=== PATIENT | male | born 1960 ===

== ENCOUNTER 2018-02-12 09:02 | Emergency (ER) | payer OTHER ==
[2018-02-12 09:08] VITALS: RESP 18
[2018-02-12] MEDS ORDERED: HYDROcodone/APAP 5-325MG 1 EACH TAB PO STA (09:36)
--- NOTE | 2018-02-12 09:37 | ED ---
Fall HPI - General Chief Complaint: Fall Stated Complaint: Fall, chest pain Time Seen by Provider: 02/12/18 09:25 Source: patient, RN notes reviewed Mode of arrival: ambulatory Limitations: no limitations - History of Present Illness Initial Comments: This a 57-year-old male presents emergency Department chief complaint rib injury. Patient states on Sunday he was working on a trailer states that he fell onto the edge of the trailer. Patient states she struck the center to left side of his lower ribs. He states it was sore but has progressively gotten worse. Hurts to take deep inspiration and when he bends forward over his ribs. Patient states he has no abdominal pain denies any hematuria or melena. Patient denies any head injury, loss conscious or any extremity injuries.. - Related Data Home Medications Medication Instructions Recorded Confirmed Flexeril(Unknown Dose) 1 tab PO ONCE PRN 02/12/18 02/12/18 Previous Rx's Medication Instructions Recorded Hydrocodone/Acetaminophen [[place] 1 tab PO Q6HR PRN #12 tab 02/12/18 5-325] Ibuprofen [Motrin] 600 mg PO Q8HR PRN #30 tab 02/12/18 Allergies Allergy/AdvReac Type Severity Reaction Status Date / Time No Known Allergies Allergy Verified 02/12/18 09:12 Review of Systems ROS Statement: Those systems with pertinent positive or pertinent negative responses have been documented in the HPI. ROS Other: All systems not noted in ROS Statement are negative. Past Medical History Past Medical History: No Reported History History of Any Multi-Drug Resistant Organisms: None Reported Past Surgical History: No Surgical Hx Reported Past Psychological History: No Psychological Hx Reported Smoking Status: Former smoker Past Alcohol Use History: Occasional Past Drug Use History: None Reported General Exam Limitations: no limitations General appearance: alert, in no apparent distress Head exam: Present: atraumatic, normocephalic, normal inspection Eye exam: Present: normal appearance, PERRL, EOMI. Absent: scleral icterus, conjunctival injection, periorbital swelling ENT exam: Present: normal exam, normal oropharynx, mucous membranes moist Neck exam: Present: normal inspection, full ROM. Absent: tenderness, meningismus, lymphadenopathy Respiratory exam: Present: normal lung sounds bilaterally, chest wall tenderness (Tenderness to the left anterior lateral lower ribs). Absent: respiratory distress, wheezes, rales, rhonchi, stridor Cardiovascular Exam: Present: regular rate, normal rhythm, normal heart sounds. Absent: systolic murmur, diastolic murmur, rubs, gallop, clicks GI/Abdominal exam: Present: soft, normal bowel sounds. Absent: distended, tenderness, guarding, rebound, rigid Extremities exam: Present: normal inspection, full ROM, normal capillary refill. Absent: tenderness, pedal edema, joint swelling, calf tenderness Back exam: Present: full ROM. Absent: tenderness, CVA tenderness (R), CVA tenderness (L) Skin exam: Present: warm, dry, intact, normal color. Absent: rash Course Vital Signs 02/12/18 02/12/18 02/12/18 09:05 11:17 12:38 Temperature 98.3 F 97.8 F Pulse Rate 86 74 64 Respiratory 18 18 18 Rate Blood Pressure 208/100 195/99 169/88 O2 Sat by Pulse 99 98 97 Oximetry Medical Decision Making - Medical Decision Making 57-year-old male presents from for fall, rib injury. There is no acute fracture. Patient was found be hypertensive patient had further workup at this time including labwork EKG and troponin. Patient thyroid is unremarkable EKG unremarkable. Patient blood pressure is elevated secondary to pain. Patient's blood pressure did trend down. He'll be given primary care physician to follow up with, provided pain control. We did discuss incentive spirometry. - Lab Data Result diagrams: 02/12/18 12:24 02/12/18 12:24 Lab Results 02/12/18 02/12/18 02/12/18 Range/Units 12:24 12:24 12:24 WBC 7.6 (3.8-10.6) k/uL RBC 4.98 (4.30-5.90) m/uL Hgb 15.6 (13.0-17.5) gm/dL Hct 46.8 (39.0-53.0) % MCV 93.9 (80.0-100.0) fL MCH 31.3 (25.0-35.0) pg MCHC 33.4 (31.0-37.0) g/dL RDW 13.7 (11.5-15.5) % Plt Count 250 (150-450) k/uL Neutrophils % 72 % Lymphocytes % 16 % Monocytes % 8 % Eosinophils % 1 % Basophils % 1 % Neutrophils # 5.5 (1.3-7.7) k/uL Lymphocytes # 1.2 (1.0-4.8) k/uL Monocytes # 0.6 (0-1.0) k/uL Eosinophils # 0.1 (0-0.7) k/uL Basophils # 0.1 (0-0.2) k/uL Sodium 140 (137-145) mmol/L Potassium 4.4 (3.5-5.1) mmol/L Chloride 101 (98-107) mmol/L Carbon Dioxide 27 (22-30) mmol/L Anion Gap 12 mmol/L BUN 11 (9-20) mg/dL Creatinine 0.79 (0.66-1.25) mg/dL Est GFR (CKD-EPI)AfAm >90 (>60 ml/min/1.73 sqM) Est GFR (CKD-EPI)NonAf >90 (>60 ml/min/1.73 sqM) Glucose 116 H (74-99) mg/dL Calcium 9.5 (8.4-10.2) mg/dL Total Bilirubin 1.2 (0.2-1.3) mg/dL AST 48 (17-59) U/L ALT 36 (21-72) U/L Alkaline Phosphatase 85 (38-126) U/L Troponin I <0.012 (0.000-0.034) ng/mL Total Protein 7.5 (6.3-8.2) g/dL Albumin 4.3 (3.5-5.0) g/dL Disposition Clinical Impression: Fall, Rib contusion, Hypertension Disposition: HOME SELF-CARE Condition: Stable Instructions: Rib Contusion (ED) Additional Instructions: Please return to the Emergency Department if symptoms worsen or any other concerns. Prescriptions: Hydrocodone/Acetaminophen [[place] 5-325] 1 tab PO Q6HR PRN #12 tab PRN Reason: Pain Ibuprofen [Motrin] 600 mg PO Q8HR PRN #30 tab PRN Reason: Pain Is patient prescribed a controlled substance at d/c from ED?: Yes If prescribed controlled substance>3 days was MAPS reviewed?: No When asked, does pt state using other controlled substances?: No Referrals: Charity Lind MD [REFERRING] - 1-2 days Time of Disposition: 13:46
--- NOTE | 2018-02-12 10:22 | XR ---
EXAMINATION TYPE: XR ribs LT w pa chest xray DATE OF EXAM: 02/12/2018 CLINICAL HISTORY: Chest and left-sided rib pain after injury. TECHNIQUE: Single frontal view of the chest is obtained. A frontal and oblique images of the left-jimmy ed ribs are acquired. COMPARISON: None FINDINGS: Somewhat low lung volumes are seen with patchy bibasilar linear atelectasis. No pleural eff usion or pneumothorax is appreciated bilaterally. The cardiac silhouette size is within normal limit s. The osseous structures are intact. Dedicated images left-sided ribs show no acute displaced fracture. Overlying soft tissue is unremarka ble. IMPRESSION: 1. Low lung volumes with patchy bibasilar atelectasis. 2. No acute displaced left-sided rib fractures are seen.
[2018-02-12] MEDS ORDERED: KETOROLAC 30 MG/ML 1 ML VIAL IVP STA (11:24)
[2018-02-12 13:04] LABS: Basophils # (A) 0.1 k/uL (0-0.2); Basophils % (A) 1 %; Eosinophils # (A) 0.1 k/uL (0-0.7); Eosinophils % (A) 1 %; HCT 46.8 % (39.0-53.0); HGB 15.6 gm/dL (13.0-17.5); Lymphocytes # (A) 1.2 k/uL (1.0-4.8); Lymphocytes % (A) 16 %; MCH 31.3 pg (25.0-35.0); MCHC 33.4 g/dL (31.0-37.0); MCV 93.9 fL (80.0-100.0); Mean Platelet Volume 7.1; Monocytes # (A) 0.6 k/uL (0-1.0); Monocytes % (A) 8 %; Neutrophils # (A) 5.5 k/uL (1.3-7.7); Neutrophils % (A) 72 %; Platelet Count 250 k/uL (150-450); RBC 4.98 m/uL (4.30-5.90); RDW 13.7 % (11.5-15.5); WBC 7.6 k/uL (3.8-10.6)
[2018-02-12 13:12] LABS: ALT 36 U/L (21-72); AST 48 U/L (17-59); Albumin 4.3 g/dL (3.5-5.0); Alkaline Phosphatase 85 U/L (38-126); Anion Gap 12 mmol/L; Blood Urea Nitrogen 11 mg/dL (9-20); Calcium 9.5 mg/dL (8.4-10.2); Carbon Dioxide 27 mmol/L (22-30); Chloride 101 mmol/L (98-107); Glucose 116 mg/dL (74-99); Potassium 4.4 mmol/L (3.5-5.1); Sodium 140 mmol/L (137-145); Total Bilirubin 1.2 mg/dL (0.2-1.3); Total Protein 7.5 g/dL (6.3-8.2)
[2018-02-12 14:07] VITALS: BP 173/88; PULSE 68; TEMP 97.9
== END 2018-02-12 14:15 | disposition home or self-care (01) ==
LOC: EC 09:02
DX: S20.212A Contusion of left front wall of thorax, initial encounter (principal); I10 Essential (primary) hypertension; Z87.891 Personal history of nicotine dependence; W17.89XA Other fall from one level to another, initial encounter; Y93.89 Activity, other specified
CPT/HCPCS: 36415; 93005; 80053; 84484; 85025; 71101; 99284; 96374; J1885

== ENCOUNTER 2022-01-21 15:04 | Inpatient (IN) | payer OTHER ==
[2022-01-21] MEDS ORDERED: SODIUM CHLORIDE 0.9% 1,000 ML IV STA ×2 (16:52→19:45)
[2022-01-21] MEDS ORDERED: ONDANSETRON 4 MG/2 ML VIAL IVP STA (16:52)
[2022-01-21] MEDS ORDERED: KETOROLAC 15 MG/ML 1 ML VIAL IVP STA (16:52)
--- NOTE | 2022-01-21 17:07 | ED ---
General Adult HPI - General Chief complaint: Abdominal Pain Stated complaint: Abd pain Time Seen by Provider: 01/21/22 16:41 Source: patient, RN notes reviewed Mode of arrival: ambulatory Limitations: no limitations - History of Present Illness Initial comments: 61-year-old male presents to the emergency department for evaluation of lower abdominal pain, onset 2 weeks ago which was preceded by eating a sandwich he suspects was spoiled. Reports he then developed nausea, vomiting, and diarrhea, and has had ongoing lower abdominal discomfort since. Describes the pain as discomfort, not cramping or burning. Reports ongoing episodes of diarrhea along with normal formed stool. States he has been experiencing some shortness of breath with activity over the past few days. Denies fever, chills, body aches, headache, dizziness, chest pain, cough, hematochezia, dysuria, or hematuria. - Related Data Home Medications Medication Instructions Recorded Confirmed Acetaminophen [Tylenol] 1,000 mg PO Q4-6H PRN 01/21/22 01/21/22 Previous Rx's Medication Instructions Recorded Ibuprofen [Motrin] 600 mg PO Q8HR PRN #30 tab 02/12/18 Allergies Allergy/AdvReac Type Severity Reaction Status Date / Time No Known Allergies Allergy Verified 01/21/22 20:50 Review of Systems ROS Statement: Those systems with pertinent positive or pertinent negative responses have been documented in the HPI. ROS Other: All systems not noted in ROS Statement are negative. Past Medical History Past Medical History: No Reported History Additional Past Medical History / Comment(s): Diverticulitis History of Any Multi-Drug Resistant Organisms: None Reported Past Surgical History: No Surgical Hx Reported Past Psychological History: No Psychological Hx Reported Smoking Status: Never smoker Past Alcohol Use History: Occasional Past Drug Use History: Marijuana General Exam Limitations: no limitations (Well-developed, well-nourished male in no acute distress. Initial temperature 97.1, pulse 102, respirations 18, blood pressure 146/78, pulse ox 100% on room air.) General appearance: alert, in no apparent distress Eye exam: Present: normal appearance, PERRL, EOMI. Absent: scleral icterus, con junctival injection, periorbital swelling ENT exam: Present: normal exam, normal oropharynx, mucous membranes moist Neck exam: Present: normal inspection, full ROM. Absent: tenderness, meningismus, lymphadenopathy Respiratory exam: Present: normal lung sounds bilaterally. Absent: respiratory distress, wheezes, rales, rhonchi, stridor, chest wall tenderness Cardiovascular Exam: Present: regular rate, normal rhythm, normal heart sounds. Absent: systolic murmur, diastolic murmur, rubs, gallop, clicks GI/Abdominal exam: Present: soft, normal bowel sounds. Absent: distended, tenderness, guarding, rebound, rigid Back exam: Present: normal inspection. Absent: CVA tenderness (R), CVA tenderness (L) Neurological exam: Present: alert, oriented X3, normal gait Psychiatric exam: Present: normal affect, normal mood Skin exam: Present: warm, dry, intact, normal color Course Vital Signs 01/21/22 01/21/22 01/21/22 15:11 16:52 21:00 Temperature 97.1 F L 97.8 F Pulse Rate 102 H 88 75 Respiratory 18 18 18 Rate Blood Pressure 146/78 138/72 121/71 O2 Sat by Pulse 100 100 100 Oximetry - Reevaluation(s) Reevaluation #1: 01/21/22 19:15 Patient updated on results at this point. Discussed hospital admission. He is agreeable with this plan of care. 01/21/22 19:[address] Espinosa regarding CT findings. 01/21/22 19:[address] Ho regarding this patient's care and CT results. Patient will be NPO and antibiotic therapy initiated. Medicine consulted. Patient and spouse updated on plan of care. He remains comfortable with no complaints of pain at this time. Medical Decision Making - Medical Decision Making This is a pleasant 61-year-old male with no significant past medical history who presents to the emergency department for evaluation of abdominal discomfort accompanied by nausea and vomiting x2 weeks. Upon exam, patient is pleasant and is in no acute distress. Patient appears somewhat pale and complains of lower abdominal pain, though is mildly uncomfortable across the mid abdomen upon palpation. He is not experiencing any vomiting at this time. He did complain of shortness of breath with activity; chest x-ray was unremarkable and EKG shows normal sinus rhythm with no ectopy. Patient was given IV fluids, Toradol and Zofran with significant improvement. Laboratory studies were obtained showing leukocytosis, hyponatremia, mild lactic acidosis, and hemoglobin 7.5. CT is concerning for small perforation and possible developing abscess. I did speak with Dr. Ho regarding these findings. Patient will be admitted and IV antibiotic treatment will be initiated. Attending: Thad. - Lab Data Result diagrams: 01/21/22 17:24 01/21/22 17:24 Lab Results 01/21/22 01/21/22 01/21/22 Range/Units 17:24 17:24 17:24 WBC 18.5 H (3.8-10.6) k/uL RBC 2.94 L (4.30-5.90) m/uL Hgb 7.5 L (13.0-17.5) gm/dL Hct 24.2 L (39.0-53.0) % MCV 82.2 (80.0-100.0) fL MCH 25.6 (25.0-35.0) pg MCHC 31.2 (31.0-37.0) g/dL RDW 23.5 H (11.5-15.5) % Plt Count 420 (150-450) k/uL MPV 7.3 Neutrophils % 81 % Lymphocytes % 10 % Monocytes % 6 % Eosinophils % 1 % Basophils % 0 % Neutrophils # 15.0 H (1.3-7.7) k/uL Lymphocytes # 1.8 (1.0-4.8) k/uL Monocytes # 1.1 H (0-1.0) k/uL Eosinophils # 0.1 (0-0.7) k/uL Basophils # 0.1 (0-0.2) k/uL Hypochromasia Marked Anisocytosis Moderate Microcytosis Slight Sodium 126 L (137-145) mmol/L Potassium 3.6 (3.5-5.1) mmol/L Chloride 97 L (98-107) mmol/L Carbon Dioxide 22 (22-30) mmol/L Anion Gap 7 mmol/L BUN 14 (9-20) mg/dL Creatinine 0.89 (0.66-1.25) mg/dL Est GFR (CKD-EPI)AfAm >90 (>60 ml/min/1.73 sqM) Est GFR (CKD-EPI)NonAf >90 (>60 ml/min/1.73 sqM) Glucose 127 H (74-99) mg/dL Lactic Ac Sepsis Rflx Plasma Lactic Acid Karl 2.4 H* (0.7-2.0) mmol/L Calcium 7.3 L (8.4-10.2) mg/dL Total Bilirubin 4.6 H (0.2-1.3) mg/dL AST 48 (17-59) U/L ALT 18 (4-49) U/L Alkaline Phosphatase 258 H (38-126) U/L Troponin I (0.000-0.034) ng/mL Total Protein 7.0 (6.3-8.2) g/dL Albumin 2.3 L (3.5-5.0) g/dL Lipase 35 (23-300) U/L Coronavirus (PCR) (Not Detectd) 01/21/22 01/21/22 01/21/22 Range/Units 17:24 17:33 17:54 WBC (3.8-10.6) k/uL RBC (4.30-5.90) m/uL Hgb (13.0-17.5) gm/dL Hct (39.0-53.0) % MCV (80.0-100.0) fL MCH (25.0-35.0) pg MCHC (31.0-37.0) g/dL RDW (11.5-15.5) % Plt Count (150-450) k/uL MPV Neutrophils % % Lymphocytes % % Monocytes % % Eosinophils % % Basophils % % Neutrophils # (1.3-7.7) k/uL Lymphocytes # (1.0-4.8) k/uL Monocytes # (0-1.0) k/uL Eosinophils # (0-0.7) k/uL Basophils # (0-0.2) k/uL Hypochromasia Anisocytosis Microcytosis Sodium (137-145) mmol/L Potassium (3.5-5.1) mmol/L Chloride (98-107) mmol/L Carbon Dioxide (22-30) mmol/L Anion Gap mmol/L BUN (9-20) mg/dL Creatinine (0.66-1.25) mg/dL Est GFR (CKD-EPI)AfAm (>60 ml/min/1.73 sqM) Est GFR (CKD-EPI)NonAf (>60 ml/min/1.73 sqM) Glucose (74-99) mg/dL Lactic Ac Sepsis Rflx Y Plasma Lactic Acid Karl (0.7-2.0) mmol/L Calcium (8.4-10.2) mg/dL Total Bilirubin (0.2-1.3) mg/dL AST (17-59) U/L ALT (4-49) U/L Alkaline Phosphatase (38-126) U/L Troponin I <0.012 (0.000-0.034) ng/mL Total Protein (6.3-8.2) g/dL Albumin (3.5-5.0) g/dL Lipase (23-300) U/L Coronavirus (PCR) Not Detected (Not Detectd) - EKG Data EKG shows normal: sinus rhythm Rate: normal EKG Comments: EKG obtained at 1730 shows sinus rhythm. Ventricular rate 82, KS interval 149, QRS duration 101, QT/QTC 406/445. Interpretation normal ECG. - Radiology Data Radiology results: report reviewed, image reviewed CT of the abdomen and pelvis with contrast was obtained. Report was reviewed in its entirety. Impression per Dr. Velasquez is there is abdominal ascites. There is extraluminal air bubbles seen in the left posterior abdomen as well as some complex density that is suggestive of developing abscess. This is best seen on axial image 50-53. Ultrasound of the right upper quadrant was obtained. Report was reviewed in its entirety. Impression per Dr. Espinosa is no gallstones or dilated ducts. Minimal gallbladder wall thickening could relate to cholecystitis without a gallstone present. Two-view chest x-ray was obtained. Report was reviewed in its entirety. I mpression per Dr. Espinosa is minimal subsegmental atelectasis. Normal heart. Disposition Clinical Impression: Nausea, Abdominal pain, Acute abdomen Disposition: ADMITTED IP TO THIS HOSP Condition: Serious Decision Date: 01/21/22 Decision Time: 19:56
[2022-01-21 17:38] LABS: Anisocytosis Moderate; Basophils # (A) 0.1 k/uL (0-0.2); Basophils % (A) 0 %; Eosinophils # (A) 0.1 k/uL (0-0.7); Eosinophils % (A) 1 %; HCT 24.2 % (39.0-53.0); HGB 7.5 gm/dL (13.0-17.5); Hypochromasia Marked; Lymphocytes # (A) 1.8 k/uL (1.0-4.8); Lymphocytes % (A) 10 %; MCH 25.6 pg (25.0-35.0); MCHC 31.2 g/dL (31.0-37.0); MCV 82.2 fL (80.0-100.0); Mean Platelet Volume 7.3; Microcytosis Slight; Monocytes # (A) 1.1 k/uL (0-1.0); Monocytes % (A) 6 %; Neutrophils % (A) 81 %; Platelet Count 420 k/uL (150-450); RBC 2.94 m/uL (4.30-5.90); RDW 23.5 % (11.5-15.5); WBC 18.5 k/uL (3.8-10.6)
[2022-01-21 17:52] LABS: ALT 18 U/L (4-49); AST 48 U/L (17-59); African American GFR (CKD) >90 (>60 ml/min/1.73 sqM); Albumin 2.3 g/dL (3.5-5.0); Alkaline Phosphatase 258 U/L (38-126); Anion Gap 7 mmol/L; Blood Urea Nitrogen 14 mg/dL (9-20); Calcium 7.3 mg/dL (8.4-10.2); Carbon Dioxide 22 mmol/L (22-30); Chloride 97 mmol/L (98-107); Glucose 127 mg/dL (74-99); Lipase 35 U/L (23-300); Non-African American GFR(CKD) >90 (>60 ml/min/1.73 sqM); Potassium 3.6 mmol/L (3.5-5.1); Sodium 126 mmol/L (137-145); Total Bilirubin 4.6 mg/dL (0.2-1.3)
--- NOTE | 2022-01-21 18:13 | XR ---
EXAMINATION TYPE: XR chest 2V DATE OF EXAM: 01/21/2022 COMPARISON: NONE HISTORY: Short of breath TECHNIQUE: 2 views FINDINGS: There is small linear density left lung base. Heart is normal. There is no heart failure. There are chest leads. Costophrenic angles are clear. IMPRESSION: Minimal subsegmental atelectasis. Normal heart.
--- NOTE | 2022-01-21 19:31 | CT ---
EXAMINATION TYPE: CT abdomen pelvis w con DATE OF EXAM: 01/21/2022 COMPARISON: None HISTORY: Generalized abdominal pain. CT DLP: 1492.5 mGycm Automated exposure control for dose reduction was used. CONTRAST: Performed with IV Contrast, patient injected with 100ml mL of Isovue 300. Images obtained from the diaphragm to the floor the pelvis with IV contrast. There is some calcified pleural plaque at the right lung base. There is no pleural effusion. Heart si ze is normal. No pericardial effusion. Liver and spleen are intact. Stomach is intact. There is no evidence of pancreatic mass. Gallbladder appears normal. There is no adrenal mass. Kidneys show satisfactory contrast opacification. There is no hydronephrosi s. There is no retroperitoneal adenopathy. Bladder distends smoothly. There is no inguinal hernia. There is mild abdominal ascites fluid. There is no evidence of a bowel obstruction. There is some fat stranding and extraluminal air and unusual fluid accumulation in the left mid abdomen. The lumbar vertebrae have normal alignment. Posterior elements show spondylolysis at L5 level. No spo ndylolisthesis.. The bony pelvis is intact. IMPRESSION: There is abdominal ascites. There is extraluminal air bubbles seen in the left posterior abdomen as w ell as some complex density that is suggestive of developing abscess. This is best seen on axial imag e 50-53. This exam was discussed with the emergency room attending staff at 7:30 PM.
[2022-01-21] MEDS ORDERED: ONDANSETRON 4 MG/2 ML VIAL IVP PRN (19:47)
[2022-01-21] MEDS ORDERED: NALOXONE 0.4 MG/ML 1 ML VIAL IV PRN (19:47)
[2022-01-21] MEDS ORDERED: HYDROmorphone 0.5 MG/0.5 ML SYRINGE IVP PRN (19:47)
[2022-01-21] MEDS ORDERED: PIPERACILLIN-TAZOBACTAM 3.375 GM in SODIUM CHLORIDE 0.9% 100 ML IVPB ONE (20:00)
[2022-01-21] MEDS ORDERED: metroNIDAZOLE-NS PMX 500 MG in SALINE 1 100ML.BAG IVPB STA (20:17)
--- NOTE | 2022-01-21 20:56 | US ---
EXAMINATION TYPE: US abdomen limited DATE OF EXAM: 01/21/2022 COMPARISON: NONE CLINICAL HISTORY: vomiting, elevated bilirubin. EXAM MEASUREMENTS: Liver Length: 17.9 cm Gallbladder Wall: 0.4 cm CBD: 0.4 cm Right Kidney: 11.7 x 6.0 x 5.2 cm Extensive overlying bowel gas, large body habitus, technically difficult, limited study. Pancreas: Obscured by bowel gas Liver: Increased attenuation, decreased visualization of vessels suggestive of fatty infiltrate, upp er limits of normal in size Gallbladder: possible sludge, wall slightly thickened Evidence for sonographic Naav's sign: no CBD: very limited visualization Right Kidney: limited views appear wnl IMPRESSION: No gallstones or dilated ducts. Minimal gallbladder wall thickening could relate to cholecystitis wit hout a gallstone present.
[2022-01-21] MEDS: SODIUM CHLORIDE 0.9% 1,000 ML IV SCH (21:18)
[2022-01-21 21:38] LABS: INR 1.2 (<1.2); Prothrombin Time 12.4 sec (9.0-12.0)
[2022-01-21 21:51] LABS: Appearance,Urine Clear (Clear); Bilirubin,Urine 1+ (Negative); Blood,Urine Negative (Negative); Color,Urine Yellow; Glucose,Urine (UA) Negative (Negative); Ketones,Urine Negative (Negative); Leukocyte Esterase,Urine Negative (Negative); Nitrite,Urine Negative (Negative); Protein,Urine Negative (Negative)
[2022-01-22] MEDS: PIPERACILLIN-TAZOBACTAM 3.375 GM in SODIUM CHLORIDE 0.9% 100 ML IVPB SCH ×4 (00:54→23:34)
[2022-01-22] MEDS: HEPARIN SODIUM,PORCINE/PF 5,000 UNIT/0.5 ML SYRINGE SQ SCH ×4 (00:55→23:35)
[2022-01-22] MEDS: SODIUM CHLORIDE 0.9% 1,000 ML IV SCH ×3 (05:00→22:37)
--- NOTE | 2022-01-22 09:24 | P.GSHP ---
History of Present Illness H&P Date: 01/22/22 Chief Complaint: Bowel perforation 61-year-old male came to the hospital with complaints of lower abdominal pain left slightly more than right. Patient states symptoms of an going on for the last few weeks poor increasing somewhat. Apparently in the ER he felt better after the initial IV fluids and pain medicine and wanted to go home. He was noted to have an elevated white blood cell count, elevated bilirubin and alkaline phosphatase. CAT scan was performed which shows free fluid within the abdomen and multiple small extraluminal pockets of air adjacent to the proximal sigmoid colon extending in the retroperitoneum. Patient states his pain today is a 2 out of 10. No history of known diverticulitis or bowel issues. No colonoscopy. Denies fevers or chills. He is afebrile overnight. No tachycardia. Repeat labs pending. INR is normal. Patient says he has been drinking for years and drinks 2-3 beers on a daily basis. In the past he did drink liquor more heavily. Was never told that he has any issues with his liver. - Review of Systems Comment: The patient denies any acute changes in vision or hearing, no dysphagia or odynophagia, no chest pain or shortness of breath, no dysuria or hematuria, no headache, no runny nose, no rectal bleeding or melena, no unexplained weight loss Past Medical History Past Medical History: No Reported History Additional Past Medical History / Comment(s): Diverticulitis History of Any Multi-Drug Resistant Organisms: None Reported Past Surgical History: No Surgical Hx Reported Past Psychological History: No Psychological Hx Reported Smoking Status: Never smoker Past Alcohol Use History: Occasional Past Drug Use History: Marijuana Medications and Allergies Home Medications Medication Instructions Recorded Confirmed Type Ibuprofen [Motrin] 600 mg PO Q8HR PRN #30 tab 02/12/18 01/21/22 Rx Acetaminophen [Tylenol] 1,000 mg PO Q4-6H PRN 01/21/22 01/21/22 History Allergies Allergy/AdvReac Type Severity Reaction Status Date / Time No Known Allergies Allergy Verified 01/21/22 20:50 Surgical - Exam Vital Signs Temp Pulse Resp BP Pulse Ox 97.1 F L 102 H 18 146/78 100 01/21/22 15:11 01/21/22 15:11 01/21/22 15:11 01/21/22 15:11 01/21/22 15:11 Physical exam: General: Well-developed, well-nourished HEENT: Normocephalic, sclerae nonicteric Abdomen: Mild bilateral lower quadrant tenderness, nondistended Extremities: No edema Neuro: Alert and oriented Results - Labs 01/21/22 17:24 01/21/22 17:24 Abnormal Lab Results - Last 24 Hours (Table) 01/21/22 01/21/22 01/21/22 Range/Units 17:24 17:24 17:24 WBC 18.5 H (3.8-10.6) k/uL RBC 2.94 L (4.30-5.90) m/uL Hgb 7.5 L (13.0-17.5) gm/dL Hct 24.2 L (39.0-53.0) % RDW 23.5 H (11.5-15.5) % Neutrophils # 15.0 H (1.3-7.7) k/uL Monocytes # 1.1 H (0-1.0) k/uL PT (9.0-12.0) sec INR (<1.2) Sodium 126 L (137-145) mmol/L Chloride 97 L (98-107) mmol/L Glucose 127 H (74-99) mg/dL Plasma Lactic Acid Karl 2.4 H* (0.7-2.0) mmol/L Calcium 7.3 L (8.4-10.2) mg/dL Total Bilirubin 4.6 H (0.2-1.3) mg/dL Alkaline Phosphatase 258 H (38-126) U/L Albumin 2.3 L (3.5-5.0) g/dL Urine Bilirubin (Negative) 01/21/22 01/21/22 Range/Units 20:57 21:22 WBC (3.8-10.6) k/uL RBC (4.30-5.90) m/uL Hgb (13.0-17.5) gm/dL Hct (39.0-53.0) % RDW (11.5-15.5) % Neutrophils # (1.3-7.7) k/uL Monocytes # (0-1.0) k/uL PT 12.4 H (9.0-12.0) sec INR 1.2 H (<1.2) Sodium (137-145) mmol/L Chloride (98-107) mmol/L Glucose (74-99) mg/dL Plasma Lactic Acid Karl (0.7-2.0) mmol/L Calcium (8.4-10.2) mg/dL Total Bilirubin (0.2-1.3) mg/dL Alkaline Phosphatase (38-126) U/L Albumin (3.5-5.0) g/dL Urine Bilirubin 1+ H (Negative) Diabetes panel 01/21/22 Range/Units 17:24 Sodium 126 L (137-145) mmol/L Potassium 3.6 (3.5-5.1) mmol/L Chloride 97 L (98-107) mmol/L Carbon Dioxide 22 (22-30) mmol/L BUN 14 (9-20) mg/dL Creatinine 0.89 (0.66-1.25) mg/dL Glucose 127 H (74-99) mg/dL Calcium 7.3 L (8.4-10.2) mg/dL AST 48 (17-59) U/L ALT 18 (4-49) U/L Alkaline Phosphatase 258 H (38-126) U/L Total Protein 7.0 (6.3-8.2) g/dL Albumin 2.3 L (3.5-5.0) g/dL Calcium panel 01/21/22 Range/Units 17:24 Calcium 7.3 L (8.4-10.2) mg/dL Albumin 2.3 L (3.5-5.0) g/dL Pituitary panel 01/21/22 Range/Units 17:24 Sodium 126 L (137-145) mmol/L Potassium 3.6 (3.5-5.1) mmol/L Chloride 97 L (98-107) mmol/L Carbon Dioxide 22 (22-30) mmol/L BUN 14 (9-20) mg/dL Creatinine 0.89 (0.66-1.25) mg/dL Glucose 127 H (74-99) mg/dL Calcium 7.3 L (8.4-10.2) mg/dL Adrenal panel 01/21/22 Range/Units 17:24 Sodium 126 L (137-145) mmol/L Potassium 3.6 (3.5-5.1) mmol/L Chloride 97 L (98-107) mmol/L Carbon Dioxide 22 (22-30) mmol/L BUN 14 (9-20) mg/dL Creatinine 0.89 (0.66-1.25) mg/dL Glucose 127 H (74-99) mg/dL Calcium 7.3 L (8.4-10.2) mg/dL Total Bilirubin 4.6 H (0.2-1.3) mg/dL AST 48 (17-59) U/L ALT 18 (4-49) U/L Alkaline Phosphatase 258 H (38-126) U/L Total Protein 7.0 (6.3-8.2) g/dL Albumin 2.3 L (3.5-5.0) g/dL Assessment and Plan (1) Bowel perforation Narrative/Plan: 61-year-old male with presentation of the ER for lower abdominal pain. Patient's CAT scan looks far worse than the patient. His exam and his subjective complaints are quite benign. CAT scan suggests probable perforated diverticulitis localized to the retroperitoneum. Discussed options with patient and his at the bedside. We'll continue with a nonoperative approach given the patient's exam findings. Continue broad-spectrum antibiotics. Begin clear liquid diet. Suspect fluid in the abdomen is related to chronic liver disease and ascites from that. We'll consult GI to evaluate for possible liver disease. Current Visit: Yes Status: Acute Code(s): K63.1 - PERFORATION OF INTESTINE (NONTRAUMATIC) SNOMED Code(s): 94195856
[2022-01-22 09:38] LABS: African American GFR (CKD) 112.5 (60.0-200.0); Anion Gap 9.6 mmol/L (10.00-18.00); BUN/Creat Ratio 12.88 Ratio (12.00-20.00); Blood Urea Nitrogen 10.3 mg/dL (9.0-27.0); Calcium 7.3 mg/dL (8.7-10.3); Carbon Dioxide 21.4 mmol/L (20.0-27.5); Non-African American GFR(CKD) 97.1 (60.0-200.0); Potassium 3.8 mmol/L (3.5-5.5)
[2022-01-22 10:52] LABS: Basophils # (A) 0.06 X 10*3/uL (0.00-0.10); Basophils % (A) 0.4 %; Eosinophils # (A) 0.31 X 10*3/uL (0.04-0.35); Eosinophils % (A) 1.8 %; Immature Grans, Automated 0.6 %; Lymphocytes # (A) 2.02 X 10*3/uL (0.90-5.00); Lymphocytes % (A) 11.9 %; Monocytes # (A) 1.61 X 10*3/uL (0.20-1.00); Monocytes % (A) 9.5 %; NRBC Per 100 WBC 0 /100 WBCS (0.0-0.0); Neutrophils # (A) 12.82 X 10*3/uL (1.80-7.70); Neutrophils % (A) 75.8 %
[2022-01-22 10:54] LABS: HCT 21.3 % (39.6-50.0); HGB 6.3 g/dL (13.0-17.0); Hypochromasia (M) 2+; MCH 24.1 pg (27.0-32.0); MCHC 29.6 g/dL (32.0-37.0); MCV 81.6 fL (80.0-97.0); Mean Platelet Volume 10.2 fL (9.5-12.2); Platelet Count 348 X 10*3/uL (140-440); RBC 2.61 X 10*6/uL (4.40-5.60); RDW 27.7 % (11.5-14.5); Target Cells 2+; WBC 16.92 X 10*3/uL (4.50-10.00)
[2022-01-22] MEDS: metroNIDAZOLE-NS PMX 500 MG in SALINE 1 100ML.BAG IVPB SCH ×2 (17:18→23:35)
--- NOTE | 2022-01-22 17:18 | P.CONS ---
History of Present Illness - Reason for Consult Consult date: 01/22/22 Medical management Requesting physician: Colt Ho - Chief Complaint Abdominal pain - History of Present Illness Past medical history that presents the ED for bilateral lower quadrant abdominal pain. Patient reports pain that started 2 weeks ago that is progressively been getting worse. Pain is cramping in nature, 5 out of 10 in severity and nonradiating. He reports no nausea or vomiting. He reports no hematemesis or melena. He does report a history of drinking daily 2-3 beers. He reports no history of alcohol withdrawal. He denies any headache, lower shunt edema, fever or chills, cough, chest pain, shortness of breath, palpitations, changes in urination. No changes in appetite or weight. He denies any dizziness, numbness/weakness/tingling of the extremities. In the ED, his vital signs were stable. CBC showed a leukocytosis of 18.5 and hemoglobin of 7.5. INR was 1.2. CMP showed sodium 126, chloride of 97, glucose 127, calcium 7.3, total bilirubin of 4.6, alkaline phosphatase 258. Troponin was less than 0.012 with EKG showing no ST changes. Urinalysis positive for 1+ bilirubin. COVID-[address] abdomen and pelvis showed abdominal ascites, extraluminal air bubbles seen in the left posterior abdomen as well as some complex density suggestive of developing abscess. Gallbladder ultrasound shows no gallstones or dilated ducts, minimal gallbladder wall thickening could be related to cholecystitis. Patient is admitted to surgery with medicine on consult. Review of systems have been reviewed and no additional remarkable complaints except as discussed above. General: [non toxic], [no distress], [appears at stated age] Derm: [warm], [dry] Head: [atraumatic], [normocephalic], [symmetric] Eyes: [EOMI], [no lid lag], [icteric sclera] Mouth: [no lip lesion], [mucus membranes moist] Cardiovascular: [S1S2 reg], [no murmur] Lungs: [CTA bilateral], [no rhonchi, no rales] , [no accessory muscle use] Abdominal: [soft], [ nontender to palpation], [no guarding] Ext: [no gross muscle atrophy], [no edema], [no contractures] Neuro: [no focal neuro deficits] Psych: [Alert], [oriented], [appropriate affect] #Perforated diverticulitis #Possible abdominal abscess #Acute blood loss anemia #Hyponatremia #Transaminitis #Chronic alcohol abuse #Morbid obesity Patient presents with abdominal pain that has been ongoing for the past 2 weeks. His abdominal exam is benign. He is hemodynamically stable. CT shows possible perforated diverticulitis and possible abdominal abscess formation. He has been started on Zosyn and Flagyl IV. Blood cultures have been collected. General surgery has evaluated the patient and recommends conservative management for now. GI has also been consulted for further management of this patient. His hemoglobin has dropped from 7.5-6.3. He'll be transfused 1 unit PRBC and CBC will be ordered tomorrow. His transaminitis and elevated total bilirubin is likely related to long-standing alcohol abuse. There are signs of cirrhosis. This could also be the cause for his hyponatremia. There is also a component of dehydration. He will be hydrated with normal saline at 130 mL/h. BMP will be repeated tomorrow morning. Thank you for this consult. Please call sound physicians with additional q uestions or concerns. DVT prophylaxis: SCD boots. Patient names his Chantelle decision maker. He can make decisions for himself. Patient would like to be full code. Past Medical History Past Medical History: No Reported History Additional Past Medical History / Comment(s): Diverticulitis History of Any Multi-Drug Resistant Organisms: None Reported Past Surgical History: No Surgical Hx Reported Past Psychological History: No Psychological Hx Reported Smoking Status: Never smoker Past Alcohol Use History: Occasional Past Drug Use History: Marijuana Medications and Allergies Home Medications Medication Instructions Recorded Confirmed Type Ibuprofen [Motrin] 600 mg PO Q8HR PRN #30 tab 02/12/18 01/21/22 Rx Acetaminophen [Tylenol] 1,000 mg PO Q4-6H PRN 01/21/22 01/21/22 History Allergies Allergy/AdvReac Type Severity Reaction Status Date / Time No Known Allergies Allergy Verified 01/21/22 20:50 Physical Exam Vitals: Vital Signs Temp Pulse Pulse Resp BP BP Pulse Ox 01/22/22 17:08 98.9 F 85 16 115/71 96 01/22/22 15:16 98.2 F 89 16 139/80 01/22/22 14:46 99.4 F 86 16 129/76 99 01/22/22 14:36 99.1 F 91 18 151/83 99 01/22/22 14:00 97.6 F 92 18 100/57 99 01/22/22 08:00 98.8 F 74 16 106/66 98 01/22/22 02:00 98.6 F 80 16 123/67 97 01/21/22 22:25 97.8 F 83 17 127/66 98 01/21/22 21:00 75 18 121/71 100 Intake and Output 01/22/22 01/22/22 01/22/22 06:59 14:59 22:59 Intake Total 0 310 Balance 0 310 Intake: Blood Product 0 310 Rc As-1 Unit 0 310 [id number] Other: # Voids 1 Results CBC & Chem 7: 01/22/22 03:41 01/22/22 03:41 Labs: Abnormal Lab Results - Last 24 Hours (Table) 01/21/22 01/21/22 01/21/22 Range/Units 17:24 17:24 17:24 WBC 18.5 H (3.8-10.6) k/uL RBC 2.94 L (4.30-5.90) m/uL Hgb 7.5 L (13.0-17.5) gm/dL Hct 24.2 L (39.0-53.0) % MCH (27.0-32.0) pg MCHC (32.0-37.0) g/dL RDW 23.5 H (11.5-15.5) % Immature Gran # (0.00-0.04) X 10*3/uL Neutrophils # 15.0 H (1.3-7.7) k/uL Monocytes # 1.1 H (0-1.0) k/uL PT (9.0-12.0) sec INR (<1.2) Sodium 126 L (137-145) mmol/L Chloride 97 L (98-107) mmol/L Anion Gap (10.00-18.00) mmol/L Glucose 127 H (74-99) mg/dL Plasma Lactic Acid Karl 2.4 H* (0.7-2.0) mmol/L Calcium 7.3 L (8.4-10.2) mg/dL Total Bilirubin 4.6 H (0.2-1.3) mg/dL Alkaline Phosphatase 258 H (38-126) U/L Albumin 2.3 L (3.5-5.0) g/dL Urine Bilirubin (Negative) Crossmatch 01/21/22 01/21/22 01/21/22 Range/Units 20:57 20:57 21:22 WBC (3.8-10.6) k/uL RBC (4.30-5.90) m/uL Hgb (13.0-17.5) gm/dL Hct (39.0-53.0) % MCH (27.0-32.0) pg MCHC (32.0-37.0) g/dL RDW (11.5-15.5) % Immature Gran # (0.00-0.04) X 10*3/uL Neutrophils # (1.3-7.7) k/uL Monocytes # (0-1.0) k/uL PT 12.4 H (9.0-12.0) sec INR 1.2 H (<1.2) Sodium (137-145) mmol/L Chloride (98-107) mmol/L Anion Gap (10.00-18.00) mmol/L Glucose (74-99) mg/dL Plasma Lactic Acid Karl (0.7-2.0) mmol/L Calcium (8.4-10.2) mg/dL Total Bilirubin (0.2-1.3) mg/dL Alkaline Phosphatase (38-126) U/L Albumin (3.5-5.0) g/dL Urine Bilirubin 1+ H (Negative) Crossmatch See Detail 01/22/22 01/22/22 Range/Units 03:41 03:41 WBC 16.92 H (3.8-10.6) k/uL RBC 2.61 L (4.30-5.90) m/uL Hgb 6.3 L* (13.0-17.5) gm/dL Hct 21.3 L (39.0-53.0) % MCH 24.1 L (27.0-32.0) pg MCHC 29.6 L (32.0-37.0) g/dL RDW 27.7 H (11.5-15.5) % Immature Gran # 0.10 H (0.00-0.04) X 10*3/uL Neutrophils # 12.82 H (1.3-7.7) k/uL Monocytes # 1.61 H (0-1.0) k/uL PT (9.0-12.0) sec INR (<1.2) Sodium 131 L (137-145) mmol/L Chloride (98-107) mmol/L Anion Gap 9.60 L (10.00-18.00) mmol/L Glucose (74-99) mg/dL Plasma Lactic Acid Karl (0.7-2.0) mmol/L Calcium 7.3 L (8.4-10.2) mg/dL Total Bilirubin (0.2-1.3) mg/dL Alkaline Phosphatase (38-126) U/L Albumin (3.5-5.0) g/dL Urine Bilirubin (Negative) Crossmatch
[2022-01-22] MEDS ORDERED: SODIUM CHLORIDE 0.9% 500 ML 500 ML IV ONE (18:43)
[2022-01-22] MEDS ORDERED: ACETAMINOPHEN TAB 325 MG TAB PO PRN (20:28)
[2022-01-23] MEDS: SODIUM CHLORIDE 0.9% 1,000 ML IV SCH ×3 (05:28→23:43)
[2022-01-23] MEDS: HEPARIN SODIUM,PORCINE/PF 5,000 UNIT/0.5 ML SYRINGE SQ SCH ×3 (08:42→23:29)
[2022-01-23] MEDS: metroNIDAZOLE-NS PMX 500 MG in SALINE 1 100ML.BAG IVPB SCH ×3 (08:42→23:29)
[2022-01-23] MEDS: PIPERACILLIN-TAZOBACTAM 3.375 GM in SODIUM CHLORIDE 0.9% 100 ML IVPB SCH ×3 (10:56→23:29)
[2022-01-23 11:10] LABS: Basophils # (A) 0.09 X 10*3/uL (0.00-0.10); Basophils % (A) 0.6 %; Eosinophils # (A) 0.32 X 10*3/uL (0.04-0.35); HCT 25.8 % (39.6-50.0); Immature Grans, Automated 0.8 %; Lymphocytes # (A) 2.43 X 10*3/uL (0.90-5.00); Lymphocytes % (A) 15.5 %; MCH 25.5 pg (27.0-32.0); MCV 82.2 fL (80.0-97.0); Mean Platelet Volume 9.7 fL (9.5-12.2); Monocytes % (A) 10.2 %; NRBC Per 100 WBC 0 /100 WBCS (0.0-0.0); Neutrophils # (A) 11.15 X 10*3/uL (1.80-7.70); Neutrophils % (A) 70.9 %; Platelet Count 352 X 10*3/uL (140-440); RBC 3.14 X 10*6/uL (4.40-5.60); RDW 26.6 % (11.5-14.5); WBC 15.71 X 10*3/uL (4.50-10.00)
[2022-01-23 11:22] LABS: African American GFR (CKD) 118.9 (60.0-200.0); Albumin 1.8 g/dL (3.8-4.9); Albumin/Globulin Ratio 0.45 (1.60-3.17); BUN/Creat Ratio 8.86 Ratio (12.00-20.00); Blood Urea Nitrogen 6.2 mg/dL (9.0-27.0); Calcium 7.1 mg/dL (8.7-10.3); Non-African American GFR(CKD) 102.6 (60.0-200.0); Potassium 3.3 mmol/L (3.5-5.5); Total Bilirubin 3.4 mg/dL (0.30-1.20); Total Protein 5.8 g/dL (6.2-8.2)
[2022-01-23] MEDS ORDERED: POTASSIUM CHLORIDE ER 20 MEQ TAB.ER PO STA (11:32)
--- NOTE | 2022-01-23 11:40 | P.PN ---
Subjective Progress Note Date: 01/23/22 CHIEF COMPLAINT: Bowel perforation HISTORY OF PRESENT ILLNESS: Patient reports that his lower abdominal pain has resolved. He denies any nausea or vomiting. He did report having a bowel movement. He is tolerating clear liquids. Currently Afebrile. Did have a low- grade temp of 99.7 during the night. WBC trending down from 16.9 today 15.71 hemoglobin did go up from 6.3-8.0 after 1 unit of blood platelets 352. Sodium 1:30 potassium 3.3 creatinine 0.7. GI service consult is regarding liver cirrho sis. However, GI service is not available this week. PHYSICAL EXAM: VITAL SIGNS: Reviewed. GENERAL: Well-developed in no acute distress. HEENT: No sclera icterus. Extraocular movements grossly intact. Moist buccal mucosa. Head is atraumatic, normocephalic. ABDOMEN: Soft. Nondistended. Nontender. NEUROLOGIC: Alert and oriented. Cranial nerves II through XII grossly intact. ASSESSMENT: 1. Lower abdominal pain 2. Probable perforated diverticulitis localized to the retroperitoneum 3. Fluid in the abdomen possibly related to chronic liver disease and ascites. Patient does report history of alcohol abuse. He reports he quit drinking over a week ago. 4. Hypokalemia PLAN: -Continue to monitor -Continue antibiotics -Continue clear liquid diet -Continue supportive care -Replace potassium -Repeat CBC and potassium in a.m. -Further recommendations forthcoming per surgical Physician Nutrition Representative note has been reviewed by physician. Signing provider agrees with the documented findings, assessment, and plan of care. I have personally seen and examined the patient, reviewed the PROCESS PUMPER /PAs history, exam and MDM and agree with the assessment and plan as written. Based on total visit time, I have performed more than 50% of the visit. As above: Patient says his pain again is about a 2 out of 10. Labs noted. Hemoglobin improved after transfusion. No active bleeding. Apparently GI not available for liver consultation. This can be performed in the outpatient setting. We'll advance to full liquids. Continue antibiotics. Possible discharge tomorrow if doing well. We'll consider follow-up computed tomography scan next week. Objective - Vital Signs Vital signs: Vital Signs Temp 98.5 F 01/23/22 08:00 Pulse 71 01/23/22 08:00 Resp 18 01/23/22 08:00 BP 110/59 04/11/22 08:00 Pulse Ox 93 L 01/23/22 08:00 Intake & Output 01/22/22 01/23/22 01/23/22 18:59 06:59 18:59 Intake Total 310 Output Total 550 Balance 310 -550 Intake: Blood Product 310 Rc As-1 Unit 310 [id number] Output: Urine 550 Other: # Voids 0 - Labs CBC & Chem 7: 01/23/22 07:57 01/23/22 07:57 Labs: Abnormal Lab Results - Last 24 Hours (Table) 01/21/22 01/23/22 01/23/22 Range/Units 20:57 07:57 07:57 WBC 15.71 H (4.50-10.00) X 10*3/uL RBC 3.14 L (4.40-5.60) X 10*6/uL Hgb 8.0 L (13.0-17.0) g/dL Hct 25.8 L (39.6-50.0) % MCH 25.5 L (27.0-32.0) pg MCHC 31.0 L (32.0-37.0) g/dL RDW 26.6 H (11.5-14.5) % Immature Gran # 0.12 H (0.00-0.04) X 10*3/uL Neutrophils # 11.15 H (1.80-7.70) X 10*3/uL Monocytes # 1.60 H (0.20-1.00) X 10*3/uL Sodium 130 L (135-145) mmol/L Potassium 3.3 L (3.5-5.5) mmol/L Anion Gap 9.00 L (10.00-18.00) mmol/L BUN 6.2 L (9.0-27.0) mg/dL BUN/Creatinine Ratio 8.86 L (12.00-20.00) Ratio Glucose 116 H (70-110) mg/dL Calcium 7.1 L (8.7-10.3) mg/dL Total Bilirubin 3.40 H (0.30-1.20) mg/dL AST 36 H (14-35) U/L Alkaline Phosphatase 203 H (41-126) U/L Total Protein 5.8 L (6.2-8.2) g/dL Albumin 1.8 L (3.8-4.9) g/dL Globulin 4.0 H (1.6-3.3) g/dL Albumin/Globulin Ratio 0.45 L (1.60-3.17) g/dL Crossmatch See Detail Microbiology - Last 24 Hours (Table) 01/21/22 20:57 Blood Culture - Preliminary Blood No Growth after 24 hours
[2022-01-23 13:26] VITALS: BMI 31.6
--- NOTE | 2022-01-23 16:42 | P.PN ---
Subjective Progress Note Date: 01/23/22 No significant events overnight. Pain has significantly improved, patient's tolerating full liquid diet, no nausea vomiting. Admitted for perforated diverticulitis with possible abdominal abscess. Currently on IV Zosyn and Flagyl, no plans for surgical intervention at this time. Hemoglobin 8.5 from 6.3 yesterday after 1 unit PRBC transfusion. Patient is had normal bowel movement today, no blood in stool. He has been afebrile with normal vital signs Objective - Vital Signs Vital signs: Vital Signs Temp 97.7 F 01/23/22 14:00 Pulse 83 01/23/22 14:00 Resp 18 01/23/22 08:00 BP 116/59 01/23/22 14:00 Pulse Ox 98 01/23/22 14:00 Intake & Output 01/22/22 01/23/22 01/23/22 18:59 06:59 18:59 Intake Total 310 Output Total 550 Balance 310 -550 Weight 86.183 kg Intake: Blood Product 310 Rc As-1 Unit 310 [id number] Output: Urine 550 Other: # Voids 0 - Constitutional General appearance: Present: cooperative, no acute distress, obese - EENT Eyes: Present: EOMI, PERRLA, scleral icterus - Respiratory Respiratory: negative: rales, rhonchi, wheezing - Cardiovascular Rhythm: regular Heart sounds: normal: S1, S2 Abnormal Heart Sounds: Absent: systolic murmur, diastolic murmur - Gastrointestinal General gastrointestinal: Present: distended, hyperactive bowel sounds. Absent: tenderness - Neurologic Neurologic: Present: CNII-XII intact. Absent: focal deficits - Musculoskeletal Musculoskeletal: Present: strength equal bilaterally - Psychiatric Psychiatric: Present: A&O x's 3, appropriate affect - Labs CBC & Chem 7: 01/23/22 07:57 01/23/22 07:57 Labs: Abnormal Lab Results - Last 24 Hours (Table) 01/21/22 01/23/22 01/23/22 Range/Units 20:57 07:57 07:57 WBC 15.71 H (4.50-10.00) X 10*3/uL RBC 3.14 L (4.40-5.60) X 10*6/uL Hgb 8.0 L (13.0-17.0) g/dL Hct 25.8 L (39.6-50.0) % MCH 25.5 L (27.0-32.0) pg MCHC 31.0 L (32.0-37.0) g/dL RDW 26.6 H (11.5-14.5) % Immature Gran # 0.12 H (0.00-0.04) X 10*3/uL Neutrophils # 11.15 H (1.80-7.70) X 10*3/uL Monocytes # 1.60 H (0.20-1.00) X 10*3/uL Sodium 130 L (135-145) mmol/L Potassium 3.3 L (3.5-5.5) mmol/L Anion Gap 9.00 L (10.00-18.00) mmol/L BUN 6.2 L (9.0-27.0) mg/dL BUN/Creatinine Ratio 8.86 L (12.00-20.00) Ratio Glucose 116 H (70-110) mg/dL Calcium 7.1 L (8.7-10.3) mg/dL Total Bilirubin 3.40 H (0.30-1.20) mg/dL AST 36 H (14-35) U/L Alkaline Phosphatase 203 H (41-126) U/L Total Protein 5.8 L (6.2-8.2) g/dL Albumin 1.8 L (3.8-4.9) g/dL Globulin 4.0 H (1.6-3.3) g/dL Albumin/Globulin Ratio 0.45 L (1.60-3.17) g/dL Crossmatch See Detail Microbiology - Last 24 Hours (Table) 01/21/22 20:57 Blood Culture - Preliminary Blood No Growth after 24 hours Assessment and Plan Plan: Perforated diverticulitis -With possible abscess formation -Patient is improving with conservative management and IV antibiotics -No plans for surgical intervention at this time -Continue supportive care, advance diet as tolerated #Acute anemia -Possibly related to above, although there is no signs of active bleeding -Check stool for blood -Check iron studies -Hemoglobin increased to 8.5 after 1 unit transfusion yesterday Chronic liver disease with ascites -Secondary to chronic alcohol abuse -Patient counseled extensively on the importance of cessation from alcohol consumption -Continue to monitor liver enzymes and liver function Time with Patient: Less than 30
[2022-01-24] MEDS: SODIUM CHLORIDE 0.9% 1,000 ML IV SCH ×2 (02:06→19:13)
[2022-01-24] MEDS: metroNIDAZOLE-NS PMX 500 MG in SALINE 1 100ML.BAG IVPB SCH ×3 (08:53→23:02)
[2022-01-24] MEDS: PIPERACILLIN-TAZOBACTAM 3.375 GM in SODIUM CHLORIDE 0.9% 100 ML IVPB SCH ×3 (08:56→23:02)
[2022-01-24] MEDS: HEPARIN SODIUM,PORCINE/PF 5,000 UNIT/0.5 ML SYRINGE SQ SCH ×3 (08:57→23:03)
[2022-01-24 09:18] LABS: Basophils % (A) 0.6 %; Eosinophils # (A) 0.32 X 10*3/uL (0.04-0.35); Eosinophils % (A) 1.8 %; HCT 23.3 % (39.6-50.0); HGB 7.2 g/dL (13.0-17.0); Immature Grans, Automated 0.8 %; Lymphocytes # (A) 2.59 X 10*3/uL (0.90-5.00); Lymphocytes % (A) 14.5 %; MCH 25.1 pg (27.0-32.0); MCHC 30.9 g/dL (32.0-37.0); MCV 81.2 fL (80.0-97.0); Mean Platelet Volume 9.4 fL (9.5-12.2); Monocytes # (A) 2.06 X 10*3/uL (0.20-1.00); Monocytes % (A) 11.6 %; NRBC Per 100 WBC 0 /100 WBCS (0.0-0.0); Neutrophils # (A) 12.62 X 10*3/uL (1.80-7.70); Neutrophils % (A) 70.7 %; Platelet Count 290 X 10*3/uL (140-440); RBC 2.87 X 10*6/uL (4.40-5.60); RDW 28.2 % (11.5-14.5); WBC 17.83 X 10*3/uL (4.50-10.00)
[2022-01-24 09:20] LABS: African American GFR (CKD) 118.9 (60.0-200.0); Albumin 1.7 g/dL (3.8-4.9); Albumin/Globulin Ratio 0.44 (1.60-3.17); Anion Gap 8.9 mmol/L (10.00-18.00); BUN/Creat Ratio 5.29 Ratio (12.00-20.00); Blood Urea Nitrogen 3.7 mg/dL (9.0-27.0); Calcium 7.2 mg/dL (8.7-10.3); Carbon Dioxide 18.1 mmol/L (20.0-27.5); Globulin 3.9 g/dL (1.6-3.3); Non-African American GFR(CKD) 102.6 (60.0-200.0); Potassium 3.5 mmol/L (3.5-5.5); Total Bilirubin 2.6 mg/dL (0.30-1.20); Total Protein 5.6 g/dL (6.2-8.2)
[2022-01-24 10:23] LABS: INR 1.29 (0.90-1.11)
[2022-01-24] MEDS ORDERED: POTASSIUM CHLORIDE ER 20 MEQ TAB.ER PO STA (12:24)
--- NOTE | 2022-01-24 12:28 | P.PN ---
Subjective Progress Note Date: 01/24/22 CHIEF COMPLAINT: Bowel perforation HISTORY OF PRESENT ILLNESS: Patient denies any abdominal pain. Denies any nausea or vomiting. He is tolerating a full liquid diet. Afebrile. WBC going up from 13.71-17.83 hemoglobin dropped from 8-7.2 platelets are 290 INR 1.29 sodium 128 creatinine 0.7 total bilirubin down from 3.42.6 AST 34 ALT 12 alk phos 190. Patient's IV has infiltrated and left arm is swollen. Nursing staff will place a new IV PHYSICAL EXAM: VITAL SIGNS: Reviewed. GENERAL: Well-developed in no acute distress. HEENT: No sclera icterus. Extraocular movements grossly intact. Moist buccal mucosa. Head is atraumatic, normocephalic. ABDOMEN: Soft. Nondistended. Nontender. NEUROLOGIC: Alert and oriented. Cranial nerves II through XII grossly intact. ASSESSMENT: 1. Lower abdominal pain 2. Probable perforated diverticulitis localized to the retroperitoneum 3. Fluid in the abdomen possibly related to chronic liver disease and ascites. Patient does report history of alcohol abuse. He reports he quit drinking over a week ago. 4. Hypokalemia PLAN: -Further recommendations forthcoming per surgeon -Continue to monitor -Continue antibiotics -Continue full liquids -Continue supportive care -Replace potassium -Check magnesium -Patient to follow-up outpatient with GI service regarding possible liver cirrhosis Physician Nailhead Puncher note has been reviewed by physician. Signing provider agrees with the documented findings, assessment, and plan of care. I have personally seen and examined the patient, reviewed the TRAINING PERSONNEL SUPERVISOR /PAs history, exam and MDM and agree with the assessment and plan as written. Based on total visit time, I have performed more than 50% of the visit. As above: Labs noted. White blood cell count increased somewhat. Patient looks good. He does have some mild left hand and wrist swelling from an IV that went bad yesterday. No fevers. Abdominal exam is benign. Recheck labs tomorrow. Continue IV antibiotics. Objective - Vital Signs Vital signs: Vital Signs Temp 97.8 F 01/24/22 09:54 Pulse 80 01/24/22 09:54 Resp 18 01/24/22 09:54 BP 114/68 01/24/22 09:54 Pulse Ox 96 01/24/22 09:54 Intake & Output 01/23/22 01/24/22 01/24/22 18:59 06:59 18:59 Intake Total 1650 Balance 1650 Weight 86.183 kg Intake: Intake, IV Titration 1100 Amount Piperacillin-Tazobactam 3 200 .375 gm In Sodium Chloride 0.9% 100 ml @ 25 mls/hr IVPB Q8HR [facility] Rx# :[id number] Sodium Chloride 0.9% 1, 700 000 ml @ 130 mls/hr IV . Q7H42M [facility] Rx#:[id number] metroNIDAZOLE-NS PMX 500 200 mg In Saline 1 100ml.bag @ 100 mls/hr IVPB Q8HR [facility] Rx#:[id number] Oral 550 Other: Voiding Method Toilet Urinal # Voids 2 1 - Labs CBC & Chem 7: 01/24/22 06:17 01/24/22 06:17 Labs: Abnormal Lab Results - Last 24 Hours (Table) 01/24/22 01/24/22 01/24/22 Range/Units 06:17 06:17 06:17 WBC 17.83 H (4.50-10.00) X 10*3/uL RBC 2.87 L (4.40-5.60) X 10*6/uL Hgb 7.2 L (13.0-17.0) g/dL Hct 23.3 L (39.6-50.0) % MCH 25.1 L (27.0-32.0) pg MCHC 30.9 L (32.0-37.0) g/dL RDW 28.2 H (11.5-14.5) % MPV 9.4 L (9.5-12.2) fL Immature Gran # 0.14 H (0.00-0.04) X 10*3/uL Neutrophils # 12.62 H (1.80-7.70) X 10*3/uL Monocytes # 2.06 H (0.20-1.00) X 10*3/uL PT 14.0 H (9.9-11.9) sec INR 1.29 H (0.90-1.11) Sodium 128 L (135-145) mmol/L Carbon Dioxide 18.1 L (20.0-27.5) mmol/L Anion Gap 8.90 L (10.00-18.00) mmol/L BUN 3.7 L (9.0-27.0) mg/dL BUN/Creatinine Ratio 5.29 L (12.00-20.00) Ratio Calcium 7.2 L (8.7-10.3) mg/dL Total Bilirubin 2.60 H (0.30-1.20) mg/dL Alkaline Phosphatase 190 H (41-126) U/L Total Protein 5.6 L (6.2-8.2) g/dL Albumin 1.7 L (3.8-4.9) g/dL Globulin 3.9 H (1.6-3.3) g/dL Albumin/Globulin Ratio 0.44 L (1.60-3.17) g/dL Microbiology - Last 24 Hours (Table) 01/21/22 20:57 Blood Culture - Preliminary Blood No Growth after 48 hours
--- NOTE | 2022-01-24 17:56 | P.PN ---
Subjective Progress Note Date: 01/24/22 (delayed charting seen at 1330) Principal diagnosis: abdominal pain Patient is a 61-year-old male with no known past medical history who has been admitted for diverticulitis with possible microperforation. Patient seen and examined at bedside with family present. He is tolerating his diet well without additional nausea, vomiting, or belly pain. He's been having normal bowel movements. He has no plans at this time and is wanting to go home. General: non toxic, no distress, appears at stated age Derm: warm, dry Head: atraumatic, normocephalic, symmetric Eyes: EOMI, no lid lag, anicteric sclera Mouth: no lip lesion, mucus membranes moist Cardiovascular: S1S2 reg, no murmur, positive posterior tibial pulse bilateral, Lungs: CTA bilateral, no rhonchi, no rales , no accessory muscle use Abdominal: soft, distended non tender to palpation, no guarding, no appreciable organomegaly Ext: no gross muscle atrophy, no edema, no contractures Neuro: CN II-XI grossly intact, no focal neuro deficits Psych: Alert, oriented, appropriate affect Assessment/plan: Perforated diverticulitis -With possible abscess formation - surgery recs - continue with zosyn and flagyl - d/w him at length the improtanceof outpatient f/u for colonoscopy Acute anemia -Possibly related to above, although there is no signs of active bleeding -Check iron studies - follow CBC Chronic liver disease with ascites -Secondary to chronic alcohol abuse -Continue to monitor liver enzymes and liver function Hyponatremia with cirrhosis - due to flud overlad - stop IVF fluids - Lasix X 1 Objective - Vital Signs Vital signs: Vital Signs Temp 98.3 F 01/24/22 13:51 Pulse 81 01/24/22 13:51 Resp 18 01/24/22 09:54 BP 137/74 01/24/22 13:51 Pulse Ox 96 01/24/22 09:54 Intake & Output 01/23/22 01/24/22 01/24/22 18:59 06:59 18:59 Intake Total 1650 300 Balance 1650 300 Weight 86.183 kg Intake: Intake, IV Titration 1100 300 Amount Piperacillin-Tazobactam 3 200 100 .375 gm In Sodium Chloride 0.9% 100 ml @ 25 mls/hr IVPB Q8HR [facility] Rx# :[id number] Sodium Chloride 0.9% 1, 700 000 ml @ 130 mls/hr IV . Q7H42M [facility] Rx#:[id number] metroNIDAZOLE-NS PMX 500 200 200 mg In Saline 1 100ml.bag @ 100 mls/hr IVPB Q8HR [facility] Rx#:[id number] Oral 550 Other: Voiding Method Toilet Urinal # Voids 2 1 - Labs CBC & Chem 7: 01/24/22 06:17 01/24/22 06:17 Labs: Abnormal Lab Results - Last 24 Hours (Table) 01/24/22 01/24/22 01/24/22 Range/Units 06:17 06:17 06:17 WBC 17.83 H (4.50-10.00) X 10*3/uL RBC 2.87 L (4.40-5.60) X 10*6/uL Hgb 7.2 L (13.0-17.0) g/dL Hct 23.3 L (39.6-50.0) % MCH 25.1 L (27.0-32.0) pg MCHC 30.9 L (32.0-37.0) g/dL RDW 28.2 H (11.5-14.5) % MPV 9.4 L (9.5-12.2) fL Immature Gran # 0.14 H (0.00-0.04) X 10*3/uL Neutrophils # 12.62 H (1.80-7.70) X 10*3/uL Monocytes # 2.06 H (0.20-1.00) X 10*3/uL PT 14.0 H (9.9-11.9) sec INR 1.29 H (0.90-1.11) Sodium 128 L (135-145) mmol/L Carbon Dioxide 18.1 L (20.0-27.5) mmol/L Anion Gap 8.90 L (10.00-18.00) mmol/L BUN 3.7 L (9.0-27.0) mg/dL BUN/Creatinine Ratio 5.29 L (12.00-20.00) Ratio Calcium 7.2 L (8.7-10.3) mg/dL Total Bilirubin 2.60 H (0.30-1.20) mg/dL Alkaline Phosphatase 190 H (41-126) U/L Total Protein 5.6 L (6.2-8.2) g/dL Albumin 1.7 L (3.8-4.9) g/dL Globulin 3.9 H (1.6-3.3) g/dL Albumin/Globulin Ratio 0.44 L (1.60-3.17) g/dL Microbiology - Last 24 Hours (Table) 01/21/22 20:57 Blood Culture - Preliminary Blood No Growth after 48 hours
[2022-01-25 09:18] LABS: Basophils # (A) 0.12 X 10*3/uL (0.00-0.10); Basophils % (A) 0.7 %; Eosinophils % (A) 2.4 %; HCT 23.2 % (39.6-50.0); HGB 7.2 g/dL (13.0-17.0); Immature Grans, Automated 0.8 %; Lymphocytes # (A) 2.92 X 10*3/uL (0.90-5.00); Lymphocytes % (A) 17.4 %; MCH 25.5 pg (27.0-32.0); MCV 82.3 fL (80.0-97.0); Mean Platelet Volume 9.7 fL (9.5-12.2); Monocytes # (A) 1.81 X 10*3/uL (0.20-1.00); Monocytes % (A) 10.8 %; NRBC Per 100 WBC 0 /100 WBCS (0.0-0.0); Neutrophils # (A) 11.36 X 10*3/uL (1.80-7.70); Neutrophils % (A) 67.9 %; Platelet Count 280 X 10*3/uL (140-440); RBC 2.82 X 10*6/uL (4.40-5.60); RDW 28.8 % (11.5-14.5); WBC 16.75 X 10*3/uL (4.50-10.00)
[2022-01-25] MEDS: HEPARIN SODIUM,PORCINE/PF 5,000 UNIT/0.5 ML SYRINGE SQ SCH ×3 (09:25→23:11)
[2022-01-25] MEDS: PIPERACILLIN-TAZOBACTAM 3.375 GM in SODIUM CHLORIDE 0.9% 100 ML IVPB SCH ×3 (09:25→23:13)
[2022-01-25] MEDS: metroNIDAZOLE-NS PMX 500 MG in SALINE 1 100ML.BAG IVPB SCH ×3 (09:25→23:13)
[2022-01-25 09:34] LABS: African American GFR (CKD) 126.7 (60.0-200.0); Albumin 1.6 g/dL (3.8-4.9); Albumin/Globulin Ratio 0.41 (1.60-3.17); Anion Gap 9.5 mmol/L (10.00-18.00); BUN/Creat Ratio 5.67 Ratio (12.00-20.00); Blood Urea Nitrogen 3.4 mg/dL (9.0-27.0); Calcium 7.2 mg/dL (8.7-10.3); Carbon Dioxide 17.5 mmol/L (20.0-27.5); Globulin 3.9 g/dL (1.6-3.3); Non-African American GFR(CKD) 109.3 (60.0-200.0); Potassium 3.8 mmol/L (3.5-5.5); Total Bilirubin 2.4 mg/dL (0.30-1.20); Total Protein 5.5 g/dL (6.2-8.2)
--- NOTE | 2022-01-25 12:25 | P.PN ---
Subjective Progress Note Date: 01/25/22 CHIEF COMPLAINT: Bowel perforation HISTORY OF PRESENT ILLNESS: Patient denies any abdominal pain. Denies any nausea or vomiting. He is tolerating a full liquid diet. Patient's left arm swelling has improved since IV was changed to the other arm. Afebrile. WBC did trend down from 17.83-16.75 but is still elevated. Hemoglobin 7.2 platelets 280 sodium 132 creatinine 0.6 potassium 3.8 magnesium 2.0 iron low at 33 PHYSICAL EXAM: VITAL SIGNS: Reviewed. GENERAL: Well-developed in no acute distress. HEENT: No sclera icterus. Extraocular movements grossly intact. Moist buccal mucosa. Head is atraumatic, normocephalic. ABDOMEN: Soft. Nondistended. Nontender. NEUROLOGIC: Alert and oriented. Cranial nerves II through XII grossly intact. ASSESSMENT: 1. Lower abdominal pain 2. Probable perforated diverticulitis localized to the retroperitoneum 3. Fluid in the abdomen possibly related to chronic liver disease and ascites. Patient does report history of alcohol abuse. He reports he quit drinking over a week ago. 4. Hypokalemia PLAN: -Consult infectious disease regarding leukocytosis -Continue to monitor -Continue antibiotics -Continue full liquids -Continue supportive care -Patient to follow-up outpatient with GI service regarding possible liver cirrhosis Physician Product Applications Scientist note has been reviewed by physician. Signing provider agrees with the documented findings, assessment, and plan of care. I have personally seen and examined the patient, reviewed the LEAD SYSTEMS DEVELOPER /PAs history, exam and MDM and agree with the assessment and plan as written. Based on total visit time, I have performed more than 50% of the visit. As above: Patient with persistent leukocytosis. Abdominal x-rays benign. Infectious disease evaluated patient today. We'll consider discharge tomorrow if otherwise doing well. Increase diet. Objective - Vital Signs Vital signs: Vital Signs Temp 97.8 F 01/25/22 06:58 Pulse 75 01/25/22 06:58 Resp 16 01/25/22 06:58 BP 116/64 01/25/22 06:58 Pulse Ox 97 01/25/22 06:58 Intake & Output 01/24/22 01/25/22 01/25/22 18:59 06:59 18:59 Intake Total 300 Balance 300 Intake: Intake, IV Titration 300 Amount Piperacillin-Tazobactam 3 100 .375 gm In Sodium Chloride 0.9% 100 ml @ 25 mls/hr IVPB Q8HR [facility] Rx# :[id number] metroNIDAZOLE-NS PMX 500 200 mg In Saline 1 100ml.bag @ 100 mls/hr IVPB Q8HR [facility] Rx#:[id number] Other: Voiding Method Toilet Toilet Urinal Urinal # Voids 1 3 - Labs CBC & Chem 7: 01/25/22 05:27 01/25/22 05:27 Labs: Abnormal Lab Results - Last 24 Hours (Table) 01/24/22 01/25/22 01/25/22 Range/Units 06:17 05:27 05:27 WBC 16.75 H (4.50-10.00) X 10*3/uL RBC 2.82 L (4.40-5.60) X 10*6/uL Hgb 7.2 L (13.0-17.0) g/dL Hct 23.2 L (39.6-50.0) % MCH 25.5 L (27.0-32.0) pg MCHC 31.0 L (32.0-37.0) g/dL RDW 28.8 H (11.5-14.5) % Immature Gran # 0.14 H (0.00-0.04) X 10*3/uL Neutrophils # 11.36 H (1.80-7.70) X 10*3/uL Monocytes # 1.81 H (0.20-1.00) X 10*3/uL Eosinophils # 0.40 H (0.04-0.35) X 10*3/uL Basophils # 0.12 H (0.00-0.10) X 10*3/uL Sodium 132 L (135-145) mmol/L Carbon Dioxide 17.5 L (20.0-27.5) mmol/L Anion Gap 9.50 L (10.00-18.00) mmol/L BUN 3.4 L (9.0-27.0) mg/dL BUN/Creatinine Ratio 5.67 L (12.00-20.00) Ratio Calcium 7.2 L (8.7-10.3) mg/dL Iron 33 L (65-175) ug/dL TIBC 181 L (228-460) ug/dL Transferrin 129.0 L (204.0-354.0) mg/dL Total Bilirubin 2.40 H (0.30-1.20) mg/dL Alkaline Phosphatase 169 H (41-126) U/L Total Protein 5.5 L (6.2-8.2) g/dL Albumin 1.6 L (3.8-4.9) g/dL Globulin 3.9 H (1.6-3.3) g/dL Albumin/Globulin Ratio 0.41 L (1.60-3.17) g/dL Microbiology - Last 24 Hours (Table) 01/21/22 20:57 Blood Culture - Preliminary Blood No Growth after 72 hours
--- NOTE | 2022-01-25 16:58 | P.PN ---
Subjective Progress Note Date: 01/25/22 (delayed charting seen at 0915) Principal diagnosis: abdominal pain Patient is a 61-year-old male with no known past medical history who has been admitted for diverticulitis with possible microperforation. Patient seen and examined at bedside with family present. Feeling well tolerating diet without pain. Having normal bowel movements without diarrhea or blood. General: non toxic, no distress, appears at stated age Derm: warm, dry Head: atraumatic, normocephalic, symmetric Eyes: EOMI, no lid lag, anicteric sclera Mouth: no lip lesion, mucus membranes moist Cardiovascular: S1S2 reg, no murmur, positive posterior tibial pulse bilateral, Lungs: Decreased bs bilateral, no rhonchi, no rales , no accessory muscle use Abdominal: soft, distended, non tender to palpation, no guarding, no appreciable organomegaly Ext: no gross muscle atrophy, no edema, no contractures Neuro: CN II-XI grossly intact, no focal neuro deficits Psych: Alert, oriented, appropriate affect Assessment/plan: Perforated diverticulitis -With possible abscess formation - if WBC does not decline then would consider repeat CT abd and pelvis to ensure no definitive abscess formation - surgery recs - continue with zosyn and flagyl - d/w him at length the importance of outpatient f/u for colonoscopy - will add KUB to ensure no large perforation Acute anemia -Possibly related to above, although there is no signs of active bleeding -Iron studies without definitive Fe Deficiency - follow CBC Fatty infiltration of the liver without definitive cirrhosis on imaging -Abdominal ascities could be related to acute infection -gallbladder distension on abd ultrasound -outpatient follow-up Hyponatremia with fluid overload - improving - repeat in AM Elevated Bilirubin - improving - continue to follow Leukocytosis - No cough Or shortness of breath. No difficulty with urination. No diarrhea -Gallbladder ultrasound did show possible acalculous cholecystitis -Continue with Zosyn Objective - Vital Signs Vital signs: Vital Signs Temp 97.8 F 01/25/22 06:58 Pulse 75 01/25/22 06:58 Resp 16 01/25/22 06:58 BP 116/64 01/25/22 06:58 Pulse Ox 97 01/25/22 06:58 Intake & Output 01/24/22 01/25/22 01/25/22 18:59 06:59 18:59 Intake Total 300 Balance 300 Intake: Intake, IV Titration 300 Amount Piperacillin-Tazobactam 3 100 .375 gm In Sodium Chloride 0.9% 100 ml @ 25 mls/hr IVPB Q8HR [facility] Rx# :[id number] metroNIDAZOLE-NS PMX 500 200 mg In Saline 1 100ml.bag @ 100 mls/hr IVPB Q8HR [facility] Rx#:[id number] Other: Voiding Method Toilet Toilet Urinal Urinal # Voids 1 3 3 - Labs CBC & Chem 7: 01/25/22 05:27 01/25/22 05:27 Labs: Abnormal Lab Results - Last 24 Hours (Table) 01/24/22 01/25/22 01/25/22 Range/Units 06:17 05:27 05:27 WBC 16.75 H (4.50-10.00) X 10*3/uL RBC 2.82 L (4.40-5.60) X 10*6/uL Hgb 7.2 L (13.0-17.0) g/dL Hct 23.2 L (39.6-50.0) % MCH 25.5 L (27.0-32.0) pg MCHC 31.0 L (32.0-37.0) g/dL RDW 28.8 H (11.5-14.5) % Immature Gran # 0.14 H (0.00-0.04) X 10*3/uL Neutrophils # 11.36 H (1.80-7.70) X 10*3/uL Monocytes # 1.81 H (0.20-1.00) X 10*3/uL Eosinophils # 0.40 H (0.04-0.35) X 10*3/uL Basophils # 0.12 H (0.00-0.10) X 10*3/uL Sodium 132 L (135-145) mmol/L Carbon Dioxide 17.5 L (20.0-27.5) mmol/L Anion Gap 9.50 L (10.00-18.00) mmol/L BUN 3.4 L (9.0-27.0) mg/dL BUN/Creatinine Ratio 5.67 L (12.00-20.00) Ratio Calcium 7.2 L (8.7-10.3) mg/dL Iron 33 L (65-175) ug/dL TIBC 181 L (228-460) ug/dL Transferrin 129.0 L (204.0-354.0) mg/dL Total Bilirubin 2.40 H (0.30-1.20) mg/dL Alkaline Phosphatase 169 H (41-126) U/L Total Protein 5.5 L (6.2-8.2) g/dL Albumin 1.6 L (3.8-4.9) g/dL Globulin 3.9 H (1.6-3.3) g/dL Albumin/Globulin Ratio 0.41 L (1.60-3.17) g/dL Microbiology - Last 24 Hours (Table) 01/21/22 20:57 Blood Culture - Preliminary Blood No Growth after 72 hours
--- NOTE | 2022-01-25 17:41 | XR ---
EXAMINATION TYPE: XR abdomen 2V DATE OF EXAM: 01/25/2022 COMPARISON: NONE HISTORY: Leukocytosis TECHNIQUE: 3 views supine and upright FINDINGS: There is no sign of intestinal obstruction or pneumoperitoneum. There are few gas-filled sm all bowel loops in the left abdomen that could be mild ileus. Lung bases are clear. There are no path ologic calcifications over the kidneys. IMPRESSION: Possible mild small bowel ileus. No free air.
--- NOTE | 2022-01-25 23:36 | P.CONS ---
History of Present Illness - Reason for Consult Consult date: 01/25/22 Leukocytosis Requesting physician: Colt Ho - Chief Complaint Abdominal pain 2 week - History of Present Illness Patient is 61-year-old male presented to hospital 4 days ago for evaluation of abdominal pain that apparently has been going on for 2 weeks before presentation to the hospital patient be complaining of pain mostly in her lower abdominal area and described the pain to be more of a sharp colicky about 6-8 out of 10 and no radiation patient did have a nausea vomiting and subsequently diarrhea but denies having any blood or mucus in the stool patient diarrhea has subsequently resolved patient on presentation to the hospital was afebrile he did have a low-grade fever of 99.7 on 01/22/2022, no tachycardia patient did have a white count of 18.5 on admission and also have a drop in hemoglobin to 6.3 on 01/22/2022 white count is currently 16.75 with a left shift did have a normal creatinine alkaline phosphatase elevated urine negative Covid testing was negative patient did have blood culture on admission that has been negative patient did have a CT of abdominal pelvis abdominal ascites extraluminal air bubbles in the left posterior abdominal with a complex density suggestive of developing abscess patient was admitted to the general surgical team and has recommended continued observation with antibiotic treatment however with persistent elevated white count infectious disease was consulted for further management, patient also have a ultrasound abdomen no gallstones or dilated duct Review of Systems Positive point has been mentioned in the HPI rest of the systems are negative Past Medical History Past Medical History: No Reported History Additional Past Medical History / Comment(s): Diverticulitis History of Any Multi-Drug Resistant Organisms: None Reported Past Surgical History: No Surgical Hx Reported Past Psychological History: No Psychological Hx Reported Smoking Status: Never smoker Past Alcohol Use History: Occasional Past Drug Use History: Marijuana Medications and Allergies Home Medications Medication Instructions Recorded Confirmed Type Ibuprofen [Motrin] 600 mg PO Q8HR PRN #30 tab 02/12/18 01/21/22 Rx Acetaminophen [Tylenol] 1,000 mg PO Q4-6H PRN 01/21/22 01/21/22 History Allergies Allergy/AdvReac Type Severity Reaction Status Date / Time No Known Allergies Allergy Verified 01/21/22 20:50 Physical Exam Vitals: Vital Signs Temp Pulse Resp BP Pulse Ox 01/25/22 06:58 97.8 F 75 16 116/64 97 04/13/22 02:00 98.4 F 78 18 118/70 99 01/24/22 19:25 98.5 F 77 16 114/67 99 01/24/22 13:51 98.3 F 81 137/74 Intake and Output 01/24/22 01/25/22 01/25/22 22:59 06:59 14:59 Intake Total 300 Balance 300 Intake: Intake, IV Titration 300 Amount Piperacillin-Tazobactam 3 100 .375 gm In Sodium Chloride 0.9% 100 ml @ 25 mls/hr IVPB Q8HR [facility] Rx# :[id number] metroNIDAZOLE-NS PMX 500 200 mg In Saline 1 100ml.bag @ 100 mls/hr IVPB Q8HR [facility] Rx#:[id number] Other: Voiding Method Toilet Urinal # Voids 3 GENERAL DESCRIPTION: Middle-aged male lying in bed, no distress. No tachypnea or accessory muscle of respiration use. HEENT: Shows Pallor , no scleral icterus. Oral mucous membrane is dry. No pharyngeal erythema or thrush NECK: Trachea central, no thyromegaly. LUNGS: Unlabored breathing. Clear to auscultation anteriorly. No wheeze or crackle. HEART: S1, S2, regular rate and rhythm. No loud murmur ABDOMEN: Soft, abdominal distention no significant tenderness or guarding EXTREMITIES: No edema of feet. SKIN: No rash, no masses palpable. NEUROLOGICAL: The patient is awake, alert, oriented x3, mood and affect normal. Results CBC & Chem 7: 01/25/22 05:27 01/25/22 05:27 Labs: Abnormal Lab Results - Last 24 Hours (Table) 01/24/22 01/25/22 01/25/22 Range/Units 06:17 05:27 05:27 WBC 16.75 H (4.50-10.00) X 10*3/uL RBC 2.82 L (4.40-5.60) X 10*6/uL Hgb 7.2 L (13.0-17.0) g/dL Hct 23.2 L (39.6-50.0) % MCH 25.5 L (27.0-32.0) pg MCHC 31.0 L (32.0-37.0) g/dL RDW 28.8 H (11.5-14.5) % Immature Gran # 0.14 H (0.00-0.04) X 10*3/uL Neutrophils # 11.36 H (1.80-7.70) X 10*3/uL Monocytes # 1.81 H (0.20-1.00) X 10*3/uL Eosinophils # 0.40 H (0.04-0.35) X 10*3/uL Basophils # 0.12 H (0.00-0.10) X 10*3/uL Sodium 132 L (135-145) mmol/L Carbon Dioxide 17.5 L (20.0-27.5) mmol/L Anion Gap 9.50 L (10.00-18.00) mmol/L BUN 3.4 L (9.0-27.0) mg/dL BUN/Creatinine Ratio 5.67 L (12.00-20.00) Ratio Calcium 7.2 L (8.7-10.3) mg/dL Iron 33 L (65-175) ug/dL TIBC 181 L (228-460) ug/dL Transferrin 129.0 L (204.0-354.0) mg/dL Total Bilirubin 2.40 H (0.30-1.20) mg/dL Alkaline Phosphatase 169 H (41-126) U/L Total Protein 5.5 L (6.2-8.2) g/dL Albumin 1.6 L (3.8-4.9) g/dL Globulin 3.9 H (1.6-3.3) g/dL Albumin/Globulin Ratio 0.41 L (1.60-3.17) g/dL Microbiology - Last 24 Hours (Table) 01/21/22 20:57 Blood Culture - Preliminary Blood No Growth after 72 hours Assessment and Plan (1) Leukocytosis Current Visit: Yes Status: Acute Code(s): D72.829 - ELEVATED WHITE BLOOD CELL COUNT, UNSPECIFIED SNOMED Code(s): 471489459 Plan: 1patient with significantly with white count in this patient presented to hospital with abdominal pain and distention secondary to possible perforated diverticulitis with a peridiverticular abscess has been treated medically however the right foot has been persistently elevated and concern for possible worsening of his diverticular abscess that may need surgical drainage is currently no other obvious focus of infection. 2we will repeat his CT abdominal pelvis with oral contrast in the a.m. 3continue with Zosyn at this point. 4we will repeat a blood culture and check his inflammatory markers. We will follow on clinical condition and cultures to further adjust medication if needed Thank you for this consultation will follow this patient along with you Time with Patient: Greater than 30
[2022-01-26 04:56] LABS: Anisocytosis Moderate; HCT 28.8 % (39.0-53.0); HGB 8.7 gm/dL (13.0-17.5); Hypochromasia Marked; MCH 26.6 pg (25.0-35.0); MCHC 30.1 g/dL (31.0-37.0); Macrocytosis Slight; Mean Platelet Volume 7.2; Microcytosis Slight; Platelet Count 344 k/uL (150-450); RBC 3.26 m/uL (4.30-5.90); RDW 23.8 % (11.5-15.5); WBC 16.4 k/uL (3.8-10.6)
[2022-01-26 04:58] LABS: MCV 88.2 fL (80.0-100.0)
[2022-01-26 05:14] LABS: ALT 12 U/L (4-49); AST 40 U/L (17-59); African American GFR (CKD) >90 (>60 ml/min/1.73 sqM); Albumin 1.9 g/dL (3.5-5.0); Albumin/Globulin Ratio 0.4; Alkaline Phosphatase 194 U/L (38-126); Anion Gap 5 mmol/L; Blood Urea Nitrogen 2 mg/dL (9-20); C Reactive Protein 2.9 mg/dL (<1.0); Calcium 7.2 mg/dL (8.4-10.2); Carbon Dioxide 18 mmol/L (22-30); Chloride 107 mmol/L (98-107); Globulin 4.3 g/dL; Glucose 98 mg/dL (74-99); Non-African American GFR(CKD) >90 (>60 ml/min/1.73 sqM); Potassium 3.7 mmol/L (3.5-5.1); Sodium 130 mmol/L (137-145); Total Bilirubin 2.3 mg/dL (0.2-1.3); Total Protein 6.2 g/dL (6.3-8.2)
[2022-01-26] MEDS: IOPAMIDOL CONTRAST (ORAL USE) VIAL PO PRN ×2 (06:25→07:19)
[2022-01-26] MEDS: PIPERACILLIN-TAZOBACTAM 3.375 GM in SODIUM CHLORIDE 0.9% 100 ML IVPB SCH ×3 (07:18→23:41)
--- NOTE | 2022-01-26 09:19 | CT ---
EXAMINATION TYPE: CT abdomen pelvis w con DATE OF EXAM: 01/26/2022 COMPARISON: CT dated 01/21/2022 HISTORY: Leukocytosis and Intra-abdominal abscess CT DLP: 1966 mGycm Automated exposure control for dose reduction was used. TECHNIQUE: Helical acquisition of images was performed from the lung bases through the pelvis. CONTRAST: Performed with Oral Contrast and with IV Contrast, patient injected with 100 mL of Isovue 300. FINDINGS: LUNG BASES: Small bilateral pleural effusions and minimal basal pulmonary atelectasis. LIVER/GB: Slightly heterogeneous hepatic parenchyma with nodular outline, please correlate with liver function tests and hepatic viral serology. The gallbladder is not completely distended. PANCREAS: No significant abnormality is seen. SPLEEN: No significant abnormality is seen. ADRENALS: No significant abnormality is seen. KIDNEYS: No significant abnormality is seen. RETROPERITONEAL ADENOPATHY: None visualized REPRODUCTIVE ORGANS: No significant abnormality is seen URINARY BLADDER: No significant abnormality is seen. PELVIC ADENOPATHY: No pathologically enlarged or suspicious lymph nodes. OSSEOUS STRUCTURES: No aggressive bone lesion. BOWEL: Unremarkable nondistended stomach, duodenum and small bowel. Persistent signs of contained pe rforation of the sigmoid colon and descending colon. Multiple pockets of extraluminal air and soft ti ssue thickening/fluid are still appreciated on the left side of the retroperitoneum. The more superio r one is seen extending from the descending colon to the third part duodenum measuring 7.6 x 1.8 cm c ompared to 7.6 x 2 cm previously. There is almost no fluid seen at this collection with obvious extra vasation of the oral contrast from the descending colon into the lateral aspect of the collection, be st appreciated in image #62, series 202. A more inferior collection is seen extending from the inferi or aspect of the descending colon as well as the adjacent small bowel demonstrating air and fluid yet without definite marginal enhancement likely representing a developing abscess and measuring 3 x 6.7 cm compared to 3.8 x 7.2 cm previously. A third similar irregular collection containing air is seen extending from the proximal portion of the sigmoid colon and passing superiorly extending for about 8 cm and demonstrating less fluid within. Slightly larger fluid along the left side of the pelvis jenaro uring 3.7 cm compared to 2.8 cm previously without marginal enhancement. This could also represent a developing abscess. No free peritoneal air. No evidence of bowel or colonic obstruction. Flow of the oral contrast down to the rectum. Wall thickening of the colon without which may suggest colitis. Nor mal appendix. OTHER: Unremarkable abdominal aorta and IVC. Moderate to large amount of free abdominal and pelvic fl uid. Mesenteric fat stranding, peritonitis cannot be excluded. IMPRESSION: Multiple pockets of fluid and air are seen in the left side of the abdomen and in the pelvis as detai led above likely representing sequela of perforated colon possibly secondary to the diverticulitis. T here is obvious communication with the descending colon of the most superior collection as described above. They could progressed to saul abscess formation or fistulous communication. Possible associat ed peritonitis. Recommend surgical consultation if not already performed. Other interval changes and incidental findings as detailed above.
[2022-01-26] MEDS: HEPARIN SODIUM,PORCINE/PF 5,000 UNIT/0.5 ML SYRINGE SQ SCH ×3 (10:03→23:41)
[2022-01-26] MEDS: metroNIDAZOLE-NS PMX 500 MG in SALINE 1 100ML.BAG IVPB SCH ×3 (10:03→23:41)
--- NOTE | 2022-01-26 13:55 | P.PN ---
Subjective Progress Note Date: 01/26/22 CHIEF COMPLAINT: Bowel perforation HISTORY OF PRESENT ILLNESS: Patient denies any abdominal pain. Denies any nausea or vomiting. He is tolerating Regular diet. Patient seen evaluated by infectious disease. They ordered a computed tomography scan of the abdomen. Computed tomography scan abdomen and pelvis shows multiple pockets of fluid and air seen in the left side of the abdomen and in the pelvis likely representing sequelae of perforated colon possibly secondary to the diverticulitis. There is obvious communication with the descending colon and most of the superior collection as described above. They could progress to saul abscess formation or fistula communication. Possible associated peritonitis. Afebrile. WBC is 16.4 hemoglobin 8.7 platelets 344. PHYSICAL EXAM: VITAL SIGNS: Reviewed. GENERAL: Well-developed in no acute distress. HEENT: No sclera icterus. Extraocular movements grossly intact. Moist buccal mucosa. Head is atraumatic, normocephalic. ABDOMEN: Soft. Nondistended. Nontender. NEUROLOGIC: Alert and oriented. Cranial nerves II through XII grossly intact. ASSESSMENT: 1. Lower abdominal pain 2. Probable perforated diverticulitis localized to the retroperitoneum 3. Fluid in the abdomen possibly related to chronic liver disease and ascites. Patient does report history of alcohol abuse. He reports he quit drinking over a week ago. 4. Hypokalemia 5. Leukocytosis PLAN: -Further recommendations forthcoming per surgeon -Continue to monitor -Continue antibiotics -Continue full liquids -Continue supportive care -Patient to follow-up outpatient with GI service regarding possible liver cirrhosis Physician Auth Specialist note has been reviewed by physician. Signing provider agrees with the documented findings, assessment, and plan of care. I have personally seen and examined the patient, reviewed the PRODUCT DEVELOPMENT CHEMIST /PAs history, exam and MDM and agree with the assessment and plan as written. Based on total visit time, I have performed more than 50% of the visit. As above: patient says he feels bloated today. Repeat CAT scan shows no improvement. Discussed options with patient and infectious disease. Will proceed with laparoscopic drainage of abdominal abscess with drain placement, possible conversion to laparotomy, possible colectomy, possible colostomy. Risks of bleeding, infection, peritoneal fluid leak, recurrent abscess ,recurrent peritonitis, hernia, ostomy related complications, respiratory or cardiac complications, and discussed. He understands and wishes to proceed. Objective - Vital Signs Vital signs: Vital Signs Temp 97.8 F 01/26/22 07:35 Pulse 73 01/26/22 07:35 Resp 18 01/26/22 07:35 BP 111/67 01/26/22 07:35 Pulse Ox 99 01/26/22 07:35 Intake & Output 01/25/22 01/26/22 01/26/22 18:59 06:59 18:59 Other: Voiding Method Toilet Urinal # Voids 3 - Labs CBC & Chem 7: 01/26/22 04:40 01/26/22 04:40 Labs: Abnormal Lab Results - Last 24 Hours (Table) 01/26/22 01/26/22 Range/Units 04:40 04:40 WBC 16.4 H (3.8-10.6) k/uL RBC 3.26 L (4.30-5.90) m/uL Hgb 8.7 L (13.0-17.5) gm/dL Hct 28.8 L (39.0-53.0) % MCHC 30.1 L (31.0-37.0) g/dL RDW 23.8 H (11.5-15.5) % Sodium 130 L (137-145) mmol/L Carbon Dioxide 18 L (22-30) mmol/L BUN 2 L (9-20) mg/dL Creatinine 0.59 L (0.66-1.25) mg/dL Calcium 7.2 L (8.4-10.2) mg/dL Total Bilirubin 2.3 H (0.2-1.3) mg/dL Alkaline Phosphatase 194 H (38-126) U/L C-Reactive Protein 2.9 H (<1.0) mg/dL Total Protein 6.2 L (6.3-8.2) g/dL Albumin 1.9 L (3.5-5.0) g/dL Microbiology - Last 24 Hours (Table) 01/21/22 20:57 Blood Culture - Preliminary Blood No Growth after 96 hours
--- NOTE | 2022-01-26 14:09 | CDI ---
Documentation Clarification Form Date: 01/26/2022 01:57:48 PM From: Maggie Montana RN CCDS Admit Date: 01/21/2022 08:06:00 PM Patient Name: Scooter Lyons Visit Number: [id number] Discharge Date: ATTENTION: The Clinical Documentation Specialists (CDI) and [facility] Coding Staff appreciate your assistance in clarifying documentation. Please respond to the clarification below the line at the bottom and electronically sign. The CDI & [facility] Coding staff will review the response and follow-up if needed. Please note: Queries are made part of the Legal Health Record. If you have any questions, please contact the author of this message via ITS. Dr. Colt Ho The patient presented with the following clinical indicators. Additional clarification regarding the etiology/cause of the clinical indicators is requested. History/Risk Factors: 61-year-old male presents to the ED with lower abdominal pain, nausea, vomiting, diarrhea and shortness of breath. Medical History: Diverticulitis. 01/21, ED Note. Clinical Indicators: WBC:01/21 Lactic acid: 01/21 2.4 Neutrophils: 01/21 15.0 Blood cultures: 01/21 No growth after 96 hours Vitals signs: 01/21 B/P 146/78; HR 102; Temp 97.1 F Oral; RR 18; SpO2 100 ra Treatment: ID Consult: 01/25: Possible perforated diverticulitis w/ luis diverticular abscess. Antibiotics: 01/21 Metronidazole 500mg IVPB x 1; 01/22 current Metronidazole 500mg IVPB Q8HR; 01/21 Piperacillin 3.375gm IVPB X 1; 01/22 to current Piperacillin 3.375mg IVPB Q8HR IV Bolus: 01/21 0.9NS 1L bolus; 01/22 0.9NS 1L bolus In your professional opinion, please clarify if these findings signify one of the following conditions: [ x ] Sepsis POA [ ] Sepsis ruled out [ ] Other, please specify [ ] Unable to determine SIRS Criteria: 2 or more of the following may indicate SIRS -Temperature < 96.8F (36C) or > 101.0F (38.3C) -Heart Rate > 90 bpm -Respiratory Rate > 20 breaths/min or PaCO2 < 32 mmHg -White Blood Cell Count > 12,000 or < 4,000 cells/mm3 or > 10% bands (Template Last Reviewed: November 2020) MTDD
--- NOTE | 2022-01-26 19:44 | P.PN ---
Subjective Progress Note Date: 01/26/22 (delayed charting seen at 1030) Principal diagnosis: abdominal pain Patient is a 61-year-old male with no known past medical history who has been admitted for diverticulitis with possible microperforation. Patient seen and examined at bedside with family present. Feeling okay, denies any pain, no nausea, normal BM. D/W pt results of CT scan and need to speak with surgery regarding possible need fr surgical intervention General: non toxic, no distress, appears at stated age Derm: warm, dry Head: atraumatic, normocephalic, symmetric Eyes: EOMI, no lid lag, anicteric sclera Mouth: no lip lesion, mucus membranes moist Cardiovascular: S1S2 reg, no murmur, positive posterior tibial pulse bilateral, Lungs: Decreased bs bilateral, no rhonchi, no rales , no accessory muscle use Abdominal: soft, distended, non tender to palpation, no guarding, no appreciable organomegaly Ext: no gross muscle atrophy, no edema, no contractures Neuro: CN II-XI grossly intact, no focal neuro deficits Psych: Alert, oriented, appropriate affect Assessment/plan: Perforated diverticulitis -With abscess and multiple fluid collections - surgery recs: ex lap in AM possible open - continue with zosyn and flagyl - d/w him at length the importance of outpatient f/u for colonoscopy - will add KUB to ensure no large perforation Acute anemia -Possibly related to above, although there is no signs of active bleeding -Iron studies without definitive Fe Deficiency but likely, start oral iron in AM - follow CBC Fatty infiltration of the liver without definitive cirrhosis on imaging -Abdominal ascities could be related to acute infection -gallbladder distension on abd ultrasound -outpatient follow-up Hyponatremia with fluid overload, stbale - improving - repeat in AM Elevated Bilirubin - improving - continue to follow Active Medications Generic Name Dose Route Start Last Admin Trade Name Freq PRN Reason Stop Dose Admin Acetaminophen 650 mg 01/22/22 20:28 01/22/22 20:34 Acetaminophen Tab 325 Mg Tab PO 650 mg Q6HR PRN Administration Fever and/ or mild Pain Heparin Sodium (Porcine) 5,000 unit 01/22/22 00:00 01/26/22 16:17 Heparin Sodium,Porcine/Pf 5,000 Unit/0.5 Ml Syringe SQ 5,000 unit Q8HR LETITIA Administration Hydromorphone HCl 0.5 mg 01/21/22 19:47 Hydromorphone 0.5 Mg/0.5 Ml Syringe IVP Q3HR PRN Moderate Pain Piperacillin Sod/Tazobactam 100 mls @ 25 mls/hr 01/22/22 00:00 01/26/22 16:21 Sod 3.375 gm/ Sodium Chloride IVPB 25 mls/hr Q8HR LETITIA Administration Protocol Metronidazole 500 mg/ IV 100 mls @ 100 mls/hr 01/22/22 16:00 01/26/22 16:17 Solution IVPB 100 mls/hr Q8HR LETITIA Administration Protocol Naloxone HCl 0.2 mg 01/21/22 19:47 Naloxone 0.4 Mg/Ml 1 Ml Vial IV Q2M PRN Opioid Reversal Ondansetron HCl 4 mg 01/21/22 19:47 Ondansetron 4 Mg/2 Ml Vial IVP Q8HR PRN Nausea And Vomiting Objective - Vital Signs Vital signs: Vital Signs Temp 98.0 F 01/26/22 14:58 Pulse 86 01/26/22 14:58 Resp 19 01/26/22 14:58 BP 111/64 01/26/22 14:58 Pulse Ox 99 01/26/22 14:58 Intake & Output 01/26/22 01/26/22 01/27/22 06:59 18:59 06:59 Weight 86.183 kg Other: Voiding Method Toilet Urinal # Voids 2 - Labs CBC & Chem 7: 01/26/22 04:40 01/26/22 04:40 Labs: Abnormal Lab Results - Last 24 Hours (Table) 01/26/22 01/26/22 Range/Units 04:40 04:40 WBC 16.4 H (3.8-10.6) k/uL RBC 3.26 L (4.30-5.90) m/uL Hgb 8.7 L (13.0-17.5) gm/dL Hct 28.8 L (39.0-53.0) % MCHC 30.1 L (31.0-37.0) g/dL RDW 23.8 H (11.5-15.5) % Sodium 130 L (137-145) mmol/L Carbon Dioxide 18 L (22-30) mmol/L BUN 2 L (9-20) mg/dL Creatinine 0.59 L (0.66-1.25) mg/dL Calcium 7.2 L (8.4-10.2) mg/dL Total Bilirubin 2.3 H (0.2-1.3) mg/dL Alkaline Phosphatase 194 H (38-126) U/L C-Reactive Protein 2.9 H (<1.0) mg/dL Total Protein 6.2 L (6.3-8.2) g/dL Albumin 1.9 L (3.5-5.0) g/dL Microbiology - Last 24 Hours (Table) 01/21/22 20:57 Blood Culture - Preliminary Blood No Growth after 96 hours
--- NOTE | 2022-01-26 23:47 | P.PN ---
Subjective Progress Note Date: 01/26/22 Principal diagnosis: Leukocytosis Patient is 61-year-old male presented to the hospital with a two-week history of abdominal pain in this patient's CT of abdominal problems has been suspicious for perforated diverticulitis with an abscess has been treated conservatively however did have persistent elevated white count with a repeat CT did shows slight worsening of the abscess. On today's evaluation that is 01/26/2022, the patient denies having any fever or any chills patient is breathing comfortably patient abdominal pain is currently controlled, did have some distention no nausea no vomiting or diarrhea no chest pain shortness of breath or cough Objective - Vital Signs Vital signs: Vital Signs Temp 97.8 F 01/26/22 07:35 Pulse 73 01/26/22 07:35 Resp 18 01/26/22 07:35 BP 111/67 01/26/22 07:35 Pulse Ox 99 01/26/22 07:35 Intake & Output 01/25/22 01/26/22 01/26/22 18:59 06:59 18:59 Other: Voiding Method Toilet Urinal # Voids 3 - Exam GENERAL DESCRIPTION: Middle-aged male lying in bed in no distress RESPIRATORY SYSTEM: Unlabored breathing , decreased breath sounds at bases HEART: S1 S2 regular rate and rhythm , ABDOMEN: Soft , distention or no significant tenderness EXTREMITIES: No edema feet - Labs CBC & Chem 7: 01/26/22 04:40 01/26/22 04:40 Labs: Abnormal Lab Results - Last 24 Hours (Table) 01/26/22 01/26/22 Range/Units 04:40 04:40 WBC 16.4 H (3.8-10.6) k/uL RBC 3.26 L (4.30-5.90) m/uL Hgb 8.7 L (13.0-17.5) gm/dL Hct 28.8 L (39.0-53.0) % MCHC 30.1 L (31.0-37.0) g/dL RDW 23.8 H (11.5-15.5) % Sodium 130 L (137-145) mmol/L Carbon Dioxide 18 L (22-30) mmol/L BUN 2 L (9-20) mg/dL Creatinine 0.59 L (0.66-1.25) mg/dL Calcium 7.2 L (8.4-10.2) mg/dL Total Bilirubin 2.3 H (0.2-1.3) mg/dL Alkaline Phosphatase 194 H (38-126) U/L C-Reactive Protein 2.9 H (<1.0) mg/dL Total Protein 6.2 L (6.3-8.2) g/dL Albumin 1.9 L (3.5-5.0) g/dL Microbiology - Last 24 Hours (Table) 01/21/22 20:57 Blood Culture - Preliminary Blood No Growth after 96 hours Assessment and Plan (1) Leukocytosis Current Visit: Yes Status: Acute Code(s): D72.829 - ELEVATED WHITE BLOOD CELL COUNT, UNSPECIFIED SNOMED Code(s): 372385575 Plan: 1patient with significantly with white count in this patient presented to hospital with abdominal pain and distention secondary to possible perforated diverticulitis with a peridiverticular abscess has been treated medically however the patient did have persistently elevated and concern for possible worsening of his diverticular abscess that may need surgical drainage is currently no other obvious focus of infection. [address] abdominal pelvis did show slight worsening of the abscess, discussed with the surgeon on the phone with a possible option of laparoscopic versus open drainage as a high risk of antibiotic failure 3patient to continue with Zosyn however will recommend culture both aerobic and anaerobic at the time surgical drainage Time with Patient: Less than 30
[2022-01-27] MEDS: HEPARIN SODIUM,PORCINE/PF 5,000 UNIT/0.5 ML SYRINGE SQ SCH ×2 (09:09→17:24)
[2022-01-27] MEDS: PIPERACILLIN-TAZOBACTAM 3.375 GM in SODIUM CHLORIDE 0.9% 100 ML IVPB SCH ×2 (09:16→17:24)
[2022-01-27] MEDS: metroNIDAZOLE-NS PMX 500 MG in SALINE 1 100ML.BAG IVPB SCH ×2 (09:30→17:23)
--- NOTE | 2022-01-27 10:15 | P.PN ---
Subjective Progress Note Date: 01/27/22 Principal diagnosis: Diverticulitis I was contacted by the hospitalist this morning that the patient had changed his mind regarding surgery today. Spoke with the patient at length. Patient had multiple episodes of flatus and good movement overnight. Feels less bloated. Would like to hold off on surgery at this time. Patient has no pain currently. He is afebrile. Labs pending. Objective - Vital Signs Vital signs: Vital Signs Temp 98.4 F 01/27/22 08:07 Pulse 88 01/27/22 08:07 Resp 18 01/27/22 08:07 BP 128/73 01/27/22 08:07 Pulse Ox 99 01/27/22 08:07 Intake & Output 01/26/22 01/27/22 01/27/22 18:59 06:59 18:59 Weight 86.183 kg Other: Voiding Method Toilet Toilet Toilet Urinal Urinal Urinal # Voids 2 1 1 # Bowel Movements 1 - Exam Abdomen: Soft, mild distention, no appreciable tenderness - Labs CBC & Chem 7: 01/26/22 04:40 01/26/22 04:40 Labs: Microbiology - Last 24 Hours (Table) 01/26/22 04:40 Blood Culture - Preliminary Blood No Growth after 24 hours 01/21/22 20:57 Blood Culture - Preliminary Blood No Growth after 120 hours Assessment and Plan (1) Bowel perforation Narrative/Plan: 61-year-old male with bowel perforation thought to be related to sigmoid d iverticulitis. Patient yesterday was agreeable to laparoscopic drainage, possible laparotomy however this morning he has changed his mind. Alternative option of continued IV antibiotics with plans for discharge on IV antibiotics is with the patient would like to do at this time. I discussed his case with Dr. Vogt. Will ask for a PICC line to be placed at this time. Also called the patient's by phone. Notified her of the patient's decision. She agrees with him at this time. All questions answered. Current Visit: Yes Status: Acute Code(s): K63.1 - PERFORATION OF INTESTINE (NONTRAUMATIC) SNOMED Code(s): 12284509
--- NOTE | 2022-01-27 11:05 | P.PN ---
Subjective Progress Note Date: 01/27/22 (delayed charting seen at 0930) Principal diagnosis: abdominal pain Patient is a 61-year-old male with no known past medical history who has been admitted for diverticulitis with possible microperforation. Patient seen and examined at bedside with family present. States that he passed a lot of gas yesterday and had 2 normal BM- no blood, Still not abdominal pain, no nausea, no vomiting. General: non toxic, no distress, appears at stated age Derm: warm, dry Head: atraumatic, normocephalic, symmetric Eyes: EOMI, no lid lag, anicteric sclera Mouth: no lip lesion, mucus membranes dry Cardiovascular: S1S2 irreg, no murmur, positive posterior tibial pulse bilateral, Lungs: Decreased bs bilateral, no rhonchi, no rales , no accessory muscle use Abdominal: soft, distended, non tender to palpation, no guarding, no appreciable organomegaly Ext: no gross muscle atrophy, no edema, no contractures Neuro: CN II-XI grossly intact, no focal neuro deficits Psych: Alert, oriented, appropriate affect Assessment/plan: Perforated diverticulitis -With abscess and multiple fluid collections - surgery recs appreciated, to OR today - continue with zosyn and flagyl - d/w him at length the importance of outpatient f/u for colonoscopy - will add KUB to ensure no large perforation Acute anemia -Possibly related to above, although there is no signs of active bleeding -Iron studies without definitive Fe Deficiency but likely, start oral iron once eating in AM - follow CBC Fatty infiltration of the liver without definitive cirrhosis on imaging -Abdominal ascities could be related to acute infection -gallbladder distension on abd ultrasound -outpatient follow-up Hyponatremia with fluid overload, stable - improving - repeat in AM Elevated Bilirubin - improving - continue to follow Labs pending at this time of my evaluation Active Medications Generic Name Dose Route Start Last Admin Trade Name Freq PRN Reason Stop Dose Admin Acetaminophen 650 mg 01/22/22 20:28 01/22/22 20:34 Acetaminophen Tab 325 Mg Tab PO 650 mg Q6HR PRN Administration Fever and/ or mild Pain Heparin Sodium (Porcine) 5,000 unit 01/22/22 00:00 01/27/22 09:09 Heparin Sodium,Porcine/Pf 5,000 Unit/0.5 Ml Syringe SQ Not Given Q8HR LETITIA Hydromorphone HCl 0.5 mg 01/21/22 19:47 Hydromorphone 0.5 Mg/0.5 Ml Syringe IVP Q3HR PRN Moderate Pain Piperacillin Sod/Tazobactam 100 mls @ 25 mls/hr 01/22/22 00:00 01/27/22 09:16 Sod 3.375 gm/ Sodium Chloride IVPB 25 mls/hr Q8HR LETITIA Administration Protocol Metronidazole 500 mg/ IV 100 mls @ 100 mls/hr 01/22/22 16:00 01/27/22 09:30 Solution IVPB 100 mls/hr Q8HR LETITIA Administration Protocol Naloxone HCl 0.2 mg 01/21/22 19:47 Naloxone 0.4 Mg/Ml 1 Ml Vial IV Q2M PRN Opioid Reversal Ondansetron HCl 4 mg 01/21/22 19:47 Ondansetron 4 Mg/2 Ml Vial IVP Q8HR PRN Nausea And Vomiting Objective - Vital Signs Vital signs: Vital Signs Temp 98.4 F 01/27/22 08:07 Pulse 88 01/27/22 08:07 Resp 18 01/27/22 08:07 BP 128/73 01/27/22 08:07 Pulse Ox 99 01/27/22 08:07 Intake & Output 01/26/22 01/27/22 01/27/22 18:59 06:59 18:59 Weight 86.183 kg Other: Voiding Method Toilet Toilet Toilet Urinal Urinal Urinal # Voids 2 1 1 # Bowel Movements 1 - Labs CBC & Chem 7: 01/26/22 04:40 01/26/22 04:40 Labs: Microbiology - Last 24 Hours (Table) 01/26/22 04:40 Blood Culture - Preliminary Blood No Growth after 24 hours 01/21/22 20:57 Blood Culture - Preliminary Blood No Growth after 120 hours
[2022-01-27] MEDS ORDERED: SODIUM CHLORIDE 0.9% 1,000 ML IV SCH (11:15)
--- NOTE | 2022-01-27 13:57 | IR ---
PICC LINE PLACEMENT: HISTORY: Infection requiring long-term antibiotic therapy PROCEDURE: Ultrasound and fluoroscopic guidance of PICC line placement. COMPLICATIONS: None ANESTHESIA: 1. 1% Lidocaine locally. FINDINGS/TECHNIQUE: The procedure was explained to the patient. The risks, complications, benefits and alternatives were discussed and any questions were answered. Informed consent was obtained. The patient was placed supine on the fluoroscopic table and prepped and draped in the usual sterile fash ion. Utilizing a 21 gauge needle and sonographic and fluoroscopic guidance, access in the left basi lic vein was achieved and there is placement of a 0.018 guidewire. The vein is patent. A 4-F sheath was placed over the guidewire. The guidewire and dilator were removed and a 4-F. PICC line was plac ed through the sheath with the tip at the level of the SVC. The sheath was removed, the catheter was flushed and sutured into position. The patient was stable throughout the procedure and remained sta ble upon discharge from the Department of Radiology. The vein puncture was patent under ultrasound. A roman scale image was obtained to document patency of the vein punctured. All elements of the maximal barrier technique were utilized. FLUOROSCOPY TIME: 0.1 minutes and one image submitted IMPRESSION: Successful PICC line placement under ultrasound and fluoroscopic guidance.
--- NOTE | 2022-01-27 16:32 | P.PN ---
Subjective Progress Note Date: 01/27/22 Principal diagnosis: Leukocytosis Patient is 61-year-old male presented to the hospital with a two-week history of abdominal pain in this patient's CT of abdominal problems has been suspicious for perforated diverticulitis with an abscess has been treated conservatively however did have persistent elevated white count with a repeat CT did shows slight worsening of the abscess. Patient was scheduled for surgery on 01/27/2022, apparently the patient has refused to go for surgery On today's evaluation that is 01/27/2022, the patient remains to be afebrile, patient is breathing comfortably on room air, patient denies abdominal pain , but denies nausea no vomiting no diarrhea no chest pain shortness of breath or cough overall feeling better Objective - Vital Signs Vital signs: Vital Signs Temp 98.1 F 01/27/22 14:15 Pulse 80 01/27/22 14:15 Resp 19 01/27/22 14:15 BP 131/73 01/27/22 14:15 Pulse Ox 100 01/27/22 14:15 Intake & Output 01/26/22 01/27/22 01/27/22 18:59 06:59 18:59 Weight 86.183 kg Other: Voiding Method Toilet Toilet Toilet Urinal Urinal Urinal # Voids 2 1 1 # Bowel Movements 1 - Exam GENERAL DESCRIPTION: Middle-aged male lying in bed in no distress RESPIRATORY SYSTEM: Unlabored breathing , decreased breath sounds at bases HEART: S1 S2 regular rate and rhythm , ABDOMEN: Soft , distention or no significant tenderness EXTREMITIES: No edema feet - Labs CBC & Chem 7: 01/26/22 04:40 01/26/22 04:40 Labs: Microbiology - Last 24 Hours (Table) 01/26/22 04:40 Blood Culture - Preliminary Blood No Growth after 24 hours 01/21/22 20:57 Blood Culture - Preliminary Blood No Growth after 120 hours Assessment and Plan (1) Leukocytosis Current Visit: Yes Status: Acute Code(s): D72.829 - ELEVATED WHITE BLOOD CELL COUNT, UNSPECIFIED SNOMED Code(s): 019544988 Plan: 1patient with significantly with white count in this patient presented to hospital with abdominal pain and distention secondary to possible perforated diverticulitis with a peridiverticular abscess has been treated medically however the patient did have persistently elevated and concern for possible worsening of his diverticular abscess that may need surgical drainage is currently no other obvious focus of infection. [address] abdominal pelvis did show slight worsening of the abscess, discussed with the surgeon on the phone with a possible option of laparoscopic versus open drainage as a high risk of antibiotic failure , unfortunately the patient is refusing surgery, I did talk to the patient in simple [place] at high risk of antibiotic failure if no drainage procedures done however he wants to go that route, patient to get a PICC line 2 weeks of IV Zosyn 4.5 g every [address] hours with a repeat CT before he completed his antibiotics, if abscess Not Resolved by Then Patient Mentioned He Will Go for Surgery , prescription for antibiotics CT and lab work were provided to the immigration case worker Time with Patient: Less than 30
[2022-01-28] MEDS: metroNIDAZOLE-NS PMX 500 MG in SALINE 1 100ML.BAG IVPB SCH ×3 (00:31→16:42)
[2022-01-28] MEDS: HEPARIN SODIUM,PORCINE/PF 5,000 UNIT/0.5 ML SYRINGE SQ SCH ×3 (00:32→16:42)
[2022-01-28] MEDS: PIPERACILLIN-TAZOBACTAM 3.375 GM in SODIUM CHLORIDE 0.9% 100 ML IVPB SCH ×3 (00:32→15:59)
[2022-01-28 05:00] LABS: African American GFR (CKD) >90 (>60 ml/min/1.73 sqM); Anion Gap 3 mmol/L; Blood Urea Nitrogen 3 mg/dL (9-20); Calcium 7.1 mg/dL (8.4-10.2); Carbon Dioxide 20 mmol/L (22-30); Chloride 110 mmol/L (98-107); Glucose 94 mg/dL (74-99); Magnesium 1.9 mg/dL (1.6-2.3); Non-African American GFR(CKD) >90 (>60 ml/min/1.73 sqM); Potassium 3.5 mmol/L (3.5-5.1); Sodium 133 mmol/L (137-145)
[2022-01-28 08:25] VITALS: RESP 18
[2022-01-28 08:52] LABS: Basophils # (A) 0.11 X 10*3/uL (0.00-0.10); Basophils % (A) 0.7 %; Eosinophils # (A) 0.52 X 10*3/uL (0.04-0.35); Eosinophils % (A) 3.4 %; HCT 23.3 % (39.6-50.0); HGB 7.1 g/dL (13.0-17.0); Immature Grans, Automated 0.7 %; Lymphocytes # (A) 2.35 X 10*3/uL (0.90-5.00); Lymphocytes % (A) 15.3 %; MCHC 30.5 g/dL (32.0-37.0); MCV 85.3 fL (80.0-97.0); Mean Platelet Volume 9.2 fL (9.5-12.2); Monocytes # (A) 1.34 X 10*3/uL (0.20-1.00); Monocytes % (A) 8.7 %; NRBC Per 100 WBC 0 /100 WBCS (0.0-0.0); Neutrophils # (A) 10.91 X 10*3/uL (1.80-7.70); Neutrophils % (A) 71.2 %; Platelet Count 251 X 10*3/uL (140-440); RBC 2.73 X 10*6/uL (4.40-5.60); RDW 30.5 % (11.5-14.5); WBC 15.33 X 10*3/uL (4.50-10.00)
--- NOTE | 2022-01-28 10:53 | P.DS ---
Providers Date of admission: 01/21/22 20:06 Expected date of discharge: 01/28/22 Attending physician: Colt Ho Consults: 01/21/22 19:50 Consult Physician Routine Consulting Provider: Roni Ojeda Consult Reason/Comments: Medical Management Do you want consulting provider notified?: Yes 01/22/22 09:24 Consult Physician Routine Consulting Provider: Thelma Brownlee Consult Reason/Comments: Possible cirrhosis Do you want consulting provider notified?: Yes, Notify in am 01/25/22 12:21 Consult Physician Routine Consulting Provider: Fabian Vogt Consult Reason/Comments: Leukocytosis Do you want consulting provider notified?: Yes Primary care physician: Stated None - Discharge Diagnosis(es) (1) Bowel perforation Patient was admitted to the hospital with complaints of abdominal bloating and pain. Patient had a CAT scan performed in the ER showing suspected sigmoid colon perforation secondary to diverticulitis along with ascites. Patient with anemia and elevated bilirubin suggestive of possible chronic liver disease. Patient actually wanted to leave from the ER stating his pain was not bad. He was convinced to stay. He was kept on liquid diet initially. Gradually his diet was advanced. He was kept on IV antibiotics. His white blood cell count did not improve. Infectious disease was consulted. Repeat CAT scan was performed showing no significant improvements. Patient was scheduled for laparoscopic drainage, possible laparotomy however patient changes her mind and decided against surgery. Patient will be going home today on IV antibiotics. Follow-up CAT scan ordered in 2 weeks. Patient instructed to return to the ER if any recurrent abdominal pain or fevers occur. Current Visit: Yes Status: Acute Patient Condition at Discharge: Serious Plan - Discharge Summary Discharge Rx Participant: Yes New Discharge Prescriptions: New Piperacillin-Tazobactam [Zosyn] 4.5 gm IVPB Q8HR #42 each Discontinued Ibuprofen [Motrin] 600 mg PO Q8HR PRN #30 tab PRN Reason: Pain No Action Acetaminophen [Tylenol] 1,000 mg PO Q4-6H PRN PRN Reason: Pain Or Fever > 100.5 Discharge Medication List Acetaminophen [Tylenol] 1,000 mg PO Q4-6H PRN 01/21/22 [History] Piperacillin-Tazobactam [Zosyn] 4.5 gm IVPB Q8HR #42 each 01/27/22 [Rx] Follow up Appointment(s)/Referral(s): Outpatient, CT Scan [Other] - 02/10/22 8:00 am ([facility]. Outpatient testing.) [facility], [NON-STAFF] - As Needed None,Stated [Primary Care Provider] - 1-2 days [facility] [NON-STAFF] - As Needed [facility], [REFERRING] - As Needed Fabian Vogt MD [STAFF PHYSICIAN] - 2 Weeks Colt Ho MD [Medical Doctor] - 1 Week Thelma Brownlee MD [STAFF PHYSICIAN] - 1 Week Ambulatory/Diagnostic Orders: Basic Metabolic Panel [LAB.AMB] Location: None Selected C Reactive Protein [LAB.AMB] Location: None Selected Complete Blood Count w/diff [LAB.AMB] Location: None Selected Miscellaneous Radiology Order [RAD.AMB] Location: None Selected Activity/Diet/Wound Care/Special Instructions: RN or CM to call [facility] when discharged in order to arrange delivery to home: #[phone]
[2022-01-28 15:17] VITALS: BP 133/71; PULSE 99; TEMP 99.9
--- NOTE | 2022-01-28 16:51 | P.PN ---
Subjective Progress Note Date: 01/28/22 (delayed charting seen at 0930) Principal diagnosis: abdominal pain Patient is a 61-year-old male with no known past medical history who has been admitted for diverticulitis with possible microperforation. Patient seen and examined at bedside. No pain, no nausea, normal BM yesterday. General: non toxic, no distress, appears at stated age Derm: warm, dry Head: atraumatic, normocephalic, symmetric Eyes: EOMI, no lid lag, anicteric sclera Mouth: no lip lesion, mucus membranes dry Cardiovascular: S1S2 irreg, no murmur, positive posterior tibial pulse bilateral, Lungs: Decreased bs bilateral, no rhonchi, no rales , no accessory muscle use Abdominal: soft, distended, non tender to palpation, no guarding, no appreciable organomegaly Ext: no gross muscle atrophy, no edema, no contractures Neuro: CN II-XI grossly intact, no focal neuro deficits Psych: Alert, oriented, appropriate affect Assessment/plan: Perforated diverticulitis -With abscess and multiple fluid collections - PICC line placed, 2 weeks of IV abx then repeat CT and determination if surgery needed - outpatient follow-up with Dr Ho and Dr. Vogt Acute anemia -Possibly related to above, although there is no signs of active bleeding -Probable Iron deficiency, oral iron once daily. - follow CBC Fatty infiltration of the liver without definitive cirrhosis on imaging -Abdominal ascities could be related to acute infection -gallbladder distension on abd ultrasound -outpatient follow-up Hyponatremia with fluid overload, stable - improving - repeat in AM Elevated Bilirubin - improving - continue to follow Labs pending at this time of my evaluation [facility] with [facility] to [facility] care. Medicaid application has been started.Med recs addressed. Medically stable for discharge. Active Medications Generic Name Dose Route Start Last Admin Trade Name Freq PRN Reason Stop Dose Admin Acetaminophen 650 mg 01/22/22 20:28 01/22/22 20:34 Acetaminophen Tab 325 Mg Tab PO 650 mg Q6HR PRN Administration Fever and/ or mild Pain Heparin Sodium (Porcine) 5,000 unit 01/22/22 00:00 01/28/22 07:24 Heparin Sodium,Porcine/Pf 5,000 Unit/0.5 Ml Syringe SQ 5,000 unit Q8HR [facility] Administration Hydromorphone HCl 0.5 mg 01/21/22 19:47 Hydromorphone 0.5 Mg/0.5 Ml Syringe IVP Q3HR PRN Moderate Pain Piperacillin Sod/Tazobactam 100 mls @ 25 mls/hr 01/22/22 00:00 01/28/22 15:59 Sod 3.375 gm/ Sodium Chloride IVPB 25 mls/hr Q8HR [facility] Administration Protocol Metronidazole 500 mg/ IV 100 mls @ 100 mls/hr 01/22/22 16:00 01/28/22 07:24 Solution IVPB 100 mls/hr Q8HR [facility] Administration Protocol Sodium Chloride 1,000 mls @ 50 mls/hr 01/27/22 11:15 01/27/22 20:24 Saline 0.9% IV Not Given .Q20H [facility] Naloxone HCl 0.2 mg 01/21/22 19:47 Naloxone 0.4 Mg/Ml 1 Ml Vial IV Q2M PRN Opioid Reversal Ondansetron HCl 4 mg 01/21/22 19:47 Ondansetron 4 Mg/2 Ml Vial IVP Q8HR PRN Nausea And Vomiting Objective - Vital Signs Vital signs: Vital Signs Temp 99.9 F H 01/28/22 13:50 Pulse 99 01/28/22 13:50 Resp 18 01/28/22 13:50 BP 133/71 01/28/22 13:50 Pulse Ox 98 01/28/22 13:50 Intake & Output 01/27/22 01/28/22 01/28/22 18:59 06:59 18:59 Intake Total 350 800 Balance 350 800 Intake: Intake, IV Titration 800 Amount Piperacillin-Tazobactam 3 200 .375 gm In Sodium Chloride 0.9% 100 ml @ 25 mls/hr IVPB Q8HR [facility] Rx# :[id number] Sodium Chloride 0.9% 1, 600 000 ml @ 50 mls/hr IV . Q20H [facility] Rx#:[id number] Oral 350 Other: Voiding Method Toilet Toilet Urinal Urinal # Voids 1 3 # Bowel Movements 1 - Labs CBC & Chem 7: 01/28/22 04:10 01/28/22 04:10 Labs: Abnormal Lab Results - Last 24 Hours (Table) 01/28/22 01/28/22 Range/Units 04:10 04:10 WBC 15.33 H (4.50-10.00) X 10*3/uL RBC 2.73 L (4.40-5.60) X 10*6/uL Hgb 7.1 L (13.0-17.0) g/dL Hct 23.3 L (39.6-50.0) % MCH 26.0 L (27.0-32.0) pg MCHC 30.5 L (32.0-37.0) g/dL RDW 30.5 H (11.5-14.5) % MPV 9.2 L (9.5-12.2) fL Immature Gran # 0.10 H (0.00-0.04) X 10*3/uL Neutrophils # 10.91 H (1.80-7.70) X 10*3/uL Monocytes # 1.34 H (0.20-1.00) X 10*3/uL Eosinophils # 0.52 H (0.04-0.35) X 10*3/uL Basophils # 0.11 H (0.00-0.10) X 10*3/uL Sodium 133 L (137-145) mmol/L Chloride 110 H (98-107) mmol/L Carbon Dioxide 20 L (22-30) mmol/L BUN 3 L (9-20) mg/dL Creatinine 0.61 L (0.66-1.25) mg/dL Calcium 7.1 L (8.4-10.2) mg/dL Microbiology - Last 24 Hours (Table) 01/26/22 04:40 Blood Culture - Preliminary Blood No Growth after 48 hours 01/21/22 20:57 Blood Culture - Final Blood No Growth after 144 hours
--- NOTE | 2022-01-28 18:15 | P.PN ---
Subjective Progress Note Date: 01/28/22 Principal diagnosis: Leukocytosis Patient is 61-year-old male presented to the hospital with a two-week history of abdominal pain in this patient's CT of abdominal problems has been suspicious for perforated diverticulitis with an abscess has been treated conservatively however did have persistent elevated white count with a repeat CT did shows slight worsening of the abscess. Patient was scheduled for surgery on 01/27/2022, apparently the patient has refused to go for surgery On today's evaluation that is 01/28/2022, the patient denies any fever or any chills, patient is breathing comfortably on room air, patient denies abdominal pain , the patient denies nausea no vomiting no diarrhea no chest pain shortness of breath or cough, the patient is overall feeling better Objective - Vital Signs Vital signs: Vital Signs Temp 99.9 F H 01/28/22 13:50 Pulse 99 01/28/22 13:50 Resp 18 01/28/22 13:50 BP 133/71 01/28/22 13:50 Pulse Ox 98 01/28/22 13:50 Intake & Output 01/27/22 01/28/22 01/28/22 18:59 06:59 18:59 Intake Total 350 800 Balance 350 800 Intake: Intake, IV Titration 800 Amount Piperacillin-Tazobactam 3 200 .375 gm In Sodium Chloride 0.9% 100 ml @ 25 mls/hr IVPB Q8HR [facility] Rx# :[id number] Sodium Chloride 0.9% 1, 600 000 ml @ 50 mls/hr IV . Q20H [facility] Rx#:[id number] Oral 350 Other: Voiding Method Toilet Toilet Urinal Urinal # Voids 1 3 # Bowel Movements 1 - Exam GENERAL DESCRIPTION: Middle-aged male lying in bed in no distress RESPIRATORY SYSTEM: Unlabored breathing , decreased breath sounds at bases HEART: S1 S2 regular rate and rhythm , ABDOMEN: Soft , distention or no significant tenderness EXTREMITIES: No edema feet - Labs CBC & Chem 7: 01/28/22 04:10 01/28/22 04:10 Labs: Abnormal Lab Results - Last 24 Hours (Table) 01/28/22 01/28/22 Range/Units 04:10 04:10 WBC 15.33 H (4.50-10.00) X 10*3/uL RBC 2.73 L (4.40-5.60) X 10*6/uL Hgb 7.1 L (13.0-17.0) g/dL Hct 23.3 L (39.6-50.0) % MCH 26.0 L (27.0-32.0) pg MCHC 30.5 L (32.0-37.0) g/dL RDW 30.5 H (11.5-14.5) % MPV 9.2 L (9.5-12.2) fL Immature Gran # 0.10 H (0.00-0.04) X 10*3/uL Neutrophils # 10.91 H (1.80-7.70) X 10*3/uL Monocytes # 1.34 H (0.20-1.00) X 10*3/uL Eosinophils # 0.52 H (0.04-0.35) X 10*3/uL Basophils # 0.11 H (0.00-0.10) X 10*3/uL Sodium 133 L (137-145) mmol/L Chloride 110 H (98-107) mmol/L Carbon Dioxide 20 L (22-30) mmol/L BUN 3 L (9-20) mg/dL Creatinine 0.61 L (0.66-1.25) mg/dL Calcium 7.1 L (8.4-10.2) mg/dL Microbiology - Last 24 Hours (Table) 01/26/22 04:40 Blood Culture - Preliminary Blood No Growth after 48 hours 01/21/22 20:57 Blood Culture - Final Blood No Growth after 144 hours Assessment and Plan (1) Leukocytosis Status: Acute Code(s): D72.829 - ELEVATED WHITE BLOOD CELL COUNT, UNSPECIFIED SNOMED Code(s): 109824561 Plan: 1patient with significantly with white count in this patient presented to hospital with abdominal pain and distention secondary to possible perforated diverticulitis with a peridiverticular abscess has been treated medically however the patient did have persistently elevated and concern for possible worsening of his diverticular abscess that may need surgical drainage is currently no other obvious focus of infection. [address] abdominal pelvis did show slight worsening of the abscess, discussed with the surgeon on the phone with a possible option of laparoscopic versus open drainage as a high risk of antibiotic failure , unfortunately the patient is refusing surgery, however both patient and the understands that the patient abscess may not completely resolved with the antibiotics alone, IV Zosyn has been arranged for the patient for 2 weeks with a plan for repeat CAT scan before the end of the antibiotics and further management on the base of clinical response as well as the repeat CAT scan Time with Patient: Less than 30
== END 2022-01-28 16:58 | disposition home health service (06) | DRG 872 ==
LOC: EC 15:04 → 4SSUR 20:06
PROVIDERS: ADMIT Surgery; ATTEND Surgery
PROC: 30233N1 Transfusion of Nonautologous Red Blood Cells into Peripheral Vein, Percutaneous Approach (ICD-10-PCS; 2022-01-22)
PROC: B5181ZA Fluoroscopy of Superior Vena Cava using Low Osmolar Contrast, Guidance (ICD-10-PCS; 2022-01-27)
PROC: 05HC33Z Insertion of Infusion Device into Left Basilic Vein, Percutaneous Approach (ICD-10-PCS; 2022-01-27)
PROC: 02HV33Z Insertion of Infusion Device into Superior Vena Cava, Percutaneous Approach (ICD-10-PCS; principal; 2022-01-27 12:25)
PROC: B548ZZA Ultrasonography of Superior Vena Cava, Guidance (ICD-10-PCS; 2022-01-27 12:25)
DX: A41.9 Sepsis, unspecified organism (principal); E87.1 Hypo-osmolality and hyponatremia; E87.2 Acidosis; D62 Acute posthemorrhagic anemia; K57.20 Diverticulitis of large intestine with perforation and abscess without bleeding; E66.01 Morbid (severe) obesity due to excess calories; K70.31 Alcoholic cirrhosis of liver with ascites; D50.9 Iron deficiency anemia, unspecified; Z20.822 Contact with and (suspected) exposure to COVID-19; E87.6 Hypokalemia; E87.70 Fluid overload, unspecified; F10.10 Alcohol abuse, uncomplicated; K76.0 Fatty (change of) liver, not elsewhere classified; Z79.2 Long term (current) use of antibiotics; Z71.3 Dietary counseling and surveillance; Z68.31 Body mass index [BMI] 31.0-31.9, adult
CPT/HCPCS: 36415; 36573; 71046; 74019; 74177; 76705; 80048; 80053; 81003; 82728; 83540; 83550; 83605; 83690; 83735; 84484; 85025; 85027; 85610; 86140; 86850; 86900; 86901; 86920; 87040; 87635; 93005; 96361; 96374; 96375; 99285

== ENCOUNTER → 2022-02-10 | Outpatient (CLI) | payer SELFPAY ==
--- NOTE | 2022-02-10 13:29 | CT ---
EXAMINATION TYPE: CT abdomen pelvis w con DATE OF EXAM: 02/10/2022 COMPARISON: 01/26/2022 HISTORY: follow up to abscess CT DLP: 2092.0 mGycm Automated exposure control for dose reduction was used. TECHNIQUE: Helical acquisition of images was performed from the lung bases through the pelvis. CONTRAST: Performed with Oral Contrast and with IV Contrast, patient injected with 100 mL of Isovue 300. FINDINGS: There is mild interstitial scarring in the right lung base in small stable bilateral pleural effusion s. The small mass containing complex fluid in the left abdomen is again seen but has decreased in size i n the interval from 6.7 x 3.0 cm to 3.5 x 2.0 cm. The adjacent extraluminal air seen on the prior marco antonio dy has resolved in the interval. There is a large amount of ascites which has increased in the interval significantly. There is no rubin e intraperitoneal air. The bowel loops are normal in caliber and there is no evidence of obstruction. There is no gallstones or gallbladder distention or pericholecystic fluid. No focal masses or organom egaly involving the liver, pancreas, spleen or adrenal glands. The kidneys excrete contrast promptly and symmetrically. No solid renal mass or hydronephrosis. There is no retroperitoneal adenopathy or hemorrhage in the caliber of the abdominal aorta is normal. There is no pelvic mass or adenopathy. There are small lateral inguinal hernias containing ascitic fl uid. The osseous structures are intact. IMPRESSION: 1. Left abdominal abscess significantly smaller in size compared to previous. Resolution of the extra luminal air in the left abdomen. 2. Markedly increasing ascites. 3. Stable small bilateral pleural effusions. 4. small inguinal hernias containing free fluid but no bowel loops. 5. No bowel obstruction
[2022-02-10 14:44] LABS: African American GFR (CKD) 126.7 (60.0-200.0); Anion Gap 8.3 mmol/L (10.00-18.00); BUN/Creat Ratio 6.17 Ratio (12.00-20.00); Blood Urea Nitrogen 3.7 mg/dL (9.0-27.0); C Reactive Protein 0.3 mg/dL (0.00-0.80); Calcium 7.8 mg/dL (8.7-10.3); Carbon Dioxide 21.7 mmol/L (20.0-27.5); Non-African American GFR(CKD) 109.3 (60.0-200.0); Potassium 3.4 mmol/L (3.5-5.5)
== END | disposition home or self-care (01) ==
LOC: RADCTMAIN 07:58
PROVIDERS: ATTEND Internal Medicine Infectious Disease
DX: K65.1 Peritoneal abscess (principal); D72.829 Elevated white blood cell count, unspecified
CPT/HCPCS: 80048; 86140; 74177; Q9967

== ENCOUNTER 2022-02-23 10:42 | Inpatient (IN) | payer OTHER ==
[~2022-02-23 10:42] MED LIST: PIPERACILLIN-TAZOBACTAM 3.375 GM in SODIUM CHLORIDE 0.9% 100 ML IVPB SCH
--- NOTE | 2022-02-23 15:04 | ED ---
General Adult HPI - General Chief complaint: Recheck/Abnormal Lab/Rx Stated complaint: Swollen Legs Time Seen by Provider: 02/23/22 14:17 Source: patient, family Mode of arrival: ambulatory Limitations: no limitations - History of Present Illness Initial comments: Dictation was produced using [employer] dictation software. please excuse any grammatical, word or spelling errors. Chief Complaint: 61-year-old male presents to the emergency department for leg swelling History of Present Illness: Patient is a 61-year-old male he has past medical history of diverticulitis. Accompanied by his . Last 2 weeks she's been having worsening lower stomach swelling. He has had swelling in the past though not this severe. He went to see Dr. freed at [facility] and was told to come to the emergency department. Patient not have any shortness of breath. Patient has any chest pain. Denies any history of cardiac disease. The ROS documented in this emergency department record has been reviewed and confirmed by me. Those systems with pertinent positive or negative responses have been documented in the HPI. All other systems are other negative and/or noncontributory. PHYSICAL EXAM: General Impression: Alert and oriented x3, not in acute distress HEENT: Normocephalic atraumatic, extra-ocular movements intact, pupils equal and reactive to light bilaterally, mucous membranes moist. Cardiovascular: Heart regular rate and rhythm Chest: Able to complete full sentences, no retractions, no tachypnea, clear to auscultation bilaterally Abdomen: abdomen soft, non-tender, non-distended, no organomegaly Musculoskeletal: Pulses present and equal in all extremities, 3+ pitting edema to bilateral lower extremities Motor: no focal deficits noted Neurological: CN II-XII grossly intact, no focal motor or sensory deficits noted Skin: Intact with no visualized rashes Psych: Normal affect and mood ED course: 61-year-old male presents to the emergency department for bilateral lower extremity swelling. Patient does not have any shortness of breath to suggest heart failure. Ends upon arrival are within acceptable limits. Sriram osito's well-appearing at bedside he does not appear to be in any acute distress. Lavatory evaluation obtained. No leukocytosis. Hemoglobin 6.2 which is below his baseline. Coag panel is unremarkable. Metabolic panel shows potassium 3.2. Rest of metabolic panel is within acceptable limits. Stool occult blood is negative. Patient denies any history of black or bloody stools. Patient over f or a 1 unit of blood transfusion. Patient will be admitted to [facility] for further monitoring and further care. EKG interpretation: Ventricular rate 91, sinus rhythm, IL interval 140, QS 105, QTC 414. No IL prolongation, no QTC prolongation, no ST or T-wave changes noted. EKG compared to 01/21/2022 showing no changes. Overall, this EKG is unremarkable - Related Data Previous Rx's Medication Instructions Recorded Piperacillin-Tazobactam [Zosyn] 4.5 gm IVPB Q8HR #42 each 01/27/22 Allergies Allergy/AdvReac Type Severity Reaction Status Date / Time No Known Allergies Allergy Verified 02/23/22 14:46 Review of Systems ROS Statement: Those systems with pertinent positive or pertinent negative responses have been documented in the HPI. ROS Other: All systems not noted in ROS Statement are negative. Past Medical History Past Medical History: No Reported History Additional Past Medical History / Comment(s): Diverticulitis History of Any Multi-Drug Resistant Organisms: None Reported Past Surgical History: No Surgical Hx Reported Past Psychological History: No Psychological Hx Reported Smoking Status: Never smoker Past Alcohol Use History: Occasional Past Drug Use History: Marijuana General Exam Limitations: no limitations Course Vital Signs 02/23/22 12:10 Temperature 98.1 F Pulse Rate 82 Respiratory 18 Rate Blood Pressure 141/72 O2 Sat by Pulse 98 Oximetry Medical Decision Making - Lab Data Result diagrams: 02/23/22 15:01 02/23/22 15:01 Lab Results 02/23/22 02/23/22 02/23/22 Range/Units 15:01 15:01 15:01 WBC 9.3 (3.8-10.6) k/uL RBC 2.26 L (4.30-5.90) m/uL Hgb 6.2 L* D (13.0-17.5) gm/dL Hct 20.1 L (39.0-53.0) % MCV 88.6 (80.0-100.0) fL MCH 27.3 (25.0-35.0) pg MCHC 30.8 L (31.0-37.0) g/dL RDW 20.0 H (11.5-15.5) % Plt Count 296 (150-450) k/uL MPV 7.3 Neutrophils % 63 % Lymphocytes % 21 % Monocytes % 7 % Eosinophils % 6 % Basophils % 1 % Neutrophils # 5.8 (1.3-7.7) k/uL Lymphocytes # 2.0 (1.0-4.8) k/uL Monocytes # 0.7 (0-1.0) k/uL Eosinophils # 0.5 (0-0.7) k/uL Basophils # 0.1 (0-0.2) k/uL Hypochromasia Marked Anisocytosis Slight Microcytosis Slight PT 12.7 H (9.0-12.0) sec INR 1.2 H (<1.2) APTT 25.4 (22.0-30.0) sec Sodium 139 (137-145) mmol/L Potassium 3.2 L (3.5-5.1) mmol/L Chloride 112 H (98-107) mmol/L Carbon Dioxide 22 (22-30) mmol/L Anion Gap 5 mmol/L BUN 3 L (9-20) mg/dL Creatinine 0.53 L (0.66-1.25) mg/dL Est GFR (CKD-EPI)AfAm >90 (>60 ml/min/1.73 sqM) Est GFR (CKD-EPI)NonAf >90 (>60 ml/min/1.73 sqM) Glucose 133 H (74-99) mg/dL Calcium 7.6 L (8.4-10.2) mg/dL Magnesium 1.7 (1.6-2.3) mg/dL Total Bilirubin 1.1 (0.2-1.3) mg/dL AST 28 (17-59) U/L ALT 9 (4-49) U/L Alkaline Phosphatase 106 (38-126) U/L Troponin I (0.000-0.034) ng/mL NT-Pro-B Natriuret Pep pg/mL Total Protein 6.5 (6.3-8.2) g/dL Albumin 2.3 L (3.5-5.0) g/dL Lipase 35 (23-300) U/L Stool Occult Blood (Negative) 02/23/22 02/23/22 02/23/22 Range/Units 15:01 15:01 16:50 WBC (3.8-10.6) k/uL RBC (4.30-5.90) m/uL Hgb (13.0-17.5) gm/dL Hct (39.0-53.0) % MCV (80.0-100.0) fL MCH (25.0-35.0) pg MCHC (31.0-37.0) g/dL RDW (11.5-15.5) % Plt Count (150-450) k/uL MPV Neutrophils % % Lymphocytes % % Monocytes % % Eosinophils % % Basophils % % Neutrophils # (1.3-7.7) k/uL Lymphocytes # (1.0-4.8) k/uL Monocytes # (0-1.0) k/uL Eosinophils # (0-0.7) k/uL Basophils # (0-0.2) k/uL Hypochromasia Anisocytosis Microcytosis PT (9.0-12.0) sec INR (<1.2) APTT (22.0-30.0) sec Sodium (137-145) mmol/L Potassium (3.5-5.1) mmol/L Chloride (98-107) mmol/L Carbon Dioxide (22-30) mmol/L Anion Gap mmol/L BUN (9-20) mg/dL Creatinine (0.66-1.25) mg/dL Est GFR (CKD-EPI)AfAm (>60 ml/min/1.73 sqM) Est GFR (CKD-EPI)NonAf (>60 ml/min/1.73 sqM) Glucose (74-99) mg/dL Calcium (8.4-10.2) mg/dL Magnesium (1.6-2.3) mg/dL Total Bilirubin (0.2-1.3) mg/dL AST (17-59) U/L ALT (4-49) U/L Alkaline Phosphatase (38-126) U/L Troponin I <0.012 (0.000-0.034) ng/mL NT-Pro-B Natriuret Pep 262 pg/mL Total Protein (6.3-8.2) g/dL Albumin (3.5-5.0) g/dL Lipase (23-300) U/L Stool Occult Blood Negative (Negative) Disposition Clinical Impression: Anemia Disposition: ADMITTED IP TO THIS [facility] Condition: Fair Referrals: [facility] [Primary Care Provider] - 1-2 days
[2022-02-23 15:30] LABS: INR 1.2 (<1.2); Partial Thromboplastin Time 25.4 sec (22.0-30.0); Prothrombin Time 12.7 sec (9.0-12.0)
[2022-02-23 15:34] LABS: Anisocytosis Slight; Basophils # (A) 0.1 k/uL (0-0.2); Basophils % (A) 1 %; Eosinophils # (A) 0.5 k/uL (0-0.7); Eosinophils % (A) 6 %; HCT 20.1 % (39.0-53.0); Hypochromasia Marked; Lymphocytes % (A) 21 %; MCH 27.3 pg (25.0-35.0); MCHC 30.8 g/dL (31.0-37.0); MCV 88.6 fL (80.0-100.0); Mean Platelet Volume 7.3; Microcytosis Slight; Monocytes # (A) 0.7 k/uL (0-1.0); Monocytes % (A) 7 %; Neutrophils # (A) 5.8 k/uL (1.3-7.7); Neutrophils % (A) 63 %; Platelet Count 296 k/uL (150-450); RBC 2.26 m/uL (4.30-5.90); WBC 9.3 k/uL (3.8-10.6)
[2022-02-23 15:39] LABS: ALT 9 U/L (4-49); AST 28 U/L (17-59); African American GFR (CKD) >90 (>60 ml/min/1.73 sqM); Albumin 2.3 g/dL (3.5-5.0); Alkaline Phosphatase 106 U/L (38-126); Anion Gap 5 mmol/L; Blood Urea Nitrogen 3 mg/dL (9-20); Calcium 7.6 mg/dL (8.4-10.2); Carbon Dioxide 22 mmol/L (22-30); Chloride 112 mmol/L (98-107); Glucose 133 mg/dL (74-99); Lipase 35 U/L (23-300); Magnesium 1.7 mg/dL (1.6-2.3); Non-African American GFR(CKD) >90 (>60 ml/min/1.73 sqM); Potassium 3.2 mmol/L (3.5-5.1); Sodium 139 mmol/L (137-145); Total Bilirubin 1.1 mg/dL (0.2-1.3); Total Protein 6.5 g/dL (6.3-8.2)
[2022-02-23 15:43] LABS: HGB 6.2 gm/dL (13.0-17.5)
[2022-02-23] MEDS ORDERED: PIPERACILLIN-TAZOBACTAM 3.375 GM in SODIUM CHLORIDE 0.9% 100 ML IVPB STA (16:10)
[2022-02-23] MEDS ORDERED: NALOXONE 0.4 MG/ML 1 ML VIAL IV PRN (17:40)
[2022-02-23] MEDS ORDERED: POTASSIUM CHLORIDE ER 20 MEQ TAB.ER PO STA (21:28)
--- NOTE | 2022-02-23 21:32 | P.HPIM ---
History of Present Illness H&P Date: 02/23/22 The patient is a 7-year-old male with no known PMH, recently admitted on 01/21 until 01/28 for perforated diverticulitis discharged home with PICC line and IV Zosyn who now presents to the emergency room with complaints of bilateral lower extremity edema extending up to the abdomen. The edema developed gradually over the past 1 week. Denied shortness of breath, orthopnea, chest pain. Denies lower extremity pain, abdominal pain, nausea, vomiting, diarrhea. The patient reports ongoing Zosyn IV use. He underwent a follow-up computed tomography scan on 02/10 which revealed significant improvement in the left abdominal abscess along with increasing ascites. Laboratory evaluation in the emergency room reveals a proBNP 262, albumin 2.3, INR 1.2, and hemoglobin 6.2 (previously 7.1 on discharge on 01/28). Patient reports that he gets minimal activity at home and is essentially seated in his couch most of the day. Denies noticing bloody or black tarry stools. Denies alcohol use. Review of systems: Pertinent positives and negatives as discussed in HPI, a complete review of systems was performed and all other systems are negative. Physical examination: General: non toxic, no distress, appears at stated age, obese Derm: no unusual rashes/lesions no unusual ecchymoses, warm, dry Head: atraumatic, normocephalic, symmetric Eyes: EOMI, no lid lag, anicteric sclera, pupils equal round reactive to light ENT: Nose and ears atraumatic, no thrush, no pharyngeal erythema Neck: No thyromegaly, no cervical lymphadenopathy, trachea midline, supple Mouth: no lip lesion, mucus membranes moist Cardiovascular: S1S2 reg, no murmur, positive posterior tibial pulse bilateral, 2+ bilateral lower extremity edema extending up to the abdomen, capillary refill less than 2 seconds Lungs: CTA bilateral, no rhonchi, no rales , no accessory muscle use Abdominal: Distended, nontender to palpation, no guarding, no appreciable organomegaly, normal bowel sounds Ext: no gross muscle atrophy, muscle strength 5 out of 5 in all 4 extremities grossly, no contractures, Neuro: CN II-XI grossly intact, light touch intact all 4 extremities, finger to nose within normal limits, Psych: Alert, oriented, appropriate affect Assessment/plan Abdominal distention, ascites -Patient had CT abdomen on 02/10 showing worsening ascites with no definitive cirrhosis noted -Patient is hypoalbuminemic at 2.3 (previously 1.9) -Suspect ascites secondary to increased salt and fluid load in setting of IV Zosyn with possible developing cirrhosis -Consult IR for paracentesis -Obtain liver ultrasound Normocytic anemia, previous workup consistent with anemia of chronic disease with component of iron deficiency -FOBT negative -1 unit PRBCs ordered in the emergency room -Monitor CBC Hypokalemia -Replace and monitor Perforated diverticulitis with abscess, on IV Zosyn -ID consult for guidance regarding continuation of antibiotics DVT prophylaxis -Heparin subcu The patient is admitted with an anticipated greater than 2 midnight stay for evaluation of ascites CODE STATUS: Full Code Discussed with: Patient Anticipated discharge date: 02/[address]: Home Past Medical History Past Medical History: No Reported History Additional Past Medical History / Comment(s): Diverticulitis History of Any Multi-Drug Resistant Organisms: None Reported Past Surgical History: No Surgical Hx Reported Past Psychological History: No Psychological Hx Reported Smoking Status: Never smoker Past Alcohol Use History: Occasional Past Drug Use History: Marijuana - Past Family History Father Family Medical History: Hypertension Medications and Allergies Home Medications Medication Instructions Recorded Confirmed Type Piperacillin-Tazobactam [Zosyn] 4.5 gm IVPB Q8HR #42 each 01/27/22 02/23/22 Rx Allergies Allergy/AdvReac Type Severity Reaction Status Date / Time No Known Allergies Allergy Verified 02/23/22 14:46 Physical Exam Vitals: Vital Signs Temp Pulse Resp BP Pulse Ox 02/23/22 20:05 98.0 F 80 18 154/86 99 02/23/22 19:35 97.8 F 78 18 152/77 99 02/23/22 19:25 97.8 F 80 18 152/88 99 02/23/22 12:10 98.1 F 82 18 141/72 98 Intake and Output 02/23/22 02/23/22 02/23/22 06:59 14:59 22:59 Intake Total 0 Balance 0 Intake: Blood Product 0 Rc As-1 Unit 0 [id number] Other: Weight 110.223 kg Results CBC & Chem 7: 02/23/22 15:01 02/23/22 15:01 Labs: Abnormal Lab Results - Last 24 Hours (Table) 02/23/22 02/23/22 02/23/22 Range/Units 15:01 15:01 15:01 RBC 2.26 L (4.30-5.90) m/uL Hgb 6.2 L* D (13.0-17.5) gm/dL Hct 20.1 L (39.0-53.0) % MCHC 30.8 L (31.0-37.0) g/dL RDW 20.0 H (11.5-15.5) % PT 12.7 H (9.0-12.0) sec INR 1.2 H (<1.2) Potassium 3.2 L (3.5-5.1) mmol/L Chloride 112 H (98-107) mmol/L BUN 3 L (9-20) mg/dL Creatinine 0.53 L (0.66-1.25) mg/dL Glucose 133 H (74-99) mg/dL Calcium 7.6 L (8.4-10.2) mg/dL Albumin 2.3 L (3.5-5.0) g/dL Crossmatch 02/23/22 Range/Units 16:50 RBC (4.30-5.90) m/uL Hgb (13.0-17.5) gm/dL Hct (39.0-53.0) % MCHC (31.0-37.0) g/dL RDW (11.5-15.5) % PT (9.0-12.0) sec INR (<1.2) Potassium (3.5-5.1) mmol/L Chloride (98-107) mmol/L BUN (9-20) mg/dL Creatinine (0.66-1.25) mg/dL Glucose (74-99) mg/dL Calcium (8.4-10.2) mg/dL Albumin (3.5-5.0) g/dL Crossmatch See Detail
[2022-02-23] MEDS: SODIUM CHLORIDE 0.9% 1,000 ML IV SCH (22:00)
--- NOTE | 2022-02-23 22:10 | US ---
EXAMINATION TYPE: US abdomen limited DATE OF EXAM: 02/23/2022 COMPARISON: CT 02/10/22, US 01/21/22 CLINICAL HISTORY: Ascites. Ascites Moderate ascites seen in all four quadrants. IMPRESSION: Exam demonstrates moderate amount of ascites fluid throughout the abdomen.
[2022-02-24] MEDS ORDERED: PIPERACILLIN-TAZOBACTAM 3.375 GM VIAL IVPB SCH
[2022-02-24] MEDS: HEPARIN SODIUM,PORCINE/PF 5,000 UNIT/0.5 ML SYRINGE SQ SCH ×3 (05:51→18:09)
[2022-02-24 09:07] LABS: HCT 26.2 % (39.6-50.0); HGB 8.2 g/dL (13.0-17.0); MCH 27.6 pg (27.0-32.0); MCHC 31.3 g/dL (32.0-37.0); MCV 88.2 fL (80.0-97.0); Mean Platelet Volume 9.6 fL (9.5-12.2); NRBC Per 100 WBC 0 /100 WBCS (0.0-0.0); Platelet Count 194 X 10*3/uL (140-440); RBC 2.97 X 10*6/uL (4.40-5.60); RDW 19.8 % (11.5-14.5); WBC 6.15 X 10*3/uL (4.50-10.00)
[2022-02-24] MEDS: PIPERACILLIN-TAZOBACTAM 3.375 GM in SODIUM CHLORIDE 0.9% 100 ML IVPB SCH ×3 (09:45→18:36)
[2022-02-24 10:12] LABS: African American GFR (CKD) 136.5 (60.0-200.0); Albumin 1.8 g/dL (3.8-4.9); Albumin/Globulin Ratio 0.5 (1.60-3.17); Anion Gap 3.7 mmol/L (10.00-18.00); BUN/Creat Ratio 5.6 Ratio (12.00-20.00); Blood Urea Nitrogen 2.8 mg/dL (9.0-27.0); Calcium 7.6 mg/dL (8.7-10.3); Carbon Dioxide 26.3 mmol/L (20.0-27.5); Globulin 3.6 g/dL (1.6-3.3); Non-African American GFR(CKD) 117.8 (60.0-200.0); Potassium 3.4 mmol/L (3.5-5.5); Total Protein 5.4 g/dL (6.2-8.2)
[2022-02-24] MEDS ORDERED: IOPAMIDOL CONTRAST (ORAL USE) VIAL PO PRN (10:58)
[2022-02-24] MEDS ORDERED: LIDOCAINE 1% INJ 10MG/ML (5 ML VIAL-PF) SQ ONE (13:21)
--- NOTE | 2022-02-24 16:56 | CT ---
EXAMINATION TYPE: CT abdomen pelvis w con DATE OF EXAM: 02/24/2022 COMPARISON: 02/10/2022 HISTORY: Follow up for diverticular abscess. CT DLP: 2261.4 mGycm Automated exposure control for dose reduction was used. CONTRAST: Performed with IV Contrast, patient injected with 100ml mL of Isovue 300. Images obtained from the diaphragm to the floor the pelvis with oral and IV contrast. There is mild bilateral pleural effusions. Heart size is normal. No pericardial effusion. Liver and s pleen are intact. Stomach is intact. There is no pancreatic mass. There is mild abdominal ascites flu id throughout the abdomen. The bile ducts are not dilated. There is no adrenal mass. Kidneys show satisfactory contrast opacific ation. There is no hydronephrosis. Ureters are not dilated. There is no retroperitoneal adenopathy. There is no evidence of fracture of the lumbar spine. Vertebrae have fairly normal alignment. 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 The bony pelvis is intact. The hip joints are intact. T here is subcutaneous edema around the abdomen. IMPRESSION: There is moderate abdominal ascites fluid which is improved compared to old exam. No evidence of dive rticulitis. No bowel obstruction. No sign of an abscess. No evidence of intestinal ileus. There is some mild atelectasis in pleural fluid at the lung bases without change. Subcutaneous edema around the abdomen not significantly different.
[2022-02-24] MEDS ORDERED: POTASSIUM CHLORIDE ER 20 MEQ TAB.ER PO STA (17:11)
--- NOTE | 2022-02-24 17:11 | P.PN ---
Subjective Progress Note Date: 02/24/22 Principal diagnosis: Swelling Patient still is bilateral leg swelling as well as abdominal distention. No pain, no fevers, no nausea or vomiting. No diarrhea. Objective - Vital Signs Vital signs: Vital Signs Temp 98.8 F 02/24/22 08:00 Pulse 78 02/24/22 16:43 Resp 18 02/24/22 16:43 BP 152/77 02/24/22 16:43 Pulse Ox 99 02/24/22 16:43 Intake & Output 02/23/22 02/24/22 02/24/22 18:59 06:59 18:59 Intake Total 310 Balance 310 Weight 110.223 kg 110.223 kg Intake: Blood Product 310 Rc As-1 Unit 310 [id number] Other: Voiding Method Urinal # Voids 2 - Exam Constitutional: No acute distress, conversant, pleasant Eyes:Anicteric sclerae, moist conjunctiva, no lid-lag, PERRLA, ENMT: Oropharynx clear, no erythema, exudates Neck: Supple, FROM, no masses, or JVD, No carotid bruits, No thyromegaly Lungs: Clear to auscultation, Clear to percussion, Normal respiratory effort, no accessory muscle use Cardiovascular: Heart regular in rate and rhythm, No murmurs, gallops, or rubs, 3+ peripheral edema Abdominal: Soft, distended. Nontender, no guarding, rebound or rigidity, Normoactive bowel sounds, No hepatomegaly, No splenomegaly, No palpable mass Skin: Normal temperature, tone, texture, turgor, no induration, No subcutaneous nodules, No rash, lesions, No ulcers Extremities: No digital cyanosis, No clubbing, Pedal pulses intact and symmetrical, Radial pulses intact and symmetrical, No calf tenderness Psychiatric: Alert and oriented to person, place and time, appropriate affect, i ntact judgement Neuro: Muscles Strength 5/5 in all 4 extremities, Sensation to light touch grossly present throughout, Cranial nerves II-XII grossly intact, no focal sensory deficits - Labs CBC & Chem 7: 02/24/22 04:40 02/24/22 04:40 Labs: Abnormal Lab Results - Last 24 Hours (Table) 02/23/22 02/24/22 02/24/22 Range/Units 16:50 04:40 04:40 RBC 2.97 L (4.40-5.60) X 10*6/uL Hgb 8.2 L (13.0-17.0) g/dL Hct 26.2 L (39.6-50.0) % MCHC 31.3 L (32.0-37.0) g/dL RDW 19.8 H (11.5-14.5) % Potassium 3.4 L (3.5-5.5) mmol/L Chloride 111 H (96-109) mmol/L Anion Gap 3.70 L (10.00-18.00) mmol/L BUN 2.8 L (9.0-27.0) mg/dL Creatinine 0.5 L (0.6-1.5) mg/dL BUN/Creatinine Ratio 5.60 L (12.00-20.00) Ratio Calcium 7.6 L (8.7-10.3) mg/dL Total Bilirubin 2.00 H (0.30-1.20) mg/dL ALT 5 L (10-49) U/L Total Protein 5.4 L (6.2-8.2) g/dL Albumin 1.8 L (3.8-4.9) g/dL Globulin 3.6 H (1.6-3.3) g/dL Albumin/Globulin Ratio 0.50 L (1.60-3.17) g/dL Crossmatch See Detail Assessment and Plan Plan: Abdominal distention, ascites -Patient had CT abdomen on 02/10 showing worsening ascites with no definitive cirrhosis noted -Patient is hypoalbuminemic at 2.3 (previously 1.9) -Suspect ascites secondary to increased salt and fluid load in setting of IV Zosyn with possible developing cirrhosis -Consult IR for paracentesis -Obtain liver ultrasound Normocytic anemia, previous workup consistent with anemia of chronic disease with component of iron deficiency -FOBT negative -1 unit PRBCs given -Monitor CBC Hypokalemia -Replace and monitor Perforated diverticulitis with abscess, on IV Zosyn -ID consult for guidance regarding continuation of antibiotics -General surgery consult for follow up DVT prophylaxis -Heparin subcu CODE STATUS: Full Code Discussed with: Patient Anticipated discharge date: 02/[address]: Home
[2022-02-24] MEDS: SODIUM CHLORIDE 0.9% 1,000 ML IV SCH (18:10)
[2022-02-24 22:50] LABS: LDH, Body Fluid Source Paracentesis Fluid; T. Protein, Body Fluid Source Paracentesis Fluid; Total Protein, Body Fluid 2150 mg/dL
--- NOTE | 2022-02-24 23:31 | P.CONS ---
History of Present Illness - Reason for Consult Consult date: 02/24/22 Perforated diverticulitis Requesting physician: Roni Ojeda - Chief Complaint Lower extremity swelling x few weeks - History of Present Illness Patient is a 61-year-old male with a past medical history significant for liver cirrhosis in this patient who was recently admitted at this facility for perforated diverticulitis with an abscess in this patient refuses for surgical intervention patient subsequently got a PICC line and was advised a 2-week course of IV Zosyn with the patient was receiving at home at the end of the 2 weeks he did have a repeat CAT scan which did shows decrease in size of the abscess but not complete evaluation hence his antibiotic were extended by another 2 weeks the patient was currently receiving at home patient did have a visit at [facility] to establish a PCP and the patient was noticed to have significant swelling to lower extremity as the patient has been sent to the ER for further evaluation patient denies having any fever or any chills no chest pain shortness of breath or cough no abdominal pain no nausea no vomiting no mynor rrhea worsening swelling to the lower extremity but no redness no open wound or any drainage Review of Systems Positive point has been mentioned in the HPI rest of the systems are negative Past Medical History Past Medical History: No Reported History Additional Past Medical History / Comment(s): Diverticulitis History of Any Multi-Drug Resistant Organisms: None Reported Past Surgical History: No Surgical Hx Reported Past Psychological History: No Psychological Hx Reported Smoking Status: Never smoker Past Alcohol Use History: Occasional Past Drug Use History: Marijuana - Past Family History Father Family Medical History: Hypertension Mother Family Medical History: Diabetes Mellitus Medications and Allergies Home Medications Medication Instructions Recorded Confirmed Type Furosemide [Lasix] 40 mg PO DAILY 30 Days #30 tablet 02/25/22 Rx Spironolactone [Aldactone] 25 mg PO DAILY 30 Days #30 tablet 02/25/22 Rx Allergies Allergy/AdvReac Type Severity Reaction Status Date / Time No Known Allergies Allergy Verified 02/23/22 14:46 Physical Exam Vitals: Vital Signs Temp Pulse Resp BP Pulse Ox 02/23/22 22:30 150/80 02/23/22 22:00 75 18 164/86 99 02/23/22 21:45 98.3 F 81 18 164/86 98 02/23/22 21:30 76 18 155/97 99 02/23/22 21:00 77 18 162/88 99 02/23/22 20:30 76 18 154/86 98 02/23/22 20:05 98.0 F 80 18 154/86 99 02/23/22 20:00 77 18 152/77 98 02/23/22 19:35 97.8 F 78 18 152/77 99 02/23/22 19:30 86 18 152/88 97 02/23/22 19:25 97.8 F 80 18 152/88 99 02/23/22 17:30 77 18 149/82 98 02/23/22 17:00 73 20 168/92 98 02/23/22 12:10 98.1 F 82 18 141/72 98 Intake and Output 02/23/22 02/24/22 02/24/22 22:59 06:59 14:59 Intake Total 310 Balance 310 Intake: Blood Product 310 Rc As-1 Unit 310 [id number] GENERAL DESCRIPTION: Middle-aged male lying in bed, no distress. No tachypnea or accessory muscle of respiration use. HEENT: Shows Pallor , no scleral icterus. Oral mucous membrane is dry. No pharyngeal erythema or thrush NECK: Trachea central, no thyromegaly. LUNGS: Unlabored breathing. Clear to auscultation anteriorly. No wheeze or crackle. HEART: S1, S2, regular rate and rhythm. No loud murmur ABDOMEN: Soft, abdominal distention but no tenderness , guarding or rigidity, no organomegaly EXTREMITIES: 2+ edema of feet. SKIN: No rash, no masses palpable. NEUROLOGICAL: The patient is awake, alert, oriented x3, mood and affect normal. Results CBC & Chem 7: 02/25/22 06:07 02/25/22 06:07 Labs: Abnormal Lab Results - Last 24 Hours (Table) 02/23/22 02/23/22 02/23/22 Range/Units 15:01 15:01 15:01 RBC 2.26 L (4.30-5.90) m/uL Hgb 6.2 L* D (13.0-17.5) gm/dL Hct 20.1 L (39.0-53.0) % MCHC 30.8 L (31.0-37.0) g/dL RDW 20.0 H (11.5-15.5) % PT 12.7 H (9.0-12.0) sec INR 1.2 H (<1.2) Potassium 3.2 L (3.5-5.1) mmol/L Chloride 112 H (98-107) mmol/L BUN 3 L (9-20) mg/dL Creatinine 0.53 L (0.66-1.25) mg/dL Glucose 133 H (74-99) mg/dL Calcium 7.6 L (8.4-10.2) mg/dL Albumin 2.3 L (3.5-5.0) g/dL Crossmatch 02/23/22 02/24/22 Range/Units 16:50 04:40 RBC 2.97 L (4.30-5.90) m/uL Hgb 8.2 L (13.0-17.5) gm/dL Hct 26.2 L (39.0-53.0) % MCHC 31.3 L (31.0-37.0) g/dL RDW 19.8 H (11.5-15.5) % PT (9.0-12.0) sec INR (<1.2) Potassium (3.5-5.1) mmol/L Chloride (98-107) mmol/L BUN (9-20) mg/dL Creatinine (0.66-1.25) mg/dL Glucose (74-99) mg/dL Calcium (8.4-10.2) mg/dL Albumin (3.5-5.0) g/dL Crossmatch See Detail Assessment and Plan (1) Bowel perforation Current Visit: No Status: Acute Code(s): K63.1 - PERFORATION OF INTESTINE (NONTRAUMATIC) SNOMED Code(s): 05796290 Plan: 1patient with recent admission to the hospital in this patient did have perforated diverticulitis with an abscess and the patient did refuse surgical intervention patient subsequently has been treated with IV Zosyn and her last CAT scan did show decrease in size of the abscess will complete his admission, patient now being admitted to hospital with extremity swelling. 2we will obtain a CT abdominal pelvis to follow-up on the intra-abdominal abscess 3-continue with the Zosyn 3.375 g every 8 hour We will follow on clinical condition and cultures to further adjust medication if needed Thank you for this consultation will follow this patient along with you Time with Patient: Greater than 30
[2022-02-25 01:02] LABS: Appearance,BF Clear
[2022-02-25] MEDS: PIPERACILLIN-TAZOBACTAM 3.375 GM in SODIUM CHLORIDE 0.9% 100 ML IVPB SCH ×2 (01:35→08:09)
[2022-02-25] MEDS: HEPARIN SODIUM,PORCINE/PF 5,000 UNIT/0.5 ML SYRINGE SQ SCH ×2 (01:36→08:09)
[2022-02-25 08:59] LABS: Basophils # (A) 0.07 X 10*3/uL (0.00-0.10); Basophils % (A) 1.2 %; Eosinophils # (A) 0.61 X 10*3/uL (0.04-0.35); Eosinophils % (A) 10.1 %; HCT 26.8 % (39.6-50.0); HGB 8.4 g/dL (13.0-17.0); Immature Grans, Automated 0.3 %; Lymphocytes % (A) 26.5 %; MCH 27.4 pg (27.0-32.0); MCHC 31.3 g/dL (32.0-37.0); MCV 87.3 fL (80.0-97.0); Mean Platelet Volume 9.4 fL (9.5-12.2); Monocytes # (A) 0.72 X 10*3/uL (0.20-1.00); Monocytes % (A) 11.9 %; NRBC Per 100 WBC 0 /100 WBCS (0.0-0.0); Neutrophils # (A) 3.01 X 10*3/uL (1.80-7.70); Platelet Count 199 X 10*3/uL (140-440); RBC 3.07 X 10*6/uL (4.40-5.60); RDW 19.9 % (11.5-14.5); WBC 6.03 X 10*3/uL (4.50-10.00)
[2022-02-25 09:25] LABS: African American GFR (CKD) 136.5 (60.0-200.0); BUN/Creat Ratio 4.4 Ratio (12.00-20.00); Blood Urea Nitrogen 2.2 mg/dL (9.0-27.0); Calcium 7.6 mg/dL (8.7-10.3); Non-African American GFR(CKD) 117.8 (60.0-200.0); Potassium 3.9 mmol/L (3.5-5.5)
--- NOTE | 2022-02-25 12:30 | P.DS ---
Providers Date of admission: 02/23/22 21:36 Expected date of discharge: 02/25/22 Attending physician: Cruz Gonzalez MD Consults: 02/23/22 21:31 Consult Physician Urgent Consulting Provider: Fabian Vogt Consult Reason/Comments: Perforated diverticulitis Do you want consulting provider notified?: Yes 02/24/22 11:17 Consult Physician Urgent Consulting Provider: Colt Ho Consult Reason/Comments: Ascites, recent perforated diverticula Do you want consulting provider notified?: Yes Primary care physician: [facility] Course: 7-year-old male with no known PMH, recently admitted on 01/21 until 01/28 for perforated diverticulitis discharged home with PICC line and IV Zosyn who now presents to the emergency room with complaints of bilateral lower extremity edema extending up to the abdomen. The edema developed gradually over the past 1 week. Denied shortness of breath, orthopnea, chest pain. Denies lower extremity pain, abdominal pain, nausea, vomiting, diarrhea. The patient reports ongoing Zosyn IV use. He underwent a follow-up computed tomography scan on 02/10 which revealed significant improvement in the left abdominal abscess along with increasing ascites. Laboratory evaluation in the emergency room reveals a proBNP 262, albumin 2.3, INR 1.2, and hemoglobin 6.2 (previously 7.1 on discharge on 01/28). Patient reports that he gets minimal activity at home and is essentially seated in his couch most of the day. Denies noticing bloody or black tarry stools. Denies alcohol use. On examination he had significantly distended abdomen due to ascites. After he was admitted and interventional radiology was consulted for paracentesis was done on 02/24. He is currently is less distended compared to prior. Repeat computed tomography scan of the abdomen was done and that did not show any evidence of infection, abscess or diverticulitis. This was discussed with infectious disease who did not recommend any further antibiotics treatment. PICC line will be discontinued. Upon discharge patient will be started on diuretics. He will need to follow up with a liver specialist. He is currently tolerating diet, will be discharged in stable condition. Time for discharge 35 min Patient Condition at Discharge: Fair Plan - Discharge Summary Discharge Rx Participant: No New Discharge Prescriptions: New Spironolactone [Aldactone] 25 mg PO DAILY 30 Days #30 tablet Furosemide [Lasix] 40 mg PO DAILY 30 Days #30 tablet Discontinued Piperacillin-Tazobactam [Zosyn] 4.5 gm IVPB Q8HR #42 each Discharge Medication List Furosemide [Lasix] 40 mg PO DAILY 30 Days #30 tablet 02/25/22 [Rx] Spironolactone [Aldactone] 25 mg PO DAILY 30 Days #30 tablet 02/25/22 [Rx] Follow up Appointment(s)/Referral(s): [facility] [Primary Care Provider] - 1-2 days
[2022-02-25 12:46] VITALS: BP 139/78; PULSE 90; RESP 16; TEMP 98.1
--- NOTE | 2022-02-25 12:48 | P.PN ---
Progress Note - Text Progress Note Date: 02/25/22 Patient feels well. He denies any significant abdominal pain. He is complaining of some leg swelling. On exam vital signs are stable. Abdomen soft. There is evidence of ascites. Patient has diverticulosis without evidence of active diverticulitis. Patient will be discharged home per the medical service.
--- NOTE | 2022-02-27 08:54 | US ---
Ultrasound-guided paracentesis. DATE OF EXAM: 02/24/2022 CLINICAL HISTORY: Ascites The procedure was discussed with the patient. The risks, complications, benefits, and alternatives we re discussed and any questions were answered. Informed consent was obtained. The patient was placed s upine on the ultrasound table and prepped and draped in the usual sterile fashion. All elements of maximal barrier technique were utilized. Under ultrasound guidance, access into the right lower quadrant was obtained, via the paracentesis catheter system and direct ultrasound guidanc e. Approximately 6.1 liters of straw-colored fluid was removed. The patient was stable throughout the pr ocedure and remained stable upon discharge from Department of Radiology. IMPRESSION: Successful paracentesis under ultrasound guidance.
== END 2022-02-25 15:19 | disposition home or self-care (01) | DRG 948 ==
LOC: EC 10:42 → 6NMEDSUR 17:40 → OBSVTOIN 21:36 → 5NMEDONC 21:49
PROVIDERS: ADMIT Family Medicine; ATTEND Family Medicine
DX: R18.8 Other ascites (principal); K57.80 Diverticulitis of intestine, part unspecified, with perforation and abscess without bleeding; E87.6 Hypokalemia; K74.60 Unspecified cirrhosis of liver; D64.9 Anemia, unspecified; E88.09 Other disorders of plasma-protein metabolism, not elsewhere classified; Z79.899 Other long term (current) drug therapy; Z82.49 Family history of ischemic heart disease and other diseases of the circulatory system; Z83.3 Family history of diabetes mellitus
CPT/HCPCS: 36415; 49083; 74177; 76705; 80048; 80053; 82272; 83615; 83690; 83735; 83880; 84157; 84484; 85025; 85027; 85610; 85730; 86850; 86900; 86901; 86920; 89050; 93005; 96365; 96366; 96372; 99285

== ENCOUNTER 2023-06-05 09:08 | Day surgery (SDC) | payer BC ==
--- NOTE | 2023-06-04 08:21 | P.HPOR ---
History of Present Illness H&P Date: 06/04/23 Chief Complaint: Right shoulder pain The patient is a 63-year-old female who presents with progressive right shoulder pain for the past several years worsening over the past 6 months. She has anterior pain with any attempted overhead use. She is having significant night symptoms. She also notes significant stiffness. She's tried activity modifications, home stretching regimen along with anti-inflammatories without much relief. Review of Systems As per HPI Past Medical History Past Medical History: GERD/Reflux, Hypertension, Liver Disease, Osteoarthritis (OA) Additional Past Medical History / Comment(s): Perforated colon/diverticulitis with abscess, lower extremity edema/ascities/slight cirrhosis of liver/paracentesis was done, anemia, jaw fracture with surgery. History of Any Multi-Drug Resistant Organisms: None Reported Past Surgical History: No Surgical Hx Reported Additional Past Surgical History / Comment(s): 01/27/22 PICC, jaw surgery as a child d/t fractured. Past Anesthesia/Blood Transfusion Reactions: No Reported Reaction Additional Past Anesthesia/Blood Transfusion Reaction / Comment(s): Pt has never had anesthesia, pt has hx of jaw fracture with surgery and sometimes jaw with hurt or "pop". Pt has never received blood. Past Psychological History: No Psychological Hx Reported Additional Psychological History / Comment(s): Pt resides with his spouse of 40 yrs. Pt is independent and drives. Smoking Status: Never smoker Past Alcohol Use History: Occasional Additional Past Alcohol Use History / Comment(s): Pt drinks beer but less than 14 beers a week anymore. Past Drug Use History: Marijuana Additional Drug Use History / Comment(s): Pt smokes 4 marijuana joints a day. - Past Family History Father Family Medical History: Hypertension Additional Family Medical History / Comment(s): Gout Mother Family Medical History: Diabetes Mellitus Medications and Allergies Home Medications Medication Instructions Recorded Confirmed Type Cholecalciferol (Vitamin D3) 125 mg PO MO 05/28/23 05/28/23 History [Vitamin D3 (125 MCG = 5,000 IU)] Ibuprofen [Motrin Ib] 200 mg PO Q8HR PRN 05/28/23 05/28/23 History Losartan Potassium 100 mg PO QAM 05/28/23 05/28/23 History Allergies Allergy/AdvReac Type Severity Reaction Status Date / Time No Known Allergies Allergy Verified 05/28/23 14:49 Physical Examination - Shoulder right Tenderness with palpation: anterior, bicipital groove Pain: with forward flexion, with external rotation ROM: forward flexion: 60 degrees (60 passively, 95 actively) ROM: internal rotation: lower lumbar ROM: external rotation: 40 degrees Crepitus with motion: Yes Strength: abduction: 5/5 Strength: external rotation: 5/5 Tests: internal impingement tests: positive, external impingment tests: positive Results The patient is a well-developed well-nourished female, approximate 5 foot 4, 188 pounds of endomorphic habitus. Exam is nonfocal, neck is supple. She's tender about the anterior glenohumeral joint on the right. She has moderate crepitus. Jefferson, Neer's sign, and speed tests are positive. Her distal neurovascular appears intact in the right upper shoulder. - Diagnostic results Shoulder x-ray: image reviewed (3 views of the right shoulder obtained in the office shows severe glenohumeral joint osteoarthrosis with [id number] changes. The humeral head to acromial distance appears maintained.) Assessment and Plan Assessment: Severe right glenohumeral joint osteoarthrosis Plan: I talked to the patient with regard her condition along treatment options. At this point she is quite limited because of pain, stiffness, and mechanical symptoms related to her right glenohumeral joint osteoarthrosis despite attempted conservative measures. After thorough discussion she has proceed with surgery. We will plan to proceed with right total shoulder arthroplasty. Risks and benefits were discussed at length in layman's terms.
[~2023-06-05 09:08] MED LIST changes: +ACETAMINOPHEN TAB 500 MG TAB PO PRN; +MELOXICAM 7.5 MG TAB PO PRN; -PIPERACILLIN-TAZOBACTAM 3.375 GM in SODIUM CHLORIDE 0.9% 100 ML IVPB SCH; +TRANEXAMIC 1,000 MG/100ML-NACL 1,000 MG in SALINE 1 100ML.BAG IVPB PRN
[2023-06-05] MEDS ORDERED: HYDROmorphone 0.5 MG/0.5 ML SYRINGE IVP PRN ×2 (09:55→13:39)
[2023-06-05 10:23] LABS: Glucose,Whole Blood 128 mg/dL (70-110)
[2023-06-05] MEDS: LACTATED RINGERS 1,000 ML IV SCH (10:26)
[2023-06-05] MEDS: ONDANSETRON 4 MG/2 ML VIAL IVP ONE ×2 (10:29→16:56)
[2023-06-05] MEDS ORDERED: MIDAZOLAM 2 MG/2 ML VIAL IVP ONE (10:53)
[2023-06-05] MEDS: DEXAMETHASONE SOD PHOSPHATE 4 MG/ML 1 ML VIAL IV ONE ×2 (11:12→16:56)
[2023-06-05] MEDS ORDERED: TRANEXAMIC 1,000 MG/100ML-NACL PREMIX BAG ONE (11:34)
[2023-06-05] MEDS ORDERED: fentaNYL (PF) 50 MCG/ML 2 ML AMP ONE (11:34)
[2023-06-05] MEDS ORDERED: SUCCINYLCHOLINE CHLORIDE 200 MG/10 ML VIAL IV ONE (11:34)
[2023-06-05] MEDS ORDERED: MIDAZOLAM 2 MG/2 ML VIAL ONE (11:34)
[2023-06-05] MEDS ORDERED: NEOSTIGMINE 1 MG/ML 10 ML VIAL ONE (11:34)
[2023-06-05] MEDS ORDERED: ROCURONIUM 10 MG/ML (5 ML VIAL) IV ONE (11:34)
[2023-06-05] MEDS ORDERED: GLYCOPYRROLATE 0.2 MG/ML 2 ML VIAL ONE (11:34)
[2023-06-05] MEDS ORDERED: LIDOCAINE 2% INJ 20 MG/ML (2 ML VIAL) ONE (11:34)
[2023-06-05] MEDS ORDERED: ePHEDrine 50 MG/ML 1 ML VIAL ONE (11:34)
[2023-06-05] MEDS ORDERED: PROPOFOL 10 MG/ML 20 ML VIAL IV ONE (11:34)
[2023-06-05] MEDS ORDERED: ROPIVACAINE 5 MG/ML 30 ML VIAL ONE (11:34)
[2023-06-05] MEDS ORDERED: PHENYLEPHRINE-0.9% NACL SYG 1,000 MCG/10 ML SYRINGE ONE (11:34)
[2023-06-05] MEDS ORDERED: LACTATED RINGERS 1,000 ML IV ONE (12:12)
[2023-06-05] MEDS ORDERED: ceFAZolin 1,000 MG in SODIUM CHLORIDE 0.9% 1,000 ML IRRIGATION ONE (12:12)
--- NOTE | 2023-06-05 12:21 | P.ANPRN ---
Procedure Note - Anesthesia - Nerve Block Performed Right Interscalene Single Time Out Performed: Yes ([id number]) Date of Procedure: 06/05/23 Procedure Start Time: 10:53 Procedure Stop Time: 10:58 Location of Patient: PreOp Indication: Acute Post-Operative Pain, Requested by Surgeon Specifically requested for management of pain by : Gage Bradford Sedation Type: Sedate with meaningful contact maintained Preparation: Sterile Prep Position: Supine Catheter: None Needle Types: Pajunk Needle Gauge: 21 Ultrasound used to visualize needle placement: Yes Ultrasound used to observe medication spread: Yes Injectate: 0.5% Ropivacaine (see comment for volume) (30cc) Blood Aspirated: No Pain Paresthesia on Injection Noted: No Resistance on Injection: Normal Image Stored and Saved: Yes Events: Uneventful and Well Tolerated
[2023-06-05] MEDS ORDERED: hydrOXYzine pamoate 25 MG CAP PO PRN (13:39)
[2023-06-05] MEDS ORDERED: SENNOSIDES-DOCUSATE SODIUM 1 EACH TAB PO PRN (13:39)
[2023-06-05] MEDS ORDERED: HYDROcodone/APAP 5-325MG 1 EACH TAB PO PRN ×2 (13:39)
[2023-06-05] MEDS ORDERED: HYDROmorphone 1 MG/ML 1 ML SYRINGE IVP PRN (13:39)
--- NOTE | 2023-06-05 13:59 | P.OP ---
Date of Procedure: 06/05/23 Preoperative Diagnosis: Severe right glenohumeral joint osteoarthrosis Postoperative Diagnosis: Same Procedure(s) Performed: Right total shoulder arthroplasty Implants: [employer] size 12 press-fit humeral stem, size total-body, 52 x 18 eccentric humeral head, 48 mm central pegged cemented glenoid component. Anesthesia: edie SAENZ Surgeon: Gage Bradford Associate Sales #1: Navi Lantigua Estimated Blood Loss (ml): 150 Pathology: other (Humeral head) Condition: stable Indications for Procedure: The patient's a 63-year-old male who presents with progressive right shoulder pain secondary to osteoarthrosis despite attempted conservative measures. A dis cussion of the risks and benefits of operative intervention versus continued conservative measures was made with the patient. He opted to proceed with surgery. Operative risks to include infection, neurovascular injury, development of blood clots, fracture, possible component loosening/failure need for subsequent procedures was discussed. Informed consent was obtained. Operative Findings: As below Description of Procedure: The patient was brought to the operating room, and after induction of general anesthesia was placed in the beachchair position. The bony prominences were appropriately padded. The right upper extremity was prepped and draped in normal fashion. A deltopectoral incision was then made lateral to the coracoid process extending approximately 12 cm. The skin was incised sharply. Subcutaneous tissues were divided bluntly. Electrocautery was used for hemostasis. The deltopectoral interval was identified and the cephalic vein gently retracted laterally with the deltoid. Subdeltoid adhesions were bluntly dissected. A self-retaining retractor was placed. The clavipectoral fascia was opened and the conjoined tendon gently retracted medially. The upper one third of the pectoralis major was released to help facilitate exposure. The biceps was identified and the sheath was opened. The rotator interval was opened. The biceps was tenotomized and allowed to retract distally. The subscapularis was peeled off the lesser tuberosity and tagged with #2 Ethibond suture. The humeral head was then exposed releasing the capsule off the humeral neck. The shoulder was gently dislocated. A starting hole was made in the head in line with the humeral shaft. The shaft was reamed by hand up to 12 mm. There is good distal chatter. The cutting guide was placed planning on 8 cut flush with the rotator cuff insertion and 30 of retroversion. The cutting block was pinned in place. The humeral head cut was then made. This measured most appropriately at 52 x 18 mm. Residual inferior osteophytes were carefully removed flush with the lummi cortical bone. A posterior glenoid retractor was placed. The glenoid was then exposed releasing the labrum from the 12- 6 o'clock position. Residual labral tissue was removed. The glenoid sized most appropriate 48 mm. A guidewire was then inserted planning on the appropriate version. The glenoid was reamed down to a bleeding bony surface. The central pedicle was drilled. The alignment guide was placed in the peripheral peg holes drilled. The trial size 48 mm glenoid was placed and was fully seated. There was good anterior to posterior and inferior to superior fit. The trial component was removed. Pulsatile lavage was utilized. The bony surface was dried. The peripheral peg holes were then pressurized with cement utilizing a syringe. Excess cement was removed. A central pegged glenoid was then placed and was fully seated. This was gently impacted. This was held in place until the cement had sufficiently hardened. Attention was then paid again towards preparing the proximal humerus. The 12 broach was placed in 30 of retrovers ion and was fully seated. An eccentric 52 x 18 mm humeral head was placed. The shoulder was gently reduced. It was taken through a range of motion. It was felt to be stable in flexion and extension with internal and external rotation. I felt there was adequate jewish of soft tissue tension. The shoulder was gently dislocated. The trial components were then removed. A #2 Ethibond was p laced laterally for reattachment of the lesser tuberosity. The humeral stem was inserted in 30 of retroversion and was fully seated. There was good rotational stability. The eccentric 52 x 18 mm humeral head was gently impacted. The shoulder was then gently reduced and taken through range of motion and was felt to be stable. Pulsatile lavage was utilized. The subscapularis was repaired to the lesser tuberosity with #2 Ethibond suture.. The rotator interval was closed with #2 Ethibond suture. There was minimal drainage at this point therefore a deep drain was not placed. The deltopectoral interval was closed with interrupted 2-0 Vicryl sutures. The subcu tissues were reapproximated with interrupted 2-0 Vicryl sutures. The skin was reapproximated with 3-0 subcuticular Prolene suture. Steri-Strips were applied. A sterile dressing was applied in addition to a sling. The patient was then awoken from general anesthesia and transferred to recovery room in good condition. Blood loss was estimated at 150 mL. No complications were incurred. Sponge and needle counts were correct at the end the case. Navi WOLFE assisted during the major components the case to include positioning, exposure, resection, implantation, and closure.
--- NOTE | 2023-06-05 14:30 | XR ---
EXAMINATION TYPE: XR shoulder limited RT DATE OF EXAM: 06/05/2023 2:26 PM INDICATION: Patient age:Male; 63 years old; Reason for study: s/p right total shoulder arthroplasty; COMPARISON: Chest radiograph 01/21/2022 TECHNIQUE: The right shoulder was examined in the frontal view. FINDINGS: Postsurgical changes from right shoulder arthroplasty. Hardware appears intact with appropriate align ment. There is associated soft tissue gas and edema. No acute fracture or dislocation. The remaining portions of the visualized chest are unremarkable. IMPRESSION: Postsurgical changes from right shoulder arthroplasty. Hardware appears intact with appropriate align ment.
[2023-06-05 15:57] LABS: Anisocytosis Slight; Basophils % (A) 0 %; Eosinophils # (A) 0.1 k/uL (0-0.7); Eosinophils % (A) 1 %; HCT 33.1 % (39.0-53.0); HGB 10.9 gm/dL (13.0-17.5); Hypochromasia Slight; Lymphocytes # (A) 0.5 k/uL (1.0-4.8); Lymphocytes % (A) 6 %; MCH 27.2 pg (25.0-35.0); MCHC 32.9 g/dL (31.0-37.0); MCV 82.7 fL (80.0-100.0); Mean Platelet Volume 7.8; Monocytes # (A) 0.2 k/uL (0-1.0); Monocytes % (A) 2 %; Neutrophils # (A) 6.9 k/uL (1.3-7.7); Neutrophils % (A) 90 %; Platelet Count 176 k/uL (150-450); RDW 17.7 % (11.5-15.5); WBC 7.7 k/uL (3.8-10.6)
[2023-06-06 08:42] VITALS: BP 122/71; PULSE 95; RESP 18; TEMP 98.7
[2023-06-06] MEDS ORDERED: ASPIRIN 325 MG TAB PO SCH (09:00)
[2023-06-06] MEDS ORDERED: LOSARTAN 50 MG TAB PO SCH (09:00)
--- NOTE | 2023-06-06 09:42 | P.DS ---
Providers Date of admission: 06/05/2023 Expected date of discharge: 06/06/23 Attending physician: Gage Bradford Consults: 06/05/23 13:39 Consult Physician Routine Consulting Provider: Maria L Eli Consult Reason/Comments: medical management s/p right total shoulder arthroplasty Do you want consulting provider notified?: Yes Primary care physician: Maria L Eli Hospital Course: Date of admission: 06/05/2023 Date of discharge: 06/06/2023 Admission diagnosis: Right severe glenohumeral joint osteoarthrosis Discharge diagnosis: Same Attending physician: Dr. Bradford Surgical procedures: Right total shoulder arthroplasty Brief history: Patient is a 63-year-old male with a history of Right severe glenohumeral joint osteoarthrosis. At this point patient has failed con servative treatment measures and has opted to proceed with a elective total shoulder arthroplasty. Hospital course: Details of patient's surgery can be found in operative report. Patient tolerated the procedure well and was subsequently transported to orthopedic floor. Patient's orthopeidc and medical care was provided daily. Patient had daily laboratory tests performed for evaluation of overall blood counts. Patient had daily physical therapy to include strengthening range of motion as well as education with walker ambulation. Patient was treated with aspirin for their postoperative DVT prophylaxis during their inpatient stay. Patient was noted to have a relatively uneventful postoperative course. Patient reported satisfactory pain control with oral pain medications by postoperative day 1. Patient showed satisfactory progress with physical therapy. Patient moved steadily through the program and had no difficulty meeting the goals by postoperative day 1. Given patient's otherwise satisfactory course and having met physical therapy goals, plan is to discharge patient home on postoperative day 1. Discharge condition/disposition: Patient will be discharged home in stable con dition. Discharge medications: Instructions are given on resumption of patient's normal daily medications per primary care recommendation, in addition patient will be prescribed [place]; aspirin; senna. Orthopedic Discharge Instructions: 1. Wound care and infection precautions, keep incision dry and covered while showering, no lotions, creams, moisturizers. No soaking, pools, hot tubs. Do not scrub over incision. 2. Nonweightbearing right upper extremity 3. Ice when necessary. Do not exceed 20 minutes per hour with ice pack. 4. Utilize sling to right upper extremity until follow-up appointment office 5. Pain meds and anticoagulants per prescription. 6. Pain medication has potential to cause constipation. Increase oral fluid and fiber intake. Contact primary care provider if you have not had a bowel movement within 48 hours after discharge. 7. No anti-inflammatory medication until discussed at first post operative visit, this including Motrin, Aleve, Mobic, Diclofenac. 8. Follow up in office at 2 weeks postop with Pardeep Elizabeth PA-C / Navi Lantigua PA-C 9. Follow up with your primary care doctor 7-10 days after discharge. 10. Contact [facility] with any questions, . Keep incision clean, dry, intact. While showering, cover incision with Saran wrap. Keep Steri-Strips on until follow-up appointment in office in 2 weeks Assessment: Right severe glenohumeral joint osteoarthrosis Procedures: Right total shoulder arthroplasty Patient Condition at Discharge: Good Plan - Discharge Summary Discharge Rx Participant: Yes New Discharge Prescriptions: New Sennosides/Docusate Sodium [Senna Plus 8.6-50 mg Softgel] 1 each PO DAILY #20 capsule Aspirin 325 mg PO DAILY #28 tab HYDROcodone/APAP 5-325MG [[place] 5-325] 1 tab PO Q6HR PRN #28 tab PRN Reason: Pain No Action Cholecalciferol (Vitamin D3) [Vitamin D3 (125 MCG = 5,000 IU)] 125 mg PO MO Losartan Potassium 100 mg PO QAM Ibuprofen [Motrin Ib] 200 mg PO Q8HR PRN PRN Reason: Pain Discharge Medication List Cholecalciferol (Vitamin D3) [Vitamin D3 (125 MCG = 5,000 IU)] 125 mg PO MO 05/28/23 [History] Ibuprofen [Motrin Ib] 200 mg PO Q8HR PRN 05/28/23 [History] Losartan Potassium 100 mg PO QAM 05/28/23 [History] Aspirin 325 mg PO DAILY #28 tab 06/06/23 [Rx] HYDROcodone/APAP 5-325MG [[place] 5-325] 1 tab PO Q6HR PRN #28 tab 06/06/23 [Rx] Sennosides/Docusate Sodium [Senna Plus 8.6-50 mg Softgel] 1 each PO DAILY #20 capsule 06/06/23 [Rx] Follow up Appointment(s)/Referral(s): Navi Lantigua, PAC [PHYSICIAN MANAGER OPERATIONS AND PROCUREMENT] - 06/21/23 9:40 am Patient Instructions/Handouts: Shoulder Arthroplasty (DC) Activity/Diet/Wound Care/Special Instructions: Orthopedic Discharge Instructions: 1. Wound care and infection precautions, keep incision dry and covered while showering, no lotions, creams, moisturizers. No soaking, pools, hot tubs. Do not scrub over incision. 2. Nonweightbearing right upper extremity 3. Ice when necessary. Do not exceed 20 minutes per hour with ice pack. 4. Utilize sling to right upper extremity until follow-up appointment office 5. Pain meds and anticoagulants per prescription. 6. Pain medication has potential to cause constipation. Increase oral fluid and fiber intake. Contact primary care provider if you have not had a bowel movement within 48 hours after discharge. 7. No anti-inflammatory medication until discussed at first post operative visit, this including Motrin, Aleve, Mobic, Diclofenac. 8. Follow up in office at 2 weeks postop with Pardeep Elizabeth PA-C / Navi Lantigua PA-C 9. Follow up with your primary care doctor 7-10 days after discharge. 10. Contact [facility] with any questions, . Keep incision clean, dry, intact. While showering, cover incision with Saran wrap. Keep Steri-Strips on until follow-up appointment in office in 2 weeks Discharge Disposition: HOME SELF-CARE
--- NOTE | 2023-06-06 10:37 | P.CONS ---
History of Present Illness - Reason for Consult Consult date: 06/05/23 - History of Present Illness Scooter Lyons, is a 63-year-old male patient who presented for an elective right shoulder arthroplasty with Dr. Paiz on 06/05/2023. Patient has past medical history of GERD, hypertension, liver disease, perforated colon with abscess and previous EtOH. At this time patient is resting comfortably in bed mild right shoulder discomfort. Patient denies chest pain or shortness of breath. Patient denies nausea vomiting or diarrhea. Patient reports he has been able to urinate. Vital signs temp 98.7, heart rate 95, respiratory rate 18, blood pressure 122/71 pulse ox 97% on room air. Review of Systems Please refer to HPI otherwise unremarkable Past Medical History Past Medical History: GERD/Reflux, Hypertension, Liver Disease, Osteoarthritis (OA) Additional Past Medical History / Comment(s): Perforated colon/diverticulitis with abscess, lower extremity edema/ascities/slight cirrhosis of live r/paracentesis was done, anemia, jaw fracture with surgery. History of Any Multi-Drug Resistant Organisms: None Reported Past Surgical History: No Surgical Hx Reported Additional Past Surgical History / Comment(s): 01/27/22 PICC, jaw surgery as a child d/t fractured. Past Anesthesia/Blood Transfusion Reactions: No Reported Reaction Additional Past Anesthesia/Blood Transfusion Reaction / Comm: Pt has never had anesthesia, pt has hx of jaw fracture with surgery and sometimes jaw with hurt or "pop". Pt has never received blood. Past Psychological History: No Psychological Hx Reported Additional Psychological History / Comment(s): Pt resides with his spouse of 40 yrs. Pt is independent and drives. Smoking Status: Never smoker Past Alcohol Use History: Occasional Additional Past Alcohol Use History / Comment(s): Pt drinks beer but less than 1 4 beers a week anymore. Past Drug Use History: Marijuana Additional Drug Use History / Comment(s): Pt smokes 4 marijuana joints a day. - Past Family History Father Family Medical History: Hypertension Additional Family Medical History / Comment(s): Gout Mother Family Medical History: Diabetes Mellitus Medications and Allergies Home Medications Medication Instructions Recorded Confirmed Type Cholecalciferol (Vitamin D3) 125 mg PO MO 05/28/23 06/05/23 History [Vitamin D3 (125 MCG = 5,000 IU)] Ibuprofen [Motrin Ib] 200 mg PO Q8HR PRN 05/28/23 06/05/23 History Losartan Potassium 100 mg PO QAM 05/28/23 06/05/23 History Aspirin 325 mg PO DAILY #28 tab 06/06/23 Rx HYDROcodone/APAP 5-325MG [[place] 1 tab PO Q6HR PRN #28 tab 06/06/23 Rx 5-325] Sennosides/Docusate Sodium [Senna 1 each PO DAILY #20 capsule 06/06/23 Rx Plus 8.6-50 mg Softgel] Allergies Allergy/AdvReac Type Severity Reaction Status Date / Time No Known Allergies Allergy Verified 06/05/23 10:01 Physical Exam Vitals: Vital Signs Temp Pulse Pulse Resp BP Pulse Ox 06/05/23 15:03 66 16 103/58 98 06/05/23 14:45 69 16 99/62 98 06/05/23 14:38 114/69 06/05/23 14:30 75 16 114/61 100 06/05/23 14:15 77 16 104/66 100 06/05/23 13:58 97.2 F L 86 19 115/69 100 06/05/23 10:56 64 18 120/68 97 06/05/23 10:29 98.0 F 71 16 154/72 99 Intake and Output 06/05/23 06/05/23 06/05/23 06:59 14:59 22:59 Intake Total 1351 Output Total 150 Balance 1201 Intake: IV 1351 Output: Estimated Blood Loss 150 Other: Weight 87.3 kg Head normocephalic Neck supple Lungs clear to auscultation bilaterally no wheezing or crackles Heart regular rate and rhythm S1-S2, no rub or gallop Abdomen is soft nontender nondistended positive bowel sounds no hepatosplenomegaly Extremities no edema. Right shoulder dressing clean dry and intact Neuro alert and orientated to 3 Results CBC & Chem 7: 06/05/23 15:36 Labs: Abnormal Lab Results - Last 24 Hours (Table) 06/05/23 06/05/23 Range/Units 10:20 15:36 RBC 4.00 L (4.30-5.90) m/uL Hgb 10.9 L (13.0-17.5) gm/dL Hct 33.1 L (39.0-53.0) % RDW 17.7 H (11.5-15.5) % Lymphocytes # 0.5 L (1.0-4.8) k/uL POC Glucose (mg/dL) 128 H (70-110) mg/dL Assessment and Plan Assessment: 1. Right shoulder osteoarthritis status post right shoulder arthroplasty on 06/05/[address] Paiz 2. History of GERD 3. History of essential hypertension 4. History of osteoarthritis 5. History of perforated colon and diverticulitis with abscess Thank you for this consultation we will continue to follow patient closely throughout stay Time with Patient: Greater than 30 (Greater than 60% of the total time spent in counseling and coordination of care)
--- NOTE | 2023-06-06 10:55 | P.PN ---
Subjective Progress Note Date: 06/06/23 Principal diagnosis: Right severe glenohumeral joint osteoarthrosis Patient was seen at bedside this morning with bulky dressing over right shoulder sling right upper extremity. Patient says he has been up walking since surgery yesterday. Patient says his pain is well-controlled. Patient says he is having a little bit of numbness/tingling near the right elbow. Patient says he is looking forward to going home later today. Patient says he has urinated since surgery. Patient says he has not had bowel movement yet, however, patient says he has been passing gas. Patient denies any other changes at this time. Patient denies chest pain, fever, shortness of breath, nausea, loss of bowel/bladder control Objective - Vital Signs Vital signs: Vital Signs Temp 98.7 F 06/06/23 07:52 Pulse 95 06/06/23 07:52 Resp 18 06/06/23 07:52 BP 122/71 06/06/23 07:52 Pulse Ox 97 06/06/23 07:52 FiO2 Intake & Output 06/05/23 06/06/23 06/06/23 18:59 06:59 18:59 Intake Total 1351 Output Total 150 Balance 1201 Weight 87.3 kg Intake: IV 1351 Output: Estimated Blood Loss 150 Other: Voiding Method Urinal # Voids 0 1 # Bowel Movements 0 - Exam Right shoulder: Incision is clean, dry, and intact. The bulky dressing is in good condition. Patient has full range of motion of right elbow in flexion/extension and in right wrist in flexion/extension. There is minimal soft tissue swelling and ecchymosis surrounding the medial and lateral aspects of the incision. Calf is soft, no tenderness with palpation. Plantar flexion, dorsiflexion, EHL, FHL are intact. Sensory exam to light touch throughout the extremity is intact, dorsal pedis pulses 2+. Radial pulses intact, 2+ bilaterally - Labs CBC & Chem 7: 06/05/23 15:36 Labs: Abnormal Lab Results - Last 24 Hours (Table) 06/05/23 06/05/23 Range/Units 10:20 15:36 RBC 4.00 L (4.30-5.90) m/uL Hgb 10.9 L (13.0-17.5) gm/dL Hct 33.1 L (39.0-53.0) % RDW 17.7 H (11.5-15.5) % Lymphocytes # 0.5 L (1.0-4.8) k/uL POC Glucose (mg/dL) 128 H (70-110) mg/dL Assessment and Plan Assessment: 1. Right severe glenohumeral joint osteoarthrosis - Postoperative day 1 status post right total shoulder arthroplasty Plan: 1. Right severe glenohumeral joint osteoarthrosis - right total shoulder arthroplasty performed yesterday, 06/05/2023. Patient stable at bedside this morning with sling present to right upper extremity. Pain medic ation as needed. Discharge home today. 2. Appreciate medical management 3. Pain management - [place] 4. DVT prophylaxis - aspirin 325 mg daily 5. GI prophylaxis - senna 6. PT/OT - nonweightbearing right upper extremity. Maintain right upper extremity in sling at all times 7. Encourage incentive spirometer use 8. Discharge planning - discharge home today Time with Patient: Less than 30
[2023-06-06] MEDS: LACTATED RINGERS 1,000 ML IV SCH (11:26)
--- NOTE | 2023-06-06 17:14 | P.PN ---
Subjective Progress Note Date: 06/06/23 Scooter Lyons, is a 63-year-old male patient who presented for an elective right shoulder arthroplasty with Dr. Paiz on 06/05/2023. Patient has past medical history of GERD, hypertension, liver disease, perforated colon with abscess and previous EtOH. At this time patient is resting comfortably in bed mild right shoulder discomfort. Patient denies chest pain or shortness of breath. Patient denies nausea vomiting or diarrhea. Patient reports he has been able to urinate. Vital signs temp 98.7, heart rate 95, respiratory rate 18, blood pressure 122/71 pulse ox 97% on room air. On 06/06/2023 patient was seen and examined on the medical floor he is alert and oriented 3 in no apparent distress there is no fever or chills no headache or dizziness no chest pain no shortness of breath no cough no nausea or vomiting no abdominal pain no diarrhea and no urinary symptoms. Plan is for discharge to home today per orthopedic surgery, patient is medically stable for discharge. Objective - Vital Signs Vital signs: Vital Signs Temp 98.7 F 06/06/23 07:52 Pulse 95 06/06/23 07:52 Resp 18 06/06/23 07:52 BP 122/71 06/06/23 07:52 Pulse Ox 97 06/06/23 07:52 FiO2 Intake & Output 06/05/23 06/06/23 06/06/23 18:59 06:59 18:59 Intake Total 1351 Output Total 150 Balance 1201 Weight 87.3 kg Intake: IV 1351 Output: Estimated Blood Loss 150 Other: Voiding Method Urinal # Voids 0 1 # Bowel Movements 0 - Exam In general patient is alert and oriented x 3 in no distress HEENT head normocephalic and atraumatic Neck is supple no JVD no goiter no lymphadenopathy no carotid bruit Chest examination is clear to auscultation no crackles no wheezing Cardiac exam reveals regular heart sounds S1 and S2 no gallops no murmurs Abdomen is soft nontender no organomegaly with normal bowel sounds Extremity exam reveals no edema no cyanosis or clubbing Neurological examination reveals no gross focal deficits - Labs CBC & Chem 7: 06/05/23 15:36 Assessment and Plan Assessment: 1. Right shoulder osteoarthritis status post right shoulder arthroplasty on 06/05/[address] Paiz 2. History of GERD 3. History of essential hypertension 4. History of osteoarthritis 5. History of perforated colon and diverticulitis with abscess Thank you for this consultation we will continue to follow patient closely throughout stay
[2023-06-11] MEDS ORDERED: CHOLECALCIFEROL 125 MCG (5000 IU) TABLET PO SCH (09:00)
== END 2023-06-06 13:06 | disposition home or self-care (01) ==
LOC: OR 09:08 → 4SSUR 13:51 → OR 06-06 13:06
PROVIDERS: ATTEND Orthopaedic Surgery
DX: M19.011 Primary osteoarthritis, right shoulder (principal); I10 Essential (primary) hypertension; K21.9 Gastro-esophageal reflux disease without esophagitis; F12.90 Cannabis use, unspecified, uncomplicated; Z98.890 Other specified postprocedural states; Z86.59 Personal history of other mental and behavioral disorders; Z82.49 Family history of ischemic heart disease and other diseases of the circulatory system; Z83.3 Family history of diabetes mellitus; Z79.899 Other long term (current) drug therapy
CPT/HCPCS: 85025; 85730; 73020; 23472; 64415; J2250; J1100; J0690 ×2; J2405

== ENCOUNTER → 2025-04-27 | Outpatient (CLI) | payer OTHER ==
--- NOTE | 2025-04-27 16:38 | US ---
EXAMINATION TYPE: US venous doppler duplex LE BI DATE OF EXAM: 04/27/2025 4:03 PM COMPARISON: NONE CLINICAL INDICATION: Male, 64 years old with history of R29.898 OTH SYMPTOMS AND SIGNS INVOLVING THE MUSCU; Pain and cramping TECHNIQUE: The lower extremity deep venous system is examined utilizing real time linear array sonog joy with graded compression, color doppler sonography, and spectral doppler. RIGHT DEEP VEINS Common Femoral: Compressible Deep Femoral: Compressible Sup. Femoral - Prox: Compressible Sup. Femoral - Mid: Compressible Sup. Femoral - Dist: Compressible Popliteal: Compressible Posterior Tibial: Compressible Peroneal: Compressible LEFT DEEP VEINS Common Femoral: Compressible Deep Femoral: Compressible Sup. Femoral - Prox: Compressible Sup. Femoral - Mid: Compressible Sup. Femoral - Dist: Compressible Popliteal: Compressible Posterior Tibial: Compressible Peroneal: Compressible Right Leg: Negative for DVT, Color Doppler imaging shows patency of the vessels. Spectral waveforms are within normal limits. Left Leg: Negative for DVT, Color Doppler imaging shows patency of the vessels. Spectral waveforms a re within normal limits. IMPRESSION: No evidence for DVT within the bilateral lower extremities imaged from the groin to the upper calves. [facility], , 04/27/2025 4:35 PM
== END | disposition home or self-care (01) ==
LOC: RADUSWWP 15:36
PROVIDERS: ATTEND Family Medicine
DX: R29.898 Other symptoms and signs involving the musculoskeletal system (principal); R20.0 Anesthesia of skin
CPT/HCPCS: 93970